=== PATIENT | female | born 1995 | race Caucasian/White ===

== ENCOUNTER 2020-07-02 06:30 | Outpatient (REF) | payer OTHER, SELFPAY ==
[2020-07-02 07:10] LABS: COVID-19 Test Negative (Negative); IDNOW Serial# 9DD0AD1C
== END 2020-07-02 06:31 | disposition home or self-care (01) ==
LOC: HO.LAB 06:30
PROVIDERS: Visit Provider Internal Medicine
DX: Z20.828 Contact with and (suspected) exposure to other viral communicable diseases (principal)
CPT/HCPCS: 87635

== ENCOUNTER 2020-10-09 17:10 | Emergency (ER) | payer OTHER, SELFPAY ==
--- NOTE | ~2020-10-09 | XR_ITS ---
EXAMINATION: XR KNEE, RIGHT CLINICAL INFORMATION: Pain after injury COMPARISON: None TECHNIQUE: Four views of the right knee. FINDINGS: Normal alignment with no fracture. There is a moderate joint effusion. No joint space narrowing. XR/XR knee RT 4V IMPRESSION: Moderate joint effusion. No fracture.
[2020-10-09 17:47] VITALS: BP 136/68; PULSE 86; RESP 16; TEMP 36.8; O2SAT 98; BMI 48.0
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
== END 2020-10-09 19:02 | disposition home or self-care (01) ==
PROVIDERS: Emergency Provider Internal Medicine; PCP Internal Medicine
DX: M25.461 Effusion, right knee (principal); M25.561 Pain in right knee
CPT/HCPCS: 73564; 99283; 99284

== ENCOUNTER 2022-01-24 04:42 | Outpatient (REF) | payer OTHER, SELFPAY ==
[2022-01-24 05:04] LABS: COVID-19 Test Positive (Negative)
== END 2022-01-24 04:43 | disposition home or self-care (01) ==
LOC: HO.LAB 04:42
PROVIDERS: Visit Provider Internal Medicine
DX: Z20.822 Contact with and (suspected) exposure to COVID-19 (principal)
CPT/HCPCS: 87635

== ENCOUNTER 2022-10-02 08:40 | Outpatient (REF) | payer OTHER, SELFPAY ==
[2022-10-02 10:50] LABS: MANUAL DIFF FLAG NO
[2022-10-02 10:58] LABS: Appearance Urine Turbid; Color Urine Yellow; Glucose Urine UA Negative (Negative); Leukocyte Esterase Urine Negative (Negative); Nitrite Urine Negative (Negative); Specific Gravity - Urine >= 1.030 (1.005-1.025); UMIC TRIGGER UA YES; Urine Blood Moderate (2+) (Negative); Urine Ketones Negative (Negative); Urine Protein Negative (Neg-Trace)
[2022-10-02 10:58] LABS: Basophils Percent Auto 0.2 % (0-2); Eosinophils Absolute Auto 0.1 X10*3/uL (0.0-0.4); Eosinophils Percent Auto 2.2 % (0-4); Hematocrit 37.8 % (37.0-47.0); Hemoglobin 12.1 g/dl (12.0-16.0); Imm Gran Abs Auto 0.01 X10*3/uL (0.00-0.03); Imm Gran Pct Auto 0.2 % (0.0-0.4); Lymphocytes Absolute Auto 0.9 X10*3/uL (1.2-4.9); Lymphocytes Percent Auto 20.9 % (20-40); Mean Corpuscular Hemoglobin 27.3 pg (27.0-33.0); Mean Corpuscular Volume 85.3 fL (80.0-98.0); Mean Platelet Volume 8.8 fL (9.4-12.3); Monocytes Absolute Auto 0.4 X10*3/uL (0.1-1.2); Monocytes Percent Auto 10.6 % (2-11); Neutrophils Absolute Auto 2.8 x10*3/uL (2.0-8.3); Neutrophils Percent Auto 65.9 % (45-73); Platelet Count 313 X10*3/uL (160-400); Red Blood Count 4.43 X10*6/uL (4.20-5.50); Red Cell Distribution Width 13.1 % (11.0-16.0); White Blood Count 4.2 X10*3/uL (4.8-10.8)
[2022-10-02 11:06] LABS: Bacteria Urine 3+ (None Seen); Hyaline Casts Urine 0-2 /LPF (0-2); RBC Urine 0-2 /HPF (0-2); Squamous Epithelial Cell Urine >20 /HPF (0-2); WBC Urine 0-5 /HPF (0-5)
[2022-10-02 11:15] LABS: Alanine Aminotransferase 14 U/L (0-31); Alkaline Phosphatase 47 U/L (39-117); Anion Gap 10 (12-20); Aspartate Amino Transferase 16 U/L (5-31); Bilirubin Total 0.7 mg/dL (0.0-1.0); Blood Urea Nitrogen 16 mg/dL (9-16); Calcium 8.2 mg/dL (8.4-10.2); Carbon Dioxide 25 mmol/L (22-29); Chloride 110 mmol/L (96-108); Cholesterol 146 mg/dL; Estimated Glomerular Filt Rate > 60; Glucose Fasting 90 mg/dL (60-99); HDL Cholesterol 35 mg/dL; LDL Cholesterol Calculated 93 mg/dl; Potassium 4.1 mmol/L (3.3-5.1); Sodium 141 mmol/L (135-145); Total Protein 6.2 g/dL (6.5-8.0); Triglycerides 90 mg/dL
[2022-10-02 11:30] LABS: TSH reflex Free T4 0.78 uIU/mL (0.32-4.0)
[2022-10-02 11:42] LABS: Microalbum/Creatinine Ratio Ur 5.5 ug/mg cr
[2022-10-03 04:48] LABS: Syphilis Screen Nonreactive (Nonreactive)
[2022-10-03 05:53] LABS: HBS Num1 108.64 mIU/mL (0-7.99); HBc Num1 0.37 S/CO (0.00-0.79); HBsAGNum1 0.28 S/CO (0.00-0.99); HIV AB/AG Nonreactive (Nonreactive); HIV Num 1 0.07 S/CO (0.00-0.99); Hepatitis B Core Antibody Nonreactive (Nonreactive); Hepatitis B Surface Antigen Negative (Negative); ~HepC Num1 0.18 S/CO (0.00-0.79); ~Hepatitis B Surface Antibody REACTIVE (Nonreactive); ~Hepatitis C Antibody Nonreactive (Nonreactive)
== END 2022-10-02 08:41 | disposition home or self-care (01) ==
LOC: HO.10HDL 08:40
PROVIDERS: Visit Provider Family Medicine
DX: Z00.00 Encounter for general adult medical examination without abnormal findings (principal); Z11.3 Encounter for screening for infections with a predominantly sexual mode of transmission; Z11.4 Encounter for screening for human immunodeficiency virus [HIV]; I10 Essential (primary) hypertension; M77.02 Medial epicondylitis, left elbow; G56.02 Carpal tunnel syndrome, left upper limb
CPT/HCPCS: 80053; 80061; 81001; 81003; 82043; 84443; 85025; 86704; 86706; 86780; 86803; 87340; 87389; 99202

== ENCOUNTER 2022-10-10 09:08 | Outpatient (REF) | payer OTHER, SELFPAY ==
--- NOTE | 2022-10-10 09:13 | EMG_ITS ---
Please see scanned EMG / Nerve Conduction Report. MTDD
== END 2022-10-10 09:09 | disposition home or self-care (01) ==
LOC: HO.NEURO 09:08
PROVIDERS: Visit Provider Physician Assistant
DX: R20.2 Paresthesia of skin (principal); R20.0 Anesthesia of skin
CPT/HCPCS: 95885; 95910

== ENCOUNTER 2022-10-25 15:30 | Outpatient (RCR) | payer OTHER, SELFPAY ==
--- NOTE | 2022-10-10 13:34 | MHC.OT.EP ---
[address] [phone] Occupational Therapy Plan of Care Patient Name: Georgina Peterson Date of Evaluation: 10/10/22 Diagnosis: Medial epicondylitis left elbow Carpal tunnel syndrome. left Pain Location: 4 Right elbow and wrist. Ache Pain Score: 4 Pain Scale Used: Numeric (0 - 10) Aggravating Factors: Use of hands. 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 She is a working parent of 2 young children and enjoys crocheting daily. 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 Thank you once again for your referral.
--- NOTE | 2022-10-25 16:21 | MHC.OT.DC ---
[address] [phone] F: [phone] Occupational Therapy Discharge Note Patient Name: Georgina Peterson Provider: Rachid Ibarra Diagnosis: Medial epicondylitis left elbow Carpal tunnel syndrome. left Date of Surgery: Date of Evaluation: 10/10/22 Date of Discharge: 10/25/22 Treatments to Date: 4 Cancellations to Date: 0 No Shows to Date: 0 Discharge Status: Achieved Goals Improved Function Independent with HEP Discharge Summary: Left elbow pain and left CTS sx resolved. Pt reports making some changes with her work space following ergonomic work space recommendations. She has been crocheting without difficulty and she has expressed interest in starting a fitness program. Goals met Electronically Signed By: Blanquita Israel OT CHT CLT Reviewed/agree with student documentation: Therapist: Please Sign and return to therapist, thank you for your referral.
== END 2022-10-25 16:21 | disposition home or self-care (01) ==
LOC: HO.OT 15:30
PROVIDERS: PCP Family Medicine; Visit Provider Physician Assistant
DX: M77.02 Medial epicondylitis, left elbow (principal); G56.02 Carpal tunnel syndrome, left upper limb
CPT/HCPCS: 97110; 97140; 97166

== ENCOUNTER → 2022-12-05 09:22 | Outpatient (BNVA) | payer OTHER, SELFPAY | PROVIDERS: PCP Family Medicine; Visit Provider Physician Assistant | DX: S80.02XA Contusion of left knee, initial encounter (principal) | CPT/HCPCS: 99212 ==

== ENCOUNTER 2023-02-13 07:58 | Outpatient (AMB) | payer OTHER, SELFPAY ==
--- NOTE | 2023-02-13 08:04 | MHC.OFFVIS ---
Intake Vital Signs 02/13/23 08:07 Height 4 ft 10 in Weight 240 lb BMI 50.2 BP 99/56 L Blood Pressure Location Lt brachial Position Sitting Pulse 88 Intake Visit Reasons: GERD, Chronic diarrhea Intake Note: Patient new consult for GERD Patient cc: GERD, nauseas, abdominal bloating, and daily diarrhea. 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 nausea- no vomiting No respiratory cardiac issues No hematemesis, hematochezia fever chills PFSH Medical History Cancer delivery delivered Heart murmur Mitral valve prolapse Surgical History History of appendectomy History of biopsy Social History (Updated 02/13/23 @ 08:34 by Sandi Forbes PA-C) Household Members Other:: single 2 kids Alcohol intake: never Patient Tobacco Use Status: Never used Tobacco e-Cigarette/Vaping Use: Never Used Second Hand Smoke Exposure: No service: No 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al status: employed 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: [employer]- [place] Cognitive needs: No Hearing needs: No Vision needs: No Review of Systems Const All systems reviewed & are unremarkable except as noted in HPI and below Card Denies chest pain and Denies dyspnea Resp Denies dyspnea GI Reports GI cramping, Reports heartburn, Reports diarrhea and Reports nausea Physical Exam Vital Signs: Last Vital Signs Pulse 88 02/13/23 08:07 BP 99/56 L 02/13/23 08:07 BMI result Body Mass Index 50.2 Const General: cooperative, healthy appearing and comfortable Orientation/consciousness: patient oriented x3 Limitations: no limitations Eyes Sclerae: sclerae normal Resp Effort & Inspection: normal respiratory effort and able to speak in complete sentences Auscultation: clear to auscultation bilaterally Cardio Rate: regular rate Rhythm: regular rhythm GI Palpation (GI): Soft to palpation and nontender Auscultation: normal bowel sounds Skin General skin exam: no rashes or lesions noted Neuro General: patient oriented x3 Extrem General: Yes full ROM Psych Appearance: grossly normal and well kempt Mental Status: mental status grossly normal Speech and movement: Normal speech and movement present and Clear speech present Thought process: Normal thought process present Thought content: Normal thought content present Insight: Good insight present (Psych) Judgement: Good judgement present (Psych) Assessment & Plan Assessment & Plan (1) Chronic diarrhea: Comment: 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, 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 If negative consider EGD colon Code(s): K52.9 - Noninfective gastroenteritis and colitis, unspecified Plan: Await stool studies (2) GERD (gastroesophageal reflux disease): Comment: Omeprazole after H pylori test Code(s): K21.9 - Gastro-esophageal reflux disease without esophagitis Plan: H pylori if positive will treat (3) History of lymphoma: Code(s): Z85.72 - Personal history of non-Hodgkin lymphomas Plan Stool studies Baseline labs H pylori if positive will treat Meanwhile begin omeprazole 20 mg daily Follow-up for results progress Orders: Orders Fecal Fat Qualitative Today K52.9 - Noninfective gastroenteritis and colitis, unspecified, Z85.72 - Personal history of non-Hodgkin lymphomas C Reactive Protein Today K52.9 - Noninfective gastroenteritis and colitis, unspecified Complete Blood Count Auto Diff Today K52.9 - Noninfective gastroenteritis and colitis, unspecified Erythrocyte Sedimentation Rate Today R19.7 - Diarrhea, unspecified Endomysial IgA rflx Titer Today K52.9 - Noninfective gastroenteritis and colitis, unspecified Transglutaminase IgA Today R19.7 - Diarrhea, unspecified CDiff Gene PCR Today K52.9 - Noninfective gastroenteritis and colitis, unspecified GI Panel Today K52.9 - Noninfective gastroenteritis and colitis, unspecified, Z85.72 - Personal history of non-Hodgkin lymphomas H pylori Ag Stool Today A04.8 - Other specified bacterial intestinal infections Patient Instructions: Stool studies Baseline labs H pylori if positive will treat Meanwhile begin omeprazole 20 mg daily Follow-up for results progress Coding Level of Care Code New Pt Level 4 (24362) Diagnoses Chronic diarrhea K52.9 GERD (gastroesophageal reflux disease) K21.9 History of lymphoma Z85.72 Time Spent (min) 30
[2023-02-13 08:07] VITALS: BP 99/56; PULSE 88; BMI 50.2
== END 2023-02-13 08:49 | disposition home or self-care (01) ==
PROVIDERS: PCP Family Medicine; Visit Provider Physician Assistant
DX: K52.9 Noninfective gastroenteritis and colitis, unspecified (principal); K21.9 Gastro-esophageal reflux disease without esophagitis; Z85.72 Personal history of non-Hodgkin lymphomas
CPT/HCPCS: 99204

== ENCOUNTER → 2023-02-13 07:58 | Outpatient (BNVA) | payer OTHER, SELFPAY | PROVIDERS: PCP Family Medicine; Visit Provider Physician Assistant | DX: K52.9 Noninfective gastroenteritis and colitis, unspecified (principal); K21.9 Gastro-esophageal reflux disease without esophagitis; Z85.72 Personal history of non-Hodgkin lymphomas | CPT/HCPCS: 99202 ==

== ENCOUNTER 2023-03-01 14:00 | Outpatient (RCR) | payer OTHER, SELFPAY ==
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
--- NOTE | 2023-03-12 12:04 | MHC.PT.DC ---
[facility] [place] Office [place] Office [place] Office [address] Connie Espinosa 140 [facility] [phone] F: [phone] F: [phone] F: [phone] F: [phone] Physical Therapy Discharge Report Diagnosis: CONTUSION L KNEE Date of Surgery: November 2022 Date of Evaluation: 02/01/23 Date of Discharge: 03/12/23 Treatments to Date: 7 Cancellations to Date: No Shows to Date: Discharge Status: Achieved Goals Improved Function Independent with HEP Discharge Summary: HAS MET PT GOALS, I HEP, SELF KT Electronically signed by: HUNG HINES PT Please sign and return to therapist. Thank you for your referral.
== END 2023-03-12 12:05 | disposition home or self-care (01) ==
LOC: HO.PT 14:00
PROVIDERS: PCP Family Medicine; Visit Provider Physician Assistant
DX: S80.02XA Contusion of left knee, initial encounter (principal)
CPT/HCPCS: 97110; 97161; 97530

== ENCOUNTER 2023-03-01 15:07 | Outpatient (REF) | payer OTHER, SELFPAY ==
[2023-03-01 15:20] LABS: MANUAL DIFF FLAG NO
[2023-03-01 16:21] LABS: Basophils Percent Auto 0.1 % (0-2); Eosinophils Absolute Auto 0.1 X10*3/uL (0.0-0.4); Eosinophils Percent Auto 1.5 % (0-4); Hematocrit 37.9 % (37.0-47.0); Hemoglobin 11.9 g/dl (12.0-16.0); Imm Gran Abs Auto 0.02 X10*3/uL (0.00-0.03); Imm Gran Pct Auto 0.3 % (0.0-0.4); Lymphocytes Absolute Auto 1.6 X10*3/uL (1.2-4.9); Lymphocytes Percent Auto 21.4 % (20-40); Mean Corpuscular HGB Conc 31.4 g/dl (31.0-35.0); Mean Corpuscular Volume 85.9 fL (80.0-98.0); Mean Platelet Volume 8.7 fL (9.4-12.3); Monocytes Absolute Auto 0.6 X10*3/uL (0.1-1.2); Neutrophils Absolute Auto 5.1 x10*3/uL (2.0-8.3); Neutrophils Percent Auto 68.7 % (45-73); Platelet Count 342 X10*3/uL (160-400); Red Blood Count 4.41 X10*6/uL (4.20-5.50); Red Cell Distribution Width 13.1 % (11.0-16.0); White Blood Count 7.4 X10*3/uL (4.8-10.8)
[2023-03-01 16:52] LABS: C Reactive Protein 0.37 mg/dL (< or = 0.50)
[2023-03-01 17:04] LABS: Erythrocyte Sedimentation Rate 8 MM/HR (0-20)
[2023-03-04 13:34] LABS: Transglutaminase IgA <1.0 U/mL
[2023-03-06 13:28] LABS: Endomysial IgA Antibody Negative (Negative)
== END 2023-03-01 15:08 | disposition home or self-care (01) ==
LOC: HO.LAB 15:07
PROVIDERS: PCP Family Medicine; Visit Provider Physician Assistant
DX: K52.9 Noninfective gastroenteritis and colitis, unspecified (principal)
CPT/HCPCS: 36415; 85025; 85652; 86140; 86231; 86364

== ENCOUNTER 2023-03-04 15:25 | Outpatient (AMB) | payer OTHER, SELFPAY ==
[2023-03-04 15:31] VITALS: BP 126/66; PULSE 72; O2SAT 100; BMI 50.7
--- NOTE | 2023-03-04 15:31 | MHC.PC.OV ---
Vital Signs 03/04/23 15:31 Height 4 ft 10 in Weight 242 lb 6 oz BMI 50.7 BP 126/66 Blood Pressure Location Lt brachial Position Sitting Pulse 72 Pulse Source Pulse Oximeter Pulse Oximetry (%) 100 Oxygen Delivery Method Room Air Intake Visit Reasons: weight management referral Intake Note: Patient is requesting weight management referral today. Allergies No Known Allergies [No Known Allergies*] Allergy (Verified 03/04/23 15:32) Tobacco use date assessed: 03/04/23 Dental Screening Dental Screen Date: 03/04/23 Did you have a dental visit in the last 12 months?: Yes Did you have a dental problem in the last 6 months where you did not have access to dental care?: No Was dental information given to patient?: No HPI weight management referral HPI Details 28 y/o female presents for a weight management referral. [facility] Medical History Cancer delivery delivered Heart murmur Mitral valve prolapse Surgical History History of appendectomy History of biopsy Social History Household Members Other:: single 2 kids Housing: Apartment Alcohol intake: never Patient Tobacco Use Status: Never used Tobacco e-Cigarette/Vaping Use: Never Used Second Hand Smoke Exposure: No service: No 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al status: employed 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: [employer]- OA Cognitive needs: No Hearing needs: No Vision needs: No Questionnaire Thrive Questionnaire Date Thrive assessed: 10/01/22 ANGEL-7 AMB Questionnaire ANGEL-7 Date ANGEL - 7 assessed: 10/01/22 Source: Developed by Drs. Aston Carlos, Danica Carreno, Remigio Edwards and colleagues, with an educational neli from [employer]. Review of Systems Const Denies chills, Denies fatigue, Denies fever(s), Denies headache(s) and Denies weakness ENT Denies dizziness and Denies headache(s) Card Denies chest pain, Denies lightheadedness, Denies dyspnea and Denies other (Palpitations) Resp Denies cough, Denies dyspnea, Denies wheezing and Denies other ( shortness of breath) Musc Denies numbness and Denies tingling Neuro Denies dizziness, Denies headache(s), Denies numbness, Denies tingling, Denies paresthesias and Denies weakness Psych Denies anxiety and Denies depression Endo Denies fatigue Aller/Immun Denies wheezing Physical exam (Primary Care) Vital Signs: Last Vital Signs Pulse 72 03/04/23 15:31 BP 126/66 03/04/23 15:31 Pulse Ox 100 03/04/23 15:31 Oxygen Delivery Method Room Air 03/04/23 15:31 BMI result Body Mass Index 50.7 Tobacco/Smoking Status: Tobacco use Status Tobacco use date assessed 03/04/23 03/04/23 15:37 Patient Tobacco Use Status Never used Tobacco 03/04/23 15:37 e-Cigarette/Vaping Use Never Used 03/04/23 15:37 Thrive Assessment: Date of Thrive Assessment Date Thrive assessed 10/01/22 03/04/23 15:37 Const General: no acute distress and well developed Nutritional Appearance: well nourished Orientation/consciousness: patient oriented x3 HENMT Head: Yes normocephalic and Yes atraumatic Eyes General: appearance normal, both eyes and all related structures Pupils: Equal, round and reactive pupils present EOM: EOMs intact bilaterally Resp Effort & Inspection: normal respiratory effort Auscultation: clear to auscultation bilaterally Cardio Rate: regular rate Rhythm: regular rhythm Heart sounds: S1 normal heart sound present, S2 normal heart sound present, no gallops, no murmurs and no rubs Neuro General: patient oriented x3 and gait normal Cranial nerves: Yes Equal, round and reactive pupils present Psych Affect: normal affect Assessment and Plan Assessment & Plan (1) Morbid obesity with BMI of 50.0-59.9, adult: Code(s): E66.01 - Morbid (severe) obesity due to excess calories; Z68.43 - Body mass index [BMI] 50.0-59.9, adult Plan: BMI greater than 50 Patient is interested in weight management program. I have referred her to [facility] weight management program. Orders: Referrals Medical Weight Management Referral E66.01 - Morbid (severe) obesity due to excess calories, Z68.43 - Body mass index [BMI] 50.0-59.9, adult Coding Level of Care Code Est Pt Level 3 (30057) Diagnoses Morbid obesity with BMI of 50.0-59.9, adult E66.01; Z68.43
== END 2023-03-04 16:09 | disposition home or self-care (01) ==
PROVIDERS: PCP Family Medicine; Visit Provider Family Medicine
DX: E66.01 Morbid (severe) obesity due to excess calories (principal); Z68.43 Body mass index [BMI] 50.0-59.9, adult
CPT/HCPCS: 99213

== ENCOUNTER 2023-03-07 19:57 | Outpatient (REF) | payer OTHER, SELFPAY ==
[2023-03-07 21:35] LABS: CDiff Gene PCR NEGATIVE (Negative)
[2023-03-08 09:31] LABS: Adenovirus F 40/41 Not Detected (Not Detect.); Astrovirus Not Detected (Not Detect.); Campylobacter Not Detected (Not Detect.); Cryptosporidium Not Detected (Not Detect.); Cyclospora cayetanensis Not Detected (Not Detect.); E. coli EAEC Not Detected (Not Detect.); E. coli EPEC Detected (Not Detect.); E. coli ETEC Not Detected (Not Detect.); E. coli STEC Not Detected (Not Detect.); Entamoeba histolytica Not Detected (Not Detect.); Giardia lamblia Not Detected (Not Detect.); Norovirus GI/GII Not Detected (Not Detect.); Plesiomonas shigelloides Not Detected (Not Detect.); Rotavirus A Not Detected (Not Detect.); Salmonella Not Detected (Not Detect.); Sapovirus Not Detected (Not Detect.); Shigella sp./EIEC Not Detected (Not Detect.); Vibrio Not Detected (Not Detect.); Vibrio Cholerae Not Detected (Not Detect.); Yersinia enterocolitica Not Detected (Not Detect.)
[2023-03-14 08:48] LABS: Fecal Fat Qualitative Normal (Normal)
== END 2023-03-07 19:58 | disposition home or self-care (01) ==
LOC: HO.LNP 19:57
PROVIDERS: Visit Provider Physician Assistant
DX: K52.9 Noninfective gastroenteritis and colitis, unspecified (principal); A04.8 Other specified bacterial intestinal infections; Z85.72 Personal history of non-Hodgkin lymphomas
CPT/HCPCS: 82705; 87338; 87493; 87507

== ENCOUNTER → 2023-03-15 10:16 | Outpatient (BNVA) | payer OTHER, SELFPAY | PROVIDERS: PCP Family Medicine; Visit Provider Physician Assistant Surgical ==

== ENCOUNTER 2023-03-21 10:04 | Outpatient (REF) | payer OTHER, SELFPAY ==
--- NOTE | ~2023-03-21 | XR_ITS ---
EXAMINATION: XR LUMBOSACRAL SPINE CLINICAL INFORMATION: Lumbar degenerative disease. COMPARISON: None available. TECHNIQUE: AP and lateral views of the lumbar spine and lateral view of the lumbosacral junction. FINDINGS: The vertebral bodies and posterior elements are normal. The disc spaces are preserved, and the vertebral alignment is normal. There is multi-level very mild thoracolumbar spondylosis. The paraspinal soft tissues are normal. XR/XR lumbar spine 2-3V IMPRESSION: 1. No acute fracture or spondylolisthesis is seen. 2. The lumbar disc spaces are well-maintained. 3. There is multi-level very mild thoracolumbar spondylosis.
== END 2023-03-21 10:05 | disposition home or self-care (01) ==
LOC: HO.HOSX 10:04
PROVIDERS: PCP Family Medicine; Visit Provider Physical Medicine & Rehabilitation
DX: M51.26 Other intervertebral disc displacement, lumbar region (principal); Z85.72 Personal history of non-Hodgkin lymphomas; Z79.899 Other long term (current) drug therapy
CPT/HCPCS: 72100; 99202

== ENCOUNTER 2023-03-21 10:04 | Outpatient (AMB) | payer OTHER, SELFPAY ==
[2023-03-21 10:42] VITALS: BMI 50.4
--- NOTE | 2023-03-21 10:42 | A.OFFVIS_ITS ---
Intake Vital Signs 03/21/23 10:42 Height 4 ft 9.5 in Weight 237 lb BMI 50.4 Intake Visit Reasons: New prob- Low back pain Intake Note: Georgina 28 yr old female presents today for her lower back pain. States pain started in 2016. No injury she can recall. Hx of back injection due to chemo therapy. States pain started shorty after her injection. States she has sharp shooting pain radiating to her bilateral hips. States right side is worse then her left. Patient has tried lidocaine patches with temporary relief. Takes tylenol PRN. Denies P.T and no longer has radiating pain ti her legs. Allergies No Known Allergies [No Known Allergies*] Allergy (Verified 03/21/23 10:43) Medication List - Last Reconciled 03/21/23 by Renetta Hernandez MD omeprazole 20 mg PO DAILY 30 days HPI HPI Comments History of Present Illness Details History of NHL 2016. On remission, now past 5 years. Was following with [facility] oncology. Had MTX injection spinal injection, 4 times, 2015-. Chemotherapy 2015-. No radiation. Non metastatic or no organ spread. Back pain started after first one. Currently mid lower back pain, goes to both hips. Used to go to legs, but not anymore. No shooting pain to feet. Had some feet numbness before but none now. Knees buckle but always thought due to weight. History of knee DJD. Back pain is constant but gets worse at least once a week, worst at 5/10. Treatment done so far: tylenol, ibuprofen, lidoderm patches, heat pad therapy - none Tries to exercise at home. No spine imaging in the past. Easily short of breath with walking. Denies chest heaviness or chest pain. Occasional night sweats. Good appetite [facility] Medical History (Updated 03/21/23 @ 11:05 by Renetta Hernandez MD) Cancer delivery delivered Heart murmur Mitral valve prolapse Surgical History History of appendectomy History of biopsy Social History (Updated 03/21/23 @ 10:43 by Vanessa Yun [facility]) Household Members Other:: single 2 kids Housing: Apartment Alcohol intake: never Patient Tobacco Use Status: Never used Tobacco e-Cigarette/Vaping Use: Never Used Second Hand Smoke Exposure: No service: No 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al status: employed 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: [employer]- OA/ rt hand Cognitive needs: No Hearing needs: No Vision needs: No Review of Systems Const All systems reviewed & are unremarkable except as noted in HPI and below Physical Exam Vital Signs: BMI result Body Mass Index 50.4 Constitutional: Patient appears to be in no acute distress, well nourished and well developed. Patient was appropriately conversant and oriented. Good historian. MSK: No specific abnormalities found on inspection of the spine and all extremities. No pain with palpation over the lumbar area. No tenderness to palpation over a ny spinous processes, facets, paraspinals, SI joint. Mild tenderness over right GT but that was not her usual source of pain. Lumbar ROM was full. Bilateral hip, knee and ankle ROM WNL. No ligamentous laxity or crepitance. No increased effusion. Straight-leg raising test negative. FABERE test positive low back pain bilateral. Gillet test is negative. Piriformis test is negative. Strength is 5/5 in all muscle groups tested. No increased tone noted. Neurological: Neurologic examination of the upper and lower extremities was nonfocal with intact sensation, muscle stretch reflexes and without focal motor deficits . Burt?s negative bilaterally. Babinski was down going bilaterally. Clonus was negative. Gait is non-antalgic without loss of balance. Patient was able to perform heel walk and toe walk. Results Reviewed Results Reviewed: NCS/EMG Dr. [place] 10/10/22 left upper extremity was normal. Previously seen by Orthopedics for both left knee and left elbow. Reviewed notes from PCP. Assessment & Plan Assessment & Plan (1) History of lymphoma: Code(s): Z85.72 - Personal history of non-Hodgkin lymphomas (2) Lumbar discogenic pain syndrome: Code(s): M51.26 - Other intervertebral disc displacement, lumbar region Plan Suspect low back pain is from discogenic pain. No definite signs of radiculopathy. No neurologic deficits on exam today. She does have history of non-Hodgkin's lymphoma. Will start with getting lumbar x-rays today. Most likely will need lumbar MRI to evaluate for disc herniation. At this time will refer to physical therapy. Instructions: Work on lumbar motion, she is also deconditioned, easily short of breath. Work to improve functional capacity. May continue Tylenol as needed. Assessment and plan discussed with patent, and patient was agreeable. All questions were answered thoroughly. Evaluate in 4 weeks if further imaging needed. Orders: Orders XR lumbar spine 2-3V Today M51.26 - Other intervertebral disc displacement, lumbar region, Z85.72 - Personal history of non-Hodgkin lymphomas PT Evaluation and Treatment Today M51.26 - Other intervertebral disc displacement, lumbar region, Z85.72 - Personal history of non-Hodgkin lymphomas Coding Level of Care Code New Pt Level 4 (90235) Diagnoses History of lymphoma Z85.72 Lumbar discogenic pain syndrome M51.26
== END 2023-03-21 11:09 | disposition home or self-care (01) ==
PROVIDERS: PCP Family Medicine; Visit Provider Physical Medicine & Rehabilitation
DX: M51.26 Other intervertebral disc displacement, lumbar region (principal); Z85.72 Personal history of non-Hodgkin lymphomas
CPT/HCPCS: 99204

== ENCOUNTER 2023-03-25 10:31 | Outpatient (AMB) | payer OTHER, SELFPAY ==
[2023-03-25 10:36] VITALS: BP 126/76; PULSE 78; BMI 52.1
--- NOTE | 2023-03-25 10:36 | MHC.OFFVIS ---
Intake Vital Signs 03/25/23 10:36 Height 4 ft 9 in Weight 241 lb BMI 52.1 BP 126/76 Blood Pressure Location Lt brachial Position Sitting Pulse 78 Intake Visit Reasons: 3 week follow up Intake Note: Patient follow up for chronic diarrhea and lab/stool results. Patient cc: nauseas on nad off, occasional GERD, and chronic diarrhea daily. 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 Heartburn has improved with PPI She continues to have approximately 3 loose stools a day. She did submit stool studies that show E coli otherwise negative as well as review blood work. She has no other GI complaints. ? 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: [employer]- OA/ rt hand Cognitive needs: No Hearing needs: No Vision needs: No Review of Systems Const All systems reviewed & are unremarkable except as noted in HPI and below GI Reports diarrhea Physical Exam Vital Signs: Last Vital Signs Pulse 78 03/25/23 10:36 BP 126/76 03/25/23 10:36 BMI result Body Mass Index 52.1 Const General: cooperative, healthy appearing, comfortable and well groomed Orientation/consciousness: patient oriented x3 Limitations: no limitations Resp Effort & Inspection: normal respiratory effort and able to speak in complete sentences Neuro General: patient oriented x3 Extrem General: Yes full ROM Psych Appearance: grossly normal and well kempt Mental Status: mental status grossly normal Speech and movement: Normal speech and movement present and Clear speech present Affect: normal affect Attitude: cooperative Thought process: Normal thought process present Thought content: Normal thought content present Insight: Good insight present (Psych) Judgement: Good judgement present (Psych) Assessment & Plan Assessment & Plan (1) Chronic diarrhea: Comment: stool studies reviewed, Will get C diff, if negative to week trial of rifaximin she will call with progress If continues to be symptomatic will get EGD colonoscopy EGD colon Code(s): K52.9 - Noninfective gastroenteritis and colitis, unspecified Plan: C diff if negative Rifaximin x2 weeks If continues with diarrhea EGD colonoscopy (2) GERD (gastroesophageal reflux disease): Comment: Negative H pylori test Continue omeprazole 20 mg daily Code(s): K21.9 - Gastro-esophageal reflux disease without esophagitis (3) E coli infection: Comment: Unlikely cause of diarrhea for greater than a year- However may have post infection- Code(s): A49.8 - Other bacterial infections of unspecified site Plan: Rifaximin x2 weeks if C diff is negative Plan If continues to be symptomatic after 2 wk course of rifaximin EGD colonoscopy Orders: Orders CDiff Gene PCR Today K52.9 - Noninfective gastroenteritis and colitis, unspecified Medications: New rifaximin 550 mg PO TID 42 tabs 0RF 14 days Patient Instructions: A very pleasant 28-year-old female status post non-Hodgkin's lymphoma 2016 treated-in remission- with chronic diarrhea Will submit stool for C diff if negative will treat with rifaximin 550 tid for 2 weeks. She will call with progress report if symptoms resolve nothing more to do, however continues with diarrhea EGD colonoscopy. Will schedule her without her having to come into the office. Coding Level of Care Code Est Pt Level 3 (30217) Diagnoses Chronic diarrhea K52.9 GERD (gastroesophageal reflux disease) K21.9 E coli infection A49.8 Time Spent (min) 20
== END 2023-03-25 12:53 | disposition home or self-care (01) ==
PROVIDERS: PCP Family Medicine; Visit Provider Physician Assistant
DX: K52.9 Noninfective gastroenteritis and colitis, unspecified (principal); K21.9 Gastro-esophageal reflux disease without esophagitis; A49.8 Other bacterial infections of unspecified site
CPT/HCPCS: 99213

== ENCOUNTER → 2023-03-25 10:31 | Outpatient (BNVA) | payer OTHER, SELFPAY | PROVIDERS: PCP Family Medicine; Visit Provider Physician Assistant | DX: K52.9 Noninfective gastroenteritis and colitis, unspecified (principal); A49.8 Other bacterial infections of unspecified site; K21.9 Gastro-esophageal reflux disease without esophagitis; Z79.899 Other long term (current) drug therapy | CPT/HCPCS: 99212 ==

== ENCOUNTER 2023-03-26 11:51 | Outpatient (REF) | payer OTHER, SELFPAY ==
[2023-03-27 12:57] LABS: CDiff Gene PCR NEGATIVE (Negative)
== END 2023-03-26 11:52 | disposition home or self-care (01) ==
LOC: HO.LNP 11:51
PROVIDERS: Physician Assistant; Visit Provider Family Medicine
DX: R61 Generalized hyperhidrosis (principal)
CPT/HCPCS: 87493

== ENCOUNTER 2023-03-26 15:24 | Outpatient (AMB) | payer OTHER, SELFPAY ==
--- NOTE | 2023-03-26 15:31 | A.OFFPC_ITS ---
Vital Signs 03/26/23 15:32 Height 5 ft 0.5 in Weight 242 lb BMI 46.5 BP 108/62 Blood Pressure Location Lt brachial Position Sitting Pulse 74 Temp 98.3 F Temp Source Oral Pulse Oximetry (%) 100 Oxygen Delivery Method Room Air Intake Visit Reasons: SOB, night sweats Intake Note: Patient is here with shortness of breath and heart palpitations for a month or two, with night sweats. Allergies No Known Allergies [No Known Allergies*] Allergy (Verified 03/26/23 15:36) Tobacco use date assessed: 03/26/23 HPI SOB, night sweats HPI Details 28 y/o female presents with complaints of shortness of breath/night sweats. Pt does have a hx of lymphoma. Pt notes similar symptoms when she first found out she had lymphoma and states she is concerned about this. She reports shortness of breath that wakes her up. She states she sometimes wakes up gasping for air. She reports someone has told her she snores a lot. She denies any excessive daytime sleepiness. She denies any fevers during the day. 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 Aston Carlos, Danica Carreno, Remigio Edwards and colleagues, with an educational neli from [employer]. Review of Systems Const Denies chills, Denies fatigue, Denies fever(s), Denies headache(s) and Denies weakness ENT Denies dizziness and Denies headache(s) Card Reports dyspnea Resp Reports dyspnea and Denies wheezing Musc Denies numbness and Denies tingling Neuro Denies dizziness, Denies headache(s), Denies numbness, Denies tingling, Denies paresthesias and Denies weakness Psych Denies anxiety and Denies depression Endo Denies fatigue Aller/Immun Denies wheezing Physical exam (Primary Care) Vital Signs: Last Vital Signs Temp 98.3 F 03/26/23 15:32 Pulse 74 03/26/23 15:32 BP 108/62 03/26/23 15:32 Pulse Ox 100 03/26/23 15:32 Oxygen Delivery Method Room Air 03/26/23 15:32 BMI result Body Mass Index 46.5 Tobacco/Smoking Status: Tobacco use Status Tobacco use date assessed 03/26/23 03/26/23 15:37 Patient Tobacco Use Status Never used Tobacco 03/26/23 15:37 e-Cigarette/Vaping Use Never Used 03/26/23 15:37 Thrive Assessment: Date of Thrive Assessment Date Thrive assessed 10/01/22 03/26/23 15:37 Const General: no acute distress and well developed Nutritional Appearance: obese morbidly obese Orientation/consciousness: patient oriented x3 HENMT Head: Yes normocephalic and Yes atraumatic Eyes General: appearance normal, both eyes and all related structures Pupils: Equal, round and reactive pupils present EOM: EOMs intact bilaterally Resp Effort & Inspection: normal respiratory effort Auscultation: clear to auscultation bilaterally Cardio Rate: regular rate Rhythm: regular rhythm Heart sounds: S1 normal heart sound present, S2 normal heart sound present, no gallops, no murmurs and no rubs Neuro General: patient oriented x3 and gait normal Cranial nerves: Yes Equal, round and reactive pupils present Psych Affect: normal affect Assessment and Plan Assessment & Plan (1) Shortness of breath: Code(s): R06.02 - Shortness of breath Plan: 28-year-old female with history of lymphoma presents with night sweats and shortness of breath. Will check labs including CBC and refer her back to her hematology oncologist to rule out recurrence of lymphoma. DiffDx includes: Viral illnesses and I am checking COVID/flu/are is the as well as EBV&CMV. TB - checking T spot She notes that she snores and boyfriend notes that she gasps and holds her breath at night - probable sleep apnea which may be incidental or related to the above symptoms. I have referred her to Sleep Medicine (2) Night sweats: Code(s): R61 - Generalized hyperhidrosis Plan: As above (3) History of lymphoma: Code(s): Z85.72 - Personal history of non-Hodgkin lymphomas Plan: As above (4) Sleep apnea: Code(s): G47.30 - Sleep apnea, unspecified Plan: As above Also advised she sleep on her side and not her back Orders: Orders Comprehensive Dolph. Panel Fast Today Z00.00 - Encounter for general adult medical examination without abnormal findings, Z85.72 - Personal history of non- Hodgkin lymphomas Complete Blood Count Auto Diff Today Z00.00 - Encounter for general adult medical examination without abnormal findings, Z85.72 - Personal history of non- Hodgkin lymphomas CMV DNA PCR Qn Today R61 - Generalized hyperhidrosis EBV DNA QL PCR Today R61 - Generalized hyperhidrosis SARS-CoV2/FLU/RSV Today R61 - Generalized hyperhidrosis, Z20.822 - Contact with and (suspected) exposure to COVID-19 T Spot TB Today R06.02 - Shortness of breath, R61 - Generalized hyperhidrosis Referrals Hematology & Oncology Referral R61 - Generalized hyperhidrosis, Z85.72 - Personal history of non-Hodgkin lymphomas Sleep Medicine Referral G47.30 - Sleep apnea, unspecified Coding Level of Care Code Est Pt Level 4 (02246) Diagnoses Shortness of breath R06.02 Night sweats R61 History of lymphoma Z85.72 Sleep apnea G47.30
[2023-03-26 15:32] VITALS: BP 108/62; PULSE 74; TEMP 36.8; O2SAT 100; BMI 46.5
== END 2023-03-26 16:31 | disposition home or self-care (01) ==
PROVIDERS: PCP Family Medicine; Visit Provider Family Medicine
DX: R06.02 Shortness of breath (principal); R61 Generalized hyperhidrosis; Z85.72 Personal history of non-Hodgkin lymphomas; G47.30 Sleep apnea, unspecified
CPT/HCPCS: 99214

== ENCOUNTER 2023-03-27 11:50 | Outpatient (REF) | payer OTHER, SELFPAY ==
[2023-03-27 13:45] LABS: Influenza A PCR NEGATIVE (Negative); Influenza B PCR NEGATIVE (Negative); Resp Syncy Virus RNA Qual PCR NEGATIVE (Negative); SARS COV2 PCR INHOUSE NEGATIVE (Negative)
== END 2023-03-27 11:51 | disposition home or self-care (01) ==
LOC: HO.LNP 11:50
PROVIDERS: Visit Provider Family Medicine
DX: Z20.822 Contact with and (suspected) exposure to COVID-19 (principal); R61 Generalized hyperhidrosis
CPT/HCPCS: 0241U

== ENCOUNTER 2023-04-12 11:01 | Outpatient (AMB) | payer OTHER, SELFPAY ==
--- NOTE | 2023-04-12 11:11 | MHC.OFFVISWM ---
Intake VS Expanded 04/12/23 11:31 Height 4 ft 9.5 in Weight 237 lb 12.8 oz BMI 50.6 BP 122/66 Blood Pressure Location Rt brachial Blood Pressure Position Sitting Pulse 78 Pulse Source Pulse Oximeter Temp 97.1 F Temperature Source Tympanic Pulse Oximetry 96 Oxygen Delivery Method Room Air Body Fat 118.4 Body Fat Percentage 49.8 Free Fat Mass 119.2 Muscle Mass 113.4 Visceral Mass 16.0 Water Mass 85.8 BMR 1,748 Intake Visit Reasons: (OV) [employer] SWL BMI 50.4 Allergies No Known Allergies [No Known Allergies*] Allergy (Verified 04/12/23 11:12) HPI HPI Comments History of Present Illness Details This is a 28 year old woman who is here to start SWL program with SWL classes. Her goal is to be healthier for her children. She reports first being concerned about her weight 2020. DONTRELL =9, no therpairst presently. She has tried multiple methods of weight loss including gym without permanent results. She lives with boyfriend, sister and 2 children. 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 She wakes at: 7am, bed at 10- 11 pm Breakfast: 8:30 - 2 cups coffee with cream and sugar. Lindsay or bagel with butter or creaam cheese, may have eggs. Lunch: 11:30 am - cafeteria meal with sides. water Dinner: 7 pm - chicken, rice/beans - vegetables of corn or broccoli daily. water After dinner: ice cream in summer - may have salted nuts Other snacks: has salted nuts during the day - once Liquids: Stopped soda, no fruit juices, ocassional sweet drinks Alcohol intake: once a month - 3-4 drinks of mixed drinks, tobacco: none, marijuana: none Exercise:PT routine for back and knee pain exercise. Last mammogram: too young Last pap smear: up to date control method: none know - will make gym appt DONTRELL: 9 ESS: 4 GERD: 16 QOL: 98 PFSH Medical History (Updated 04/12/23 @ 12:08 by Mily Mcfarland PA-C) delivery delivered Mitral valve prolapse Heart murmur Cancer Surgical History (Updated 04/12/23 @ 11:31 by Leigh Guevara CMA) Hx of section History of appendectomy History of biopsy Social History Household Members Other:: single 2 kids Housing: Apartment Alcohol intake: never Patient Tobacco Use Status: Never used Tobacco e-Cigarette/Vaping Use: Never Used Second Hand Smoke Exposure: No service: No 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al status: employed 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: [employer]- OA/ rt 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 Cognitive needs: No Hearing needs: No Vision needs: No Physical Exam Const General: cooperative, no acute distress and well developed Nutritional Appearance: obese Orientation/consciousness: patient oriented x3 HEENT Head: Yes normal to inspection Neck Neck: Yes normal visual inspection Thyroid: Thyroid normal Resp Effort & Inspection: normal respiratory effort Auscultation: clear to auscultation bilaterally Cardio Rate: regular rate Rhythm: regular rhythm Heart sounds: S1 normal heart sound present, S2 normal heart sound present and no murmurs GI Inspection: No distended and Yes obesity Palpation (GI): Soft to palpation, nontender and no guarding Skin General skin exam: no rashes or lesions noted and other (warm and dry) Wounds: no wounds Hair: normal Neuro General: patient oriented x3 Extrem General: Yes no pedal edema and Yes no calf tenderness Psych Attitude: cooperative Thought process: Normal thought process present Thought content: Normal thought content present Insight: Good insight present (Psych) Judgement: Good judgement present (Psych) Assessment & Plan Assessment & Plan (1) Morbid obesity: Code(s): E66.01 - Morbid (severe) obesity due to excess calories Plan: This is a 28 yo woman with morbid obesity who will start SWL program to prepare for bariatric surgery. Blood work, h pylori , CXR, ECG, Abd ULS and UGI have been ordered. She is being scheduled for RD and BH initial consultations. She will start SWL classes and watch at 3 classes before her next appt with Radha. 1. Adequate sleep of 7-8 hours per night discussed 2. Healthy meal plan - stop all sweetened drinks All meals/MR's need to take 20 minutes to complete 8:30 coffee - with 1% milk only, stevia OK 8am - 30 gram shake 11:30 am - yogurt with 1/4 c berries or 2 hb eggs or bar 3:30 pm- shake 7 pm- dinner of 4 oz lean protein, 6 oz vegetable, 1 serving fruit - total per day 9pm- if needs half bar in 6 pieces Exercise - Cardio 4 d week LS 2 mile videos to start The importance of avoiding and breast feeding for at least 18 months after bariatric surgery was discussed in the information session and was reinforced today. Will make gym appt for contraception Pt will purchase body composition analyzer (recommended list given to patient) and weight herself weekly. Next appt with me in 3 weeks. Text me with any questions and weekly weights. Patient is morbidly obese and is not considered stable at this time.?I spent a total of 60 minutes reviewing/updating records, examining the patient and counseling the patient on weight management as detailed above. (2) GERD (gastroesophageal reflux disease): Comment: Negative H pylori test Continue omeprazole 20 mg daily Code(s): K21.9 - Gastro-esophageal reflux disease without esophagitis Orders: Orders Insulin Today E66.01 - Morbid (severe) obesity due to excess calories, K21.9 - Gastro-esophageal reflux disease without esophagitis, Z01.818 - Encounter for other preprocedural examination Complete Blood Count Auto Diff Today E66.01 - Morbid (severe) obesity due to excess calories, K21.9 - Gastro-esophageal reflux disease without esophagitis, Z01.818 - Encounter for other preprocedural examination Zinc Today E66.01 - Morbid (severe) obesity due to excess calories, K21.9 - Gastro-esophageal reflux disease without esophagitis, Z01.818 - Encounter for other preprocedural examination Vitamin B1 Today E66.01 - Morbid (severe) obesity due to excess calories, K21.9 - Gastro-esophageal reflux disease without esophagitis, Z01.818 - Encounter for other preprocedural examination TSH reflex Free T4 Today E66.01 - Morbid (severe) obesity due to excess calories, K21.9 - Gastro-esophageal reflux disease without esophagitis, Z01.818 - Encounter for other preprocedural examination XR chest 2V Today E66.01 - Morbid (severe) obesity due to excess calories, K21.9 - Gastro-esophageal reflux disease without esophagitis, Z01.818 - Encounter for other preprocedural examination FL upper GI w air Today E66.01 - Morbid (severe) obesity due to excess calories, K21.9 - Gastro-esophageal reflux disease without esophagitis, Z01.818 - Encounter for other preprocedural examination Lipid Panel Today E66.01 - Morbid (severe) obesity due to excess calories, K21.9 - Gastro-esophageal reflux disease without esophagitis, Z01.818 - Encounter for other preprocedural examination IRON PROFILE Today E66.01 - Morbid (severe) obesity due to excess calories, K21.9 - Gastro-esophageal reflux disease without esophagitis, Z01.818 - Encounter for other preprocedural examination Vitamin B12 and Folate Today E66.01 - Morbid (severe) obesity due to excess calories, K21.9 - Gastro-esophageal reflux disease without esophagitis, Z01.818 - Encounter for other preprocedural examination Comprehensive Met. Panel Today E66.01 - Morbid (severe) obesity due to excess calories, K21.9 - Gastro-esophageal reflux disease without esophagitis, Z01.818 - Encounter for other preprocedural examination Vitamin A Today E66.01 - Morbid (severe) obesity due to excess calories, K21.9 - Gastro-esophageal reflux disease without esophagitis, Z01.818 - Encounter for other preprocedural examination C Reactive Protein Today E66.01 - Morbid (severe) obesity due to excess calories, K21.9 - Gastro-esophageal reflux disease without esophagitis, Z01.818 - Encounter for other preprocedural examination Ferritin Today E66.01 - Morbid (severe) obesity due to excess calories, K21.9 - Gastro-esophageal reflux disease without esophagitis, Z01.818 - Encounter for other preprocedural examination PTHI Today E66.01 - Morbid (severe) obesity due to excess calories, K21.9 - Gastro-esophageal reflux disease without esophagitis, Z01.818 - Encounter for other preprocedural examination H Pylori Breath Test Today E66.01 - Morbid (severe) obesity due to excess calories, K21.9 - Gastro-esophageal reflux disease without esophagitis, Z01.818 - Encounter for other preprocedural examination Vitamin D 25-OH Total Today E66.01 - Morbid (severe) obesity due to excess calories, K21.9 - Gastro-esophageal reflux disease without esophagitis, Z01.818 - Encounter for other preprocedural examination Hemoglobin A1c Today E66.01 - Morbid (severe) obesity due to excess calories, K21.9 - Gastro-esophageal reflux disease without esophagitis, Z01.818 - Encounter for other preprocedural examination US abdomen comp w elastography Today E66.01 - Morbid (severe) obesity due to excess calories, K21.9 - Gastro-esophageal reflux disease without esophagitis, Z01.818 - Encounter for other preprocedural examination ECG 12 lead EKG Today E66.01 - Morbid (severe) obesity due to excess calories, K21.9 - Gastro-esophageal reflux disease without esophagitis, Z01.818 - Encounter for other preprocedural examination Referrals Behavioral Health Referral E66.01 - Morbid (severe) obesity due to excess calories, K21.9 - Gastro-esophageal reflux disease without esophagitis, Z01.818 - Encounter for other preprocedural examination Nutrition/Dietitian Referral E66.01 - Morbid (severe) obesity due to excess calories, K21.9 - Gastro-esophageal reflux disease without esophagitis, Z01.818 - Encounter for other preprocedural examination Coding Level of Care Code New Pt Level 5 (43677) Diagnoses Morbid obesity E66.01 GERD (gastroesophageal reflux disease) K21.9
[2023-04-12 11:31] VITALS: BP 122/66; PULSE 78; TEMP 36.2; O2SAT 96; BMI 50.6
[2023-04-14 10:31] LABS: H Pylori Breath Test Negative (Negative)
== END 2023-04-12 12:11 | disposition home or self-care (01) ==
PROVIDERS: PCP Family Medicine; Visit Provider Physician Assistant
DX: E66.01 Morbid (severe) obesity due to excess calories (principal); Z68.43 Body mass index [BMI] 50.0-59.9, adult; K21.9 Gastro-esophageal reflux disease without esophagitis
CPT/HCPCS: 99205

== ENCOUNTER → 2023-04-12 11:01 | Outpatient (BNVA) | payer OTHER, SELFPAY | PROVIDERS: PCP Family Medicine; Visit Provider Physician Assistant | DX: Z11.0 Encounter for screening for intestinal infectious diseases (principal); E66.01 Morbid (severe) obesity due to excess calories; K21.9 Gastro-esophageal reflux disease without esophagitis; Z68.43 Body mass index [BMI] 50.0-59.9, adult | CPT/HCPCS: 83013; 99211 ==

== ENCOUNTER 2023-04-16 11:47 | Outpatient (REF) | payer OTHER, SELFPAY ==
--- NOTE | ~2023-04-16 | XR_ITS ---
EXAMINATION: XR CHEST CLINICAL INFORMATION: Morbid obesity due to excess calories COMPARISON: 10/29/2019, 10/11/2017 TECHNIQUE: 2 views of the chest were obtained. FINDINGS: There is no gross pneumothorax. No pleural effusion. No focal consolidation to suggest pneumonia. Heart size is normal. XR/XR chest 2V IMPRESSION: No evidence of pneumonia.
== END 2023-04-16 11:48 | disposition home or self-care (01) ==
LOC: HO.XRAY 11:47
PROVIDERS: Visit Provider Physician Assistant
DX: Z01.818 Encounter for other preprocedural examination (principal); E66.01 Morbid (severe) obesity due to excess calories; K21.9 Gastro-esophageal reflux disease without esophagitis
CPT/HCPCS: 71046

== ENCOUNTER 2023-04-17 11:00 | Outpatient (RCR) | payer OTHER, SELFPAY | END 2023-05-20 14:55 | disposition home or self-care (01) | LOC: HO.PT 11:00 | PROVIDERS: PCP Family Medicine; Visit Provider Physical Medicine & Rehabilitation | DX: M51.26 Other intervertebral disc displacement, lumbar region (principal); Z85.72 Personal history of non-Hodgkin lymphomas | CPT/HCPCS: 97110; 97140; 97161; 97530 ==

== ENCOUNTER → 2023-04-26 11:50 | Outpatient (REF) | payer OTHER, SELFPAY ==
--- NOTE | 2023-04-26 11:58 | ECG_ITS ---
Test Reason : obesity Blood Pressure : / mmHG Vent. Rate : 063 BPM Atrial Rate : 063 BPM P-R Int : 162 ms QRS Dur : 080 ms QT Int : 398 ms P-R-T Axes : 027 070 017 degrees QTc Int : 407 ms Normal sinus rhythm Nonspecific T wave abnormality Abnormal ECG When compared with ECG of 26-MAY-2016 12:19, No significant change was found Referred By: Mily Mcfarland Electronically Signed By:CHILO HERNANDEZ
== END ==
LOC: HO.CARD 11:50
PROVIDERS: PCP Family Medicine; Visit Provider Physician Assistant
DX: Z01.818 Encounter for other preprocedural examination (principal); K21.9 Gastro-esophageal reflux disease without esophagitis; E66.01 Morbid (severe) obesity due to excess calories
CPT/HCPCS: 93005

== ENCOUNTER 2023-04-27 10:47 | Outpatient (REF) | payer OTHER, SELFPAY ==
[2023-04-27 11:01] LABS: MANUAL DIFF FLAG NO
[2023-04-27 11:10] LABS: Basophils Percent Auto 0.3 % (0-2); Eosinophils Absolute Auto 0.1 X10*3/uL (0.0-0.4); Eosinophils Percent Auto 1.3 % (0-4); Hematocrit 39.8 % (37.0-47.0); Hemoglobin 12.5 g/dl (12.0-16.0); Imm Gran Abs Auto 0.02 X10*3/uL (0.00-0.03); Imm Gran Pct Auto 0.3 % (0.0-0.4); Lymphocytes Absolute Auto 1.6 X10*3/uL (1.2-4.9); Lymphocytes Percent Auto 25.4 % (20-40); Mean Corpuscular HGB Conc 31.4 g/dl (31.0-35.0); Mean Corpuscular Hemoglobin 26.8 pg (27.0-33.0); Mean Corpuscular Volume 85.4 fL (80.0-98.0); Mean Platelet Volume 8.7 fL (9.4-12.3); Monocytes Absolute Auto 0.4 X10*3/uL (0.1-1.2); Monocytes Percent Auto 6.7 % (2-11); Platelet Count 364 X10*3/uL (160-400); Red Blood Count 4.66 X10*6/uL (4.20-5.50); Red Cell Distribution Width 13.8 % (11.0-16.0); White Blood Count 6.1 X10*3/uL (4.8-10.8)
[2023-04-27 11:26] LABS: Estimated Average Glucose 100 mg/dL; Hemoglobin A1c % 5.1 % (<6.0)
[2023-04-27 11:58] LABS: C Reactive Protein 0.18 mg/dL (< or = 0.50); Iron 44 mcg/dL (30-160); Percent Iron Saturation 22 % (15-50); Total Iron Binding Capacity 200 mcg/dL (228-428); Unsaturated Iron Binding 156 ug/dL
[2023-04-27 12:13] LABS: Ferritin 48 ng/mL (10-122); Vitamin D 25-OH Total 32.6 ng/mL (>30)
[2023-04-27 12:27] LABS: Folate 9.7 ng/mL (> or = 4.0); Vitamin B12 616 pg/mL (200-900)
[2023-04-30 14:43] LABS: Calcium (PTHI) 8.8 mg/dL (8.6-10.2); PTHI 41 pg/mL (16-77)
[2023-04-30 17:53] LABS: Zinc 82 mcg/dL (60-130)
[2023-05-02 11:00] LABS: Vitamin A 55 mcg/dL (38-98)
[2023-05-04 06:59] LABS: Vitamin B1 13 nmol/L (8-30)
== END 2023-04-27 10:48 | disposition home or self-care (01) ==
LOC: HO.LAB 10:47
PROVIDERS: PCP Family Medicine; Referring Provider Family Medicine; Visit Provider Physician Assistant
DX: Z01.818 Encounter for other preprocedural examination (principal); E66.01 Morbid (severe) obesity due to excess calories; K21.9 Gastro-esophageal reflux disease without esophagitis
CPT/HCPCS: 36415; 82306; 82607; 82728; 82746; 83036; 83540; 83970; 84425; 84590; 84630; 85025; 86140

== ENCOUNTER → 2023-04-30 11:18 | Outpatient (BNVA) | payer OTHER, SELFPAY | PROVIDERS: PCP Family Medicine; Visit Provider Dietitian, Registered | DX: E66.9 Obesity, unspecified (principal); Z71.3 Dietary counseling and surveillance | CPT/HCPCS: 97802 ==

== ENCOUNTER 2023-04-30 16:17 | Outpatient (AMB) | payer OTHER, SELFPAY ==
[2023-04-30 16:19] VITALS: BP 94/52; PULSE 81; O2SAT 98; BMI 50.4
--- NOTE | 2023-04-30 16:19 | A.OFFPC_ITS ---
Vital Signs 04/30/23 16:19 Height 4 ft 9.5 in Weight 237 lb BMI 50.4 BP 94/52 L Blood Pressure Location Lt brachial Position Sitting Pulse 81 Pulse Source Pulse Oximeter Pulse Oximetry (%) 98 Oxygen Delivery Method Room Air Intake Visit Reasons: f/u shortness of breath Intake Note: Patient is here to follow up on shortness of breath today. Allergies No Known Allergies [No Known Allergies*] Allergy (Verified 04/30/23 16:23) Tobacco use date assessed: 04/30/23 HPI f/u shortness of breath HPI Details 28 y/o female presents to f/u shortness of breath. Pt had been having complaints of night sweats Hx of lymphoma. She reports she has an appt. with Heme Onc at the end of April. Pt reports her breathing is okay today. HPI Comments History of Present Illness Details Documentation assistance for Jose Fox MD, was provided by Esdras Nicholson,?Reimbursement Specialist on 04/30/2023 4:53 PM EST. I, Dr. Fox, have read, observed, and verified documentation.? [facility] Medical History delivery delivered Mitral valve prolapse Heart murmur Cancer Surgical History Hx of section History of appendectomy History of biopsy Social History Household Members Other:: single 2 kids Housing: Apartment Alcohol intake: never Patient Tobacco Use Status: Never used Tobacco e-Cigarette/Vaping Use: Never Used Second Hand Smoke Exposure: No service: No 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al status: employed 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: [employer]- OA/ rt hand Cognitive needs: No Hearing needs: No Vision needs: No Questionnaire Thrive Questionnaire Date Thrive assessed: 10/01/22 ANGEL-7 AMB Questionnaire ANGEL-7 Date ANGEL - 7 assessed: 10/01/22 Source: Developed by Drs. Aston Carlos, Danica Carreno, Remigio Edwards and colleagues, with an educational neli from [employer]. ACT Questionnaire In the past 4 weeks, how much of the time did your asthma keep you from getting as much done at work, school or at home?: None of the time During the past 4 weeks, how often have you had shortness of breath?: 1-2 times a week (twice in the past 4 weeks) During the past 4 weeks, how often did your asthma symptoms wake you up at night or earlier than usual in the morning?: Not at all During the past 4 weeks, how often have you had to use your rescue inhaler or nebulizer medication?: Not at all How would you rate your asthma control during the past 4 weeks?: Completely controlled Score: 24 Physical exam (Primary Care) Vital Signs: Last Vital Signs Pulse 81 04/30/23 16:19 BP 94/52 L 04/30/23 16:19 Pulse Ox 98 04/30/23 16:19 Oxygen Delivery Method Room Air 04/30/23 16:19 BMI result Body Mass Index 50.4 Tobacco/Smoking Status: Tobacco use Status Tobacco use date assessed 04/30/23 04/30/23 16:31 Patient Tobacco Use Status Never used Tobacco 04/30/23 16:31 e-Cigarette/Vaping Use Never Used 04/30/23 16:31 Thrive Assessment: Date of Thrive Assessment Date Thrive assessed 10/01/22 04/30/23 16:31 Const Nutritional Appearance: obese morbidly obese Assessment and Plan Assessment & Plan (1) Shortness of breath: Code(s): R06.02 - Shortness of breath Plan: This?has?improved. Chest?x-ray?which?was?ordered?by?weight?management?is?clear. History?of?childhood?asthma.??Currently?no?wheezing?and?lung?auscultation?is?nor mal She?will?let?me?know?if?she?is?having?any?more?difficulties. (2) Morbid obesity: Code(s): E66.01 - Morbid (severe) obesity due to excess calories Plan: Has?lost?about?5?lb?since?the?end?of?February Continue?to?work?at?weight?loss?and?follow-up?with?weight?management (3) Night sweats: Code(s): R61 - Generalized hyperhidrosis Plan: Unclear?cause.??Labs?are?ordered. She?does?have?a?history?of?lymphoma.??She?is?already?referred?to?Hematology- Oncology?as?she?requested?a?specialist. She?can?follow-up?with?me?regarding?her?labs?in?3-4?weeks Coding Level of Care Code Est Pt Level 4 (74179) Diagnoses Shortness of breath R06.02 Morbid obesity E66.01 Night sweats R61
== END 2023-04-30 17:00 | disposition home or self-care (01) ==
PROVIDERS: PCP Family Medicine; Visit Provider Family Medicine
DX: R06.02 Shortness of breath (principal); E66.01 Morbid (severe) obesity due to excess calories; R61 Generalized hyperhidrosis; Z68.43 Body mass index [BMI] 50.0-59.9, adult
CPT/HCPCS: 99214

== ENCOUNTER 2023-05-01 09:19 | Outpatient (AMB) | payer OTHER, SELFPAY ==
[2023-05-01 09:55] VITALS: BMI 50.4
--- NOTE | 2023-05-01 09:55 | MHC.OFFVIS ---
Intake Vital Signs 05/01/23 09:55 Height 4 ft 9.5 in Weight 237 lb BMI 50.4 Intake Visit Reasons: OV- Low back pain Intake Note: Georgina 28 yr old female presents today for her follow up visit Lumbar discogenic pain syndrome s/p therapy. States she has noticed improvement in her back pain. States therapy has relief some of her pain and discomfort. Allergies No Known Allergies [No Known Allergies*] Allergy (Verified 05/01/23 10:00) Medication List - Last Reconciled 05/01/23 by Renetta Hernandez MD metronidazole 500 mg PO Q8H 14 days omeprazole 20 mg PO DAILY 30 days HPI HPI Comments History of Present Illness Details History of NHL 2016. On remission, now past 5 years. Was following with [facility] oncology. Had MTX injection spinal injection, 4 times, 2015-. Chemotherapy 2015-. No radiation. Non metastatic or no organ spread. Back pain started after first one. Currently mid lower back pain, goes to both hips. Used to go to legs, but not anymore. No shooting pain to feet. Had some feet numbness before but none now. Knees buckle but always thought due to weight. History of knee DJD. Back pain is constant but gets worse at least once a week, worst at 5/10. Easily short of breath with walking. Denies chest heaviness or chest pain. Occasional night sweats. Good appetite Treatment done so far: tylenol, ibuprofen, lidoderm patches, heat pad Tries to exercise at home. we referred her to therapy - finished last week, 12 sessions Lumbar xray good disc spaces. Now, still a bit of back pain, not as bad. in lower back. Non radicular. No numbness on legs. No bladder/bowel changes. Oncology follow up in April. No new issues from PCP. [facility] Medical History delivery delivered Mitral valve prolapse Heart murmur Cancer Surgical History Hx of section History of appendectomy History of biopsy Social History Household Members Other:: single 2 kids Housing: Apartment Alcohol intake: never Patient Tobacco Use Status: Never used Tobacco e-Cigarette/Vaping Use: Never Used Second Hand Smoke Exposure: No service: No 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al status: employed 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: [employer]- OA/ rt hand Cognitive needs: No Hearing needs: No Vision needs: No Review of Systems Const All systems reviewed & are unremarkable except as noted in HPI and below Physical Exam Vital Signs: BMI result Body Mass Index 50.4 Constitutional: Patient appears to be in no acute distress, well nourished and well developed. Patient was appropriately conversant and oriented. Good historian. MSK: No specific abnormalities found on inspection of the spine and all extremities. No pain with palpation over the lumbar area. No tenderness to palpation over any spinous processes, facets, paraspinals. Right SI joint is tender today. Lumbar ROM was full. Bilateral hip, knee and ankle ROM WNL. No ligamentous laxity or crepitance. No increased effusion. Straight-leg raising test negative. FABERE test positive low back pain bilateral. Gillet test is negative. Piriformis test is negative. Strength is 5/5 in all muscle groups tested. No increased tone noted. Neurological: Neurologic examination of the upper and lower extremities was nonfocal with intact sensation, muscle stretch reflexes and without focal motor deficits . Burt?s negative bilaterally. Clonus was negative. Gait is non-antalgic without loss of balance. Results Reviewed Results Reviewed: I independently reviewed the results of the following: Lumbar x-rays done last visit showed intact disc spaces. IMPRESSION: 1. No acute fracture or spondylolisthesis is seen. 2. The lumbar disc spaces are well-maintained. 3. There is multi-level very mild thoracolumbar spondylosis. I reviewed records from the following: PCP Assessment & Plan Assessment & Plan (1) History of lymphoma: Code(s): Z85.72 - Personal history of non-Hodgkin lymphomas (2) Discogenic low back pain: Code(s): M51.36 - Other intervertebral disc degeneration, lumbar region (3) Sacroiliac joint dysfunction of right side: Code(s): M53.3 - Sacrococcygeal disorders, not elsewhere classified Plan Exam shows tenderness on right SI joint. Her on and off pain could be from SI joint dysfunction. Continue exercises learned from PT. Although low suspicion, still prudent to get lumbar MRI with and without contrast given her history of lymphoma. Patient agrees. Assessment and plan discussed with patient, and patient was agreeable. All questions were answered thoroughly. Follow-up after MRI. Renetta Hernandez MD, [facility]ES[facility] Board Certified, [place] Board of [employer] Medicine and Rehabilitation (ABPMR) Board Certified, [place] Board of Electrodiagnostic Medicine (ABEM) Orders: Orders MR lumbar spine wo/w con Today M51.36 - Other intervertebral disc degeneration, lumbar region, M53.3 - Sacrococcygeal disorders, not elsewhere classified, Z85.72 - Personal history of non-Hodgkin lymphomas Coding Level of Care Code Est Pt Level 4 (52265) Diagnoses History of lymphoma Z85.72 Discogenic low back pain M51.36 Sacroiliac joint dysfunction of right side M53.3
== END 2023-05-01 11:26 | disposition home or self-care (01) ==
PROVIDERS: PCP Family Medicine; Visit Provider Physical Medicine & Rehabilitation
DX: Z85.72 Personal history of non-Hodgkin lymphomas (principal); M51.36 Other intervertebral disc degeneration, lumbar region; M53.3 Sacrococcygeal disorders, not elsewhere classified
CPT/HCPCS: 99214

== ENCOUNTER → 2023-05-01 09:19 | Outpatient (BNVA) | payer OTHER, SELFPAY | PROVIDERS: PCP Family Medicine; Visit Provider Physical Medicine & Rehabilitation | DX: M51.36 Other intervertebral disc degeneration, lumbar region (principal); M53.3 Sacrococcygeal disorders, not elsewhere classified; Z85.72 Personal history of non-Hodgkin lymphomas; Z92.3 Personal history of irradiation | CPT/HCPCS: 99212 ==

== ENCOUNTER 2023-05-14 08:27 | Outpatient (REF) | payer OTHER, SELFPAY ==
--- NOTE | ~2023-05-14 | US_ITS ---
EXAMINATION: US COMPLETE ABDOMEN WITH LIVER ELASTOGRAPHY CLINICAL INFORMATION: Obesity. COMPARISON: None available. TECHNIQUE: Real-time imaging of the abdominal viscera. Noninvasive ultrasound liver fibrosis assessment is performed using Celina ElastPQ point quantification shear wave elastography (2D-SWE) with a C5-2 MHz transducer. Multiple elastography samples are obtained. FINDINGS: PANCREAS: Normal. The visualized pancreatic head and body are normal in appearance. The remainder of the pancreas is obscured from visualization by the overlying bowel gas. ABDOMINAL AORTA: The proximal, middle, and distal aortic segments are normal in caliber. INFERIOR VENA CAVA: Visualized portions are normal. LIVER: The liver demonstrates borderline increased size and normal contour and echogenicity. No focal lesion or intrahepatic biliary duct dilatation. The right lobe measures 17.0 cm in length. The left lobe measures 8.4 cm in length. Portal flow is towards the liver (hepatopetal). Shear wave liver elastography median stiffness is 1.91 m/s (reference: normal median stiffness is 1.3 m/s or less). IQR/median stiffness to assess sampling precision is 0.14 (reference: good quality data set is IQR/median stiffness of 0.15 or less). GALLBLADDER: Normal. The gallbladder is physiologically distended without evidence of stones, sludge, polyps, wall thickening or pericholecystic fluid. COMMON BILE DUCT: Normal in caliber measuring 0.3 cm in diameter. RIGHT KIDNEY: Normal. No hydronephrosis. No renal calculi or focal parenchymal lesions. The kidney measures 10.7 cm in maximum dimension. LEFT KIDNEY: Normal. No hydronephrosis. No renal calculi or focal parenchymal lesions. The kidney measures 9.9 cm in maximum dimension. SPLEEN: Normal. The spleen measures 10.0 cm in maximum dimension. FREE FLUID: None. US/US abdomen comp w elastography IMPRESSION: 1. There is borderline hepatomegaly 2. Liver elastography: Measurements are suggestive of compensated advanced chronic liver disease but need further test for confirmation. REFERENCE: Society of Radiologists in Ultrasound Liver Stiffness Thresholds (2020): LIVER STIFFNESS THRESHOLDS: *Liver Stiffness equal or less than 1.3 m/s: High probability of being normal. *Liver Stiffness less than 1.7 m/s: In the absence of other known clinical signs, rules out compensated advanced chronic liver disease. *Liver Stiffness 1.7-2.1 m/s: Suggestive of compensated advanced chronic liver disease but need further test for confirmation. *Liver Stiffness over 2.1 m/s: Rules in compensated advanced chronic liver disease. *Liver Stiffness over 2.4 m/s: Suggestive of clinically significant portal hypertension. QUALITY OF DATA SET: *IQR/Median value equal or less than 0.15 implies a quality data set. *IQR/Median value over 0.15 implies a poor quality data set. SIGNIFICANT CHANGE FROM PRIOR EXAM: Significant change if liver stiffness measurement is 10% or greater from prior exam. OTHER CONSIDERATIONS: The stage of liver fibrosis may be overestimated in the setting of acute hepatitis, liver inflammation, elevated liver function tests, hepatic vascular congestion, obstructive cholestasis, non-fasting state, and infiltrative diseases such as amyloidosis and lymphoma. In some patients with NAFLD, the liver stiffness thresholds for compensated advanced chronic liver disease may be lower. In causes other than viral hepatitis and NAFLD, liver stiffness thresholds are not well established.
[2023-05-14 09:21] LABS: MANUAL DIFF FLAG NO
[2023-05-14 09:57] LABS: Basophils Percent Auto 0.4 % (0-2); Eosinophils Absolute Auto 0.1 X10*3/uL (0.0-0.4); Eosinophils Percent Auto 1.1 % (0-4); Hematocrit 41.2 % (37.0-47.0); Hemoglobin 12.9 g/dl (12.0-16.0); Imm Gran Abs Auto 0.01 X10*3/uL (0.00-0.03); Imm Gran Pct Auto 0.2 % (0.0-0.4); Lymphocytes Absolute Auto 1.3 X10*3/uL (1.2-4.9); Mean Corpuscular HGB Conc 31.3 g/dl (31.0-35.0); Mean Corpuscular Hemoglobin 26.9 pg (27.0-33.0); Mean Corpuscular Volume 85.8 fL (80.0-98.0); Mean Platelet Volume 8.7 fL (9.4-12.3); Monocytes Absolute Auto 0.4 X10*3/uL (0.1-1.2); Monocytes Percent Auto 7.8 % (2-11); Neutrophils Absolute Auto 3.8 x10*3/uL (2.0-8.3); Neutrophils Percent Auto 67.5 % (45-73); Platelet Count 361 X10*3/uL (160-400); Red Cell Distribution Width 13.5 % (11.0-16.0); White Blood Count 5.6 X10*3/uL (4.8-10.8)
[2023-05-14 10:45] LABS: Alanine Aminotransferase 27 U/L (0-31); Albumin Level 4.4 g/dL (3.5-5.0); Alkaline Phosphatase 39 U/L (39-117); Anion Gap 13 (12-20); Aspartate Amino Transferase 19 U/L (5-31); Bilirubin Total 0.4 mg/dL (0.0-1.0); Blood Urea Nitrogen 18 mg/dL (9-16); Calcium 9.6 mg/dL (8.4-10.2); Carbon Dioxide 23 mmol/L (22-29); Chloride 108 mmol/L (96-108); Cholesterol 178 mg/dL (<200); Estimated Glomerular Filt Rate > 60; Glucose Fasting 84 mg/dL (60-99); HDL Cholesterol 48 mg/dL (>40); LDL Cholesterol Calculated 113 mg/dL (<100); Potassium 4.2 mmol/L (3.3-5.1); Sodium 140 mmol/L (135-145); Total Protein 7.3 g/dL (6.5-8.0); Triglycerides 89 mg/dL (<150)
[2023-05-14 11:02] LABS: TSH reflex Free T4 0.92 uIU/mL (0.32-4.0)
[2023-05-14 11:11] LABS: Appearance Urine Clear; Color Urine Yellow; Glucose Urine UA Negative (Negative); Leukocyte Esterase Urine Negative (Negative); Nitrite Urine Negative (Negative); PH 5.5 (5.0-9.0); Specific Gravity - Urine >= 1.030 (1.005-1.025); Urine Blood Negative (Negative); Urine Ketones Negative (Negative); Urine Protein Negative (Neg-Trace)
[2023-05-16 16:09] LABS: EBV DNA PCR Not Detected (Not Detected); EBV Source Whole Blood
[2023-05-16 17:13] LABS: TS Negative Control Passed; TS Panel A 0; TS Panel B 0; TS Positive Control Passed; TSpotTB Negative (Negative)
[2023-05-17 16:33] LABS: CMV DNA PCR Qn Source BLOOD; CMV DNA Qn PCR NOT DETECTED Log IU/mL (NOT DETECTED); CMV DNA Qn Real Time PCR NOT DETECTED (NOT DETECTED)
== END 2023-05-14 08:28 | disposition home or self-care (01) ==
LOC: HO.US 08:27
PROVIDERS: Absent Provider Family Medicine; PCP Family Medicine; Visit Provider Physician Assistant
DX: Z01.818 Encounter for other preprocedural examination (principal); Z11.1 Encounter for screening for respiratory tuberculosis; E66.01 Morbid (severe) obesity due to excess calories; K21.9 Gastro-esophageal reflux disease without esophagitis; R06.02 Shortness of breath; R61 Generalized hyperhidrosis; Z85.72 Personal history of non-Hodgkin lymphomas
CPT/HCPCS: 36415; 76705; 76981; 80053; 80061; 81003; 84443; 85025; 86481; 87497; 87798

== ENCOUNTER 2023-05-14 11:55 | Outpatient (AMB) | payer OTHER, SELFPAY ==
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
== END 2023-05-14 12:04 | disposition home or self-care (01) ==
LOC: HO.HBST 11:55
PROVIDERS: PCP Family Medicine; Visit Provider Counselor Mental Health
DX: F41.8 Other specified anxiety disorders (principal); E66.01 Morbid (severe) obesity due to excess calories
CPT/HCPCS: 90791

== ENCOUNTER 2023-05-20 11:03 | Outpatient (AMB) | payer OTHER, SELFPAY ==
--- NOTE | 2023-05-20 11:05 | MHC.OFFVISWM ---
Intake VS Expanded 05/20/23 11:14 BP 153/73 H Blood Pressure Location Rt brachial Blood Pressure Position Sitting Pulse 79 Pulse Source Pulse Oximeter Temp 96.9 F Temperature Source Tympanic Pulse Oximetry 100 Oxygen Delivery Method Room Air Height 4 ft 9.5 in Weight 228 lb 9.6 oz BMI 48.6 Body Fat % 49.8 Body Fat Mass 113.8 Fat Free Mass 114.6 Visceral Fat Rating 15.0 Body Water % 36.1 Body Water Mass 82.4 Muscle Mass/Score 109.0 Basal Metabolic Rate/Score 1,683 Intake Visit Reasons: (OV) F/U SWL Allergies No Known Allergies [No Known Allergies*] Allergy (Verified 05/01/23 10:00) HPI HPI Comments History of Present Illness Details This is the patients second appt for SWL. Starting weight was 237.8 lbs on 04/12/23. TBWL is 9.2 lbs or 3.9 % TBWL. Meal plan: 8am - shake with coffee, Premier (will now use powder) 10:30 am - bar with yogurt and fruit 3:30 - shake 7pm - protein 4 oz, 6 oz vegetables 9pm- has whole or part bar as needed. Exercise plan:LS 2 mile did once. Walks with her kids 1.5 miles in 45 minutes - Pre op work up completed as follows: SWL classes - 01/03 appts -May 29 appts - follow up on 06/03 H pylori - negative Labs - still missing hgb A1C and vitamin labs CXR - negative ECG -Normal sinus rhythm Nonspecific T wave abnormality Abnormal ECG When compared with ECG of 26-MAY-2016 12:19, No significant change was found Stress test 06/17 CHO 06/06 ad SS ordered by PCP on 06/06 ULS - borderline hepatomegaly - 17 cms and 8.4 cms UGI - 07/03 Contraception- not sexually active, but has appt in June [facility] Medical History (Updated 05/03/23 @ 13:37 by PHILIP MaxC) delivery delivered Mitral valve prolapse Heart murmur Cancer Surgical History Hx of section History of appendectomy History of biopsy Social History Household Members Other:: single 2 kids Housing: Apartment Alcohol intake: never Patient Tobacco Use Status: Never used Tobacco e-Cigarette/Vaping Use: Never Used Second Hand Smoke Exposure: No service: No 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al status: employed 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: [employer]- OA/ rt hand Cognitive needs: No Hearing needs: No Vision needs: No Assessment & Plan Assessment & Plan (1) Morbid obesity: Code(s): E66.01 - Morbid (severe) obesity due to excess calories Plan: Good start with 3.9 % TBWL. Has an adequate meal plan - have changed the hours to be 3-4 hours apart. One MR at atime and fruti with dinner - dinner in forkfuls 8 and 12 per meal. Change to Premeir powder for shakes. Exercise - LS 2-3 miles 4d/ week a=- will text me calories burned tomorrow. Continue walks with children. All upcoming appts discussed, next apt wtih me in in 3 weeks. Patient is morbidly obese and is not considered stable at this time. I spent 30 minutes in total with patient reviewing/updating records, examining the patient and counseling the patient on weight management as detailed above. (2) Abnormal ECG: Code(s): R94.31 - Abnormal electrocardiogram [ECG] [EKG] (3) Heart murmur: Code(s): R01.1 - Cardiac murmur, unspecified (4) Mitral valve prolapse: Code(s): I34.1 - Nonrheumatic mitral (valve) prolapse Orders: Orders C Reactive Protein Today E66.01 - Morbid (severe) obesity due to excess calories, Z01.818 - Encounter for other preprocedural examination Vitamin A Today E66.01 - Morbid (severe) obesity due to excess calories, Z01.818 - Encounter for other preprocedural examination PTHI Today E66.01 - Morbid (severe) obesity due to excess calories, Z01.818 - Encounter for other preprocedural examination Vitamin D 25-OH Total Today E66.01 - Morbid (severe) obesity due to excess calories, Z01.818 - Encounter for other preprocedural examination Hemoglobin A1c Today E66.01 - Morbid (severe) obesity due to excess calories, Z01.818 - Encounter for other preprocedural examination Vitamin B12 and Folate Today E66.01 - Morbid (severe) obesity due to excess calories, Z01.818 - Encounter for other preprocedural examination Vitamin B1 Today E66.01 - Morbid (severe) obesity due to excess calories, Z01.818 - Encounter for other preprocedural examination Zinc Today E66.01 - Morbid (severe) obesity due to excess calories, Z01.818 - Encounter for other preprocedural examination Coding Level of Care Code Est Pt Level 4 (07087) Diagnoses Morbid obesity E66.01 Abnormal ECG R94.31 Heart murmur R01.1 Mitral valve prolapse I34.1
[2023-05-20 11:14] VITALS: BP 153/73; PULSE 79; TEMP 36.1; O2SAT 100; BMI 48.6
== END 2023-05-20 11:39 | disposition home or self-care (01) ==
PROVIDERS: PCP Family Medicine; Visit Provider Physician Assistant
DX: E66.01 Morbid (severe) obesity due to excess calories (principal); Z68.42 Body mass index [BMI] 45.0-49.9, adult; R01.1 Cardiac murmur, unspecified; I34.1 Nonrheumatic mitral (valve) prolapse
CPT/HCPCS: 99214

== ENCOUNTER → 2023-05-20 11:03 | Outpatient (BNVA) | payer OTHER, SELFPAY | PROVIDERS: PCP Family Medicine; Visit Provider Physician Assistant | DX: E66.01 Morbid (severe) obesity due to excess calories (principal); R94.31 Abnormal electrocardiogram [ECG] [EKG]; R01.1 Cardiac murmur, unspecified; I34.1 Nonrheumatic mitral (valve) prolapse; Z68.42 Body mass index [BMI] 45.0-49.9, adult | CPT/HCPCS: 99212 ==

== ENCOUNTER 2023-05-29 10:32 | Outpatient (AMB) | payer OTHER, SELFPAY ==
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
== END 2023-05-29 11:18 | disposition home or self-care (01) ==
PROVIDERS: PCP Family Medicine; Visit Provider Counselor Mental Health
DX: F41.8 Other specified anxiety disorders (principal); E66.01 Morbid (severe) obesity due to excess calories
CPT/HCPCS: 90834

== ENCOUNTER → 2023-05-29 10:32 | Outpatient (BNVA) | payer OTHER, SELFPAY | PROVIDERS: PCP Family Medicine; Visit Provider Counselor Mental Health ==

== ENCOUNTER → 2023-06-03 10:32 | Outpatient (BNVA) | payer OTHER, SELFPAY | PROVIDERS: PCP Family Medicine; Visit Provider Dietitian, Registered ==

== ENCOUNTER 2023-06-05 15:57 | Outpatient (REF) | payer OTHER, SELFPAY ==
--- NOTE | ~2023-06-05 | MR_ITS ---
EXAMINATION: MR LUMBAR SPINE WITHOUT AND WITH CONTRAST CLINICAL INFORMATION: Evaluate for metastatic disease, history of lymphoma COMPARISON: Lumbar radiographs 03/21/2023 TECHNIQUE: MRI of the lumbar spine was obtained using routine sequences before and after intravenous administration of 10 mL Gadavist. FINDINGS: Minimal lower lumbar levocurvature. Preserved lumbar lordosis. Trace retrolisthesis at L4-L5 and L5-S1.. Vertebral body heights are maintained. There is no suspicious enhancing osseous lesion. Disc desiccation at L4-L5 and L5-S1 with preserved disc height. No disc bulges or herniations at any level. The facet joints are normal. No spinal canal or neural foraminal stenosis. The conus medullaris terminates at the level of L1-L2. The distal spinal cord and cauda equina nerve roots appear normal. No abnormal intramedullary or leptomeningeal enhancement.. Engorgement of the epidural venous plexus within the ventral spinal canal at L5-S1. Enhancing annular fissure in the right central zone at L4-L5 with linear extension of enhancement ventrally across the nucleus pulposis. No significant abnormalities of the paraspinal musculature. Limited evaluation of the intra-abdominal structures without significant abnormalities. The abdominal aorta is of normal contour and caliber. MR/MR lumbar spine wo/w con IMPRESSION: 1. No evidence of osseous metastatic or epidural disease. 2. No spinal canal or neural foraminal stenosis at any level. 3. Enhancing annular fissure in the right central zone at L4-L5 with linear extension of enhancement ventrally across the nucleus pulposis.
[2023-06-05] MEDS: gadobutroL 10 ML VIAL IVPUSH (16:54)
== END 2023-06-05 15:58 | disposition home or self-care (01) ==
LOC: HO.MRI 15:57
PROVIDERS: PCP Family Medicine; Visit Provider Physical Medicine & Rehabilitation
DX: M51.36 Other intervertebral disc degeneration, lumbar region (principal); M53.3 Sacrococcygeal disorders, not elsewhere classified; Z85.72 Personal history of non-Hodgkin lymphomas
CPT/HCPCS: 72158; A9585

== ENCOUNTER 2023-06-06 08:04 | Outpatient (AMB) | payer OTHER, SELFPAY ==
--- NOTE | 2023-06-06 08:06 | A.OFFVIS_ITS ---
Intake Vital Signs 06/06/23 08:11 Height 4 ft 9 in Weight 228 lb BMI 49.3 BP 100/70 Blood Pressure Location Rt brachial Position Sitting Intake Visit Reasons: I-VEHICLE UPHOLSTERER: Sleep Apnea/Confirmed Intake Note: Patient presents for sleep apnea. patient states I havent been diagnosed with sleep apnea this is a consult for that. Allergies No Known Allergies [No Known Allergies*] Allergy (Verified 06/06/23 08:10) HPI HPI Comments History of Present Illness Details 28 y/o female patient presents for new i n-person visit for sleep consultation. Pt reports loud snoring, it has been progressed over the last couple of years. Pt having frequent arousals, and non refreshing sleep with daytime tiredness. She wakes up 2-3 time at night. She also reports REM behavior, talking loud, and legs and arm movement, it wakes up her sometimes. Sleep questionnaire: Have you ever been diagnosed with a sleep disorder? No. Have you ever had a sleep study in the past? No. Have you ever been treated for a sleep disorder? No. Do you take medications for a sleep disorder? No. Do you snore? Yes. Do you wake up gasping at night? No. Do you have episodes of apneas? No. If yes, are they witnessed? No. Do you have episodes of nocturnal chest pain or dyspnea? No. Do you have difficulty initiating sleep? No. Do you have difficulty maintaining sleep? Yes. Do you wake up tired? Yes. Do you have headaches upon awakening? Yes. Do you wake up with dry mouth or throat? Yes. Do you have GERD? Yes. Do you have nocturia? Yes, sometimes. Do you have nocturnal leg cramps? Yes, used to, but not lately. Do you have symptoms of restless legs? No. Do you act out your dreams? Yes, kicking, and talking loudly. Sleep hygiene questionnaire: What is your usual sleep routine? Usual bedtime is at 10 pm; Usual wake up time is at 7 pm. Do you take naps? No. Is your sleep environment cool, dark, and quiet? Yes. Do you exercise? Yes, couple of times a week. Do you take caffeine or other stimulants? Coffee in the morning. Do you use electronics in bed? Yes. What is your work schedule? 8:30 am to 5 pm. Hypersomnolence questionnaire: Do you have daytime tiredness or fatigue? Yes. Do you easily fall asleep when inactive? No. Have you ever had episodes of sudden weakness? No. Have you ever had episodes of sudden weakness associated with strong emotions? No. [facility] Medical History (Updated 06/06/23 @ 08:42 by Yves Junior CNP) delivery delivered Mitral valve prolapse Heart murmur Cancer Surgical History Hx of section History of appendectomy History of biopsy Family History (Updated 06/06/23 @ 08:11 by KAYDEN Marroquin) Maternal Grandfather Diabetes Maternal Grandmother Diabetes Social History Household Members Other:: single 2 kids Housing: Apartment Alcohol intake: never Patient Tobacco Use Status: Never used Tobacco e-Cigarette/Vaping Use: Never Used Second Hand Smoke Exposure: No service: No 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al status: employed 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: [employer]- OA/ rt hand Cognitive needs: No Hearing needs: No Vision needs: No Review of Systems ENT Reports Normal hearing present Neuro Reports Normal hearing present Physical Exam Vital Signs: Last Vital Signs BP 100/70 06/06/23 08:11 BMI result Body Mass Index 49.3 Const General: cooperative Nutritional Appearance: obese Orientation/consciousness: patient oriented x3 HEENT Throat: Yes other (mallampati grade 4) Neck Neck: Yes normal visual inspection and Yes full ROM Resp Effort & Inspection: normal respiratory effort and able to speak in complete sentences Neuro General: patient oriented x3, gait normal and moves all extremities Cranial nerves: Yes Bilaterally intact EOM present, Yes Normal facial strength present, Yes Midline tongue present, Yes Symmetric palate elevation present, Yes Normal hearing present, Yes Ability to bilaterally rotate head present and Yes Ability to bilaterally elevate shoulders present Cognition (Neuro): normal cognition Gait exam (Neuro): Normal gait present Motor exam (neuro): 5/5 motor strength present throughout, Pronator motor function not present and no tremor noted Psych Appearance: grossly normal Mental Status: mental status grossly normal Speech and movement: Normal speech and movement present Affect: normal affect Attitude: cooperative Assessment & Plan Assessment & Plan (1) REM behavioral disorder: Code(s): G47.52 - REM sleep behavior disorder (2) Daytime sleepiness: Code(s): R40.0 - Somnolence (3) Morbid obesity: Code(s): E66.01 - Morbid (severe) obesity due to excess calories (4) Sleep apnea: Code(s): G47.30 - Sleep apnea, unspecified Plan Pt is advised to undergo in lab sleep study to assess for sleep apnea and REM behavior disorder. Will f/u with pt after study to discuss results and appropriate treatment options. Pt may try melatonin 3 mg qHS to manage REM behavior. Pt to call with any worsening concerns or questions. Orders: Orders RT PSG in-lab sleep study Today E66.01 - Morbid (severe) obesity due to excess calories, G47.30 - Sleep apnea, unspecified, G47.52 - REM sleep behavior d isorder, I34.1 - Nonrheumatic mitral (valve) prolapse, R01.1 - Cardiac murmur, unspecified, R40.0 - Somnolence, R94.31 - Abnormal electrocardiogram [ECG] [EKG] Coding Level of Care Code New Pt Level 3 (99473) Diagnoses REM behavioral disorder G47.52 Daytime sleepiness R40.0 Morbid obesity E66.01 Sleep apnea G47.30
[2023-06-06 08:11] VITALS: BP 100/70; BMI 49.3
== END 2023-06-06 08:46 | disposition home or self-care (01) ==
PROVIDERS: PCP Family Medicine; Visit Provider Nurse Practitioner Family
DX: G47.52 REM sleep behavior disorder (principal); R40.0 Somnolence; E66.01 Morbid (severe) obesity due to excess calories; G47.30 Sleep apnea, unspecified
CPT/HCPCS: 99203

== ENCOUNTER → 2023-06-06 09:53 | Outpatient (REF) | payer OTHER, SELFPAY ==
--- NOTE | 2023-06-06 09:55 | CA_ITS ---
Transthoracic Echocardiogram Patient (Last, First, Middle): Georgina Peterson, Gender: Female Date of : 1995 Age: 28 Procedure Date: 06/06/2023 Procedure Type: Transthoracic Echocardiogram Location: OP Height: 147.32 cm Weight: 104.33 kg BSA: 1.93 m2 Heart Rate: bpm BP: 100 / 70 mmHg Audiology Technician: ALFONZO Referring MD: Mily Mcfarland PA-C Ship'S Surveyor: Santos Lopez MD Symptoms: R94.31 - Abnormal electrocardiogram [ECG] [EKG] Study Quality: Technically Difficult ECG Rhythm: Sinus Conclusions: - Technically limited study but overall appears to be within normal limits Findings Procedure Information Contrast agent, definity, is being given per protocol without apparent complications. Left Ventricle Normal left ventricular size, thickness, and systolic function. The visually estimated ejection fraction is between 55-60%. Spectral Doppler is indicative of a normal filling pattern. Right Ventricle Normal right ventricular cavity size. Atria The left atrium is normal in size. Interatrial shunt cannot be excluded. The right atrium was not well visualized. Aortic Valve The aortic valve was not well visualized. There is no aortic valve stenosis. There is no aortic valve regurgitation. Mitral Valve Likely normal mitral valve structure and function. There is no mitral valve regurgitation. There is no mitral valve stenosis. Pulmonic Valve The pulmonic valve was not well visualized. Tricuspid Valve The tricuspid valve was not well visualized. Tricuspid regurgitation envelope is inadequate for calculation of right ventricular systolic pressure. Normal right atrial pressure. Great Vessels All visible segments of the aorta are normal in size. The pulmonary artery was not well visualized. Venous The inferior vena cava is normal in size and collapses greater than 50% with inspiration. Pericardium/Pleural There is no evidence of pericardial effusion. Measurements 2D Linear Measurements IVSd: 0.86 0.6-0.9/0.6-1.0 cm LVIDd: 4.43 3.9-5.3/4.2-5.9 cm LVIDd Index: 2.30 2.4-3.2/2.2-3.1 cm/m2 LVIDs: 3.12 2.0-3.6 cm LVPWd: 0.86 0.7-1.1 cm LA Diam: 3.60 2.7-3.8/3.0-4.0 cm LAIDs Index: 1.87 1.5-2.3 cm/m2 LV Mass: 150.55 67-162/88-224 g LV Mass Index: 78.01 43-95/49-115 g/m2 LVOT Diam: 1.80 3.0+(-)1.3 cm 2D Systolic Function EF 4C: 57.80 >55% EF 2C: 55.20 >55% EF BiP: 55.10 >55% Mitral Valve MV Pk E: 1.11 MV PK A: 0.54 MV Decel Time: 238.00 E/A: 2.00 E'Lateral: 12.70 E'Medial: 10.60 E/E' Med: 10.50 E/E' Lat: 8.70 PHT: 70.00 MVA PHT: 3.14 Decel [place]: 4.67 Aortic Valve AoV Pk Scotty: 1.36 AoV Mn Scotty: 0.93 AoV VTI: 0.30 AoV Pk Grad: 7.00 Aov Mn Grad: 4.00 JAYDEN Cont.VTI: 1.97 LVOT LVOT Pk Scotty: 1.03 LVOT Mn Scotty: 0.66 LVOT VTI: 0.24 LVOT Pk Grad: 4.00 LVOT Mn Grad: 2.00 LVOT Diam: 1.80 LVOT Area: 2.54 Diastolic Function MV Pk E: 1.11 MV Pk A: 0.54 E/A: 2.00 E'Medial: 10.60 E/E' Med: 10.50 E' Laterial: 12.70 E/E' Lat: 8.70 Right Ventricle TAPSE (mm): 22.60 TVS' Scotty: 11.40 Tricuspid Valve RA Press: 3.00 Great Vessels Aorta Sinus of Valsalva: 2.61 2.0-3.5 cm Ao Asc: 2.20 2.1-3.4 cm Updated in Other Vendor System with Status of Final Santos Lopez MD electronically signed on 06/07/2023 4:32:34 PM with status of Final
== END ==
LOC: HO.CARD 09:53
PROVIDERS: PCP Family Medicine; Referring Provider Internal Medicine Hematology; Visit Provider Surgery
DX: R94.31 Abnormal electrocardiogram [ECG] [EKG] (principal); R01.1 Cardiac murmur, unspecified; I34.1 Nonrheumatic mitral (valve) prolapse; G47.30 Sleep apnea, unspecified
CPT/HCPCS: 93306; 99202; Q9957

== ENCOUNTER → 2023-06-06 09:55 | Outpatient (BNV) | payer OTHER, SELFPAY | PROVIDERS: PCP Family Medicine; Referring Provider Internal Medicine Hematology; Visit Provider Internal Medicine Cardiovascular Disease | DX: R94.31 Abnormal electrocardiogram [ECG] [EKG] (principal) | CPT/HCPCS: 93306 ==

== ENCOUNTER 2023-06-10 15:51 | Outpatient (AMB) | payer OTHER, SELFPAY ==
--- NOTE | 2023-06-10 15:02 | MHC.OFFVISWM ---
Intake VS Expanded 06/10/23 15:58 BP 177/70 H Blood Pressure Location Rt brachial Blood Pressure Position Sitting Pulse 81 Pulse Source Pulse Oximeter Temp 97.6 F Temperature Source Tympanic Pulse Oximetry 100 Oxygen Delivery Method Room Air Height 4 ft 9.5 in Weight 228 lb 3.2 oz BMI 48.5 Body Fat % 49.3 Body Fat Mass 112.4 Fat Free Mass 115.8 Visceral Fat Rating 15.0 Body Water % 36.5 Body Water Mass 83.4 Muscle Mass/Score 109.8 Basal Metabolic Rate/Score 1,694 Intake Visit Reasons: (OV) F/U SWL Allergies No Known Allergies [No Known Allergies*] Allergy (Verified 06/10/23 16:01) HPI HPI Comments History of Present Illness Details SWL follow up, [employer] weight of 237.8 lbs, TBWL is 9.6 lbs or 4%, no weight loss over last 3 weeks. Patient states that she has forgets to eat, along with forgetting many other things. Has not sent me weekly weights either. She states her plan is: 8:30 am - whey protein powder with UAM - doesn't forget this one 11:30 - lunch protein bar or 2 hb eggs or 4oz plain citizen of [place] yogurt 3:30 - second shake 7 pm - dinner of 4 oz protien (chicken, ground beef mostly), 6 oz vegetables - trying to use forkfuls Exercise - none for 3 weeks. Likes the LS 2-3 miles 4d/ week Pre op work up completed as follows: [facility] classes - 01/03 appts -May 29, follow up 06/12 RD appts - follow up on 06/03 - did not have appt needs to be rescheduled H pylori - negative Labs - still missing hgb A1C and vitamin labs - will get her blood drawn CXR - negative ECG -Normal sinus rhythm Nonspecific T wave abnormality Abnormal ECG When compared with ECG of 26-MAY-2016 12:19, No significant change was found ECHO on 06/06 - no abnormalities Stress test on 06/17 Sleep medicine appt ordered by PCP, seen on 06/06 - will have in lab sleep study, waiting for appt date ULS - borderline hepatomegaly - 17 cms and 8.4 cms UGI - 07/03 Contraception- not sexually active, but has appt in June [facility] Medical History (Updated 06/06/23 @ 08:42 by Yves Junior CNP) delivery delivered Mitral valve prolapse Heart murmur Cancer Surgical History Hx of section History of appendectomy History of biopsy Family History Maternal Grandfather Diabetes Maternal Grandmother Diabetes Social History Household Members Other:: single 2 kids Housing: Apartment Alcohol intake: never Patient Tobacco Use Status: Never used Tobacco e-Cigarette/Vaping Use: Never Used Second Hand Smoke Exposure: No service: No 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al status: employed 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: [employer]- OA/ rt hand Cognitive needs: No Hearing needs: No Vision needs: No Assessment & Plan Assessment & Plan (1) Morbid obesity: Code(s): E66.01 - Morbid (severe) obesity due to excess calories Plan: No recent weight loss due to forgetting to eat regularly and not exercising. We discussed some ways to help her organize ehr time and she will follow up with Daxa and her partner. 1. Set alarms on phone for meals 2. Make weekly calendar for events and put up in a visible place in her home 3. Organize the week with her partner lashaun of time 4. keep lunch at work simple - bars already in her desk drawers. Exercise - Sa, Guidry, T, TH - as above. REstart LS videos Will get her labs drawn this week all upcomiing appts discussed with her- will reschedule with Radha. Next appt with me in 3 weeks. Patient is morbidly obese and is not considered stable at this time. I spent 26 minutes in total with patient reviewing/updating records, examining the patient and counseling the patient on weight management as detailed above. (2) Sleep apnea: Code(s): G47.30 - Sleep apnea, unspecified (3) Abnormal ECG: Code(s): R94.31 - Abnormal electrocardiogram [ECG] [EKG] Coding Level of Care Code Est Pt Level 4 (96934) Diagnoses Morbid obesity E66.01 Sleep apnea G47.30 Abnormal ECG R94.31
[2023-06-10 15:58] VITALS: BP 177/70; PULSE 81; TEMP 36.4; O2SAT 100; BMI 48.5
== END 2023-06-10 16:24 | disposition home or self-care (01) ==
PROVIDERS: PCP Family Medicine; Visit Provider Physician Assistant
DX: E66.01 Morbid (severe) obesity due to excess calories (principal); Z68.42 Body mass index [BMI] 45.0-49.9, adult; G47.30 Sleep apnea, unspecified; R94.31 Abnormal electrocardiogram [ECG] [EKG]
CPT/HCPCS: 99213

== ENCOUNTER → 2023-06-10 15:51 | Outpatient (BNVA) | payer OTHER, SELFPAY | PROVIDERS: PCP Family Medicine; Visit Provider Physician Assistant | DX: E66.01 Morbid (severe) obesity due to excess calories (principal); G47.30 Sleep apnea, unspecified; R94.31 Abnormal electrocardiogram [ECG] [EKG]; Z68.42 Body mass index [BMI] 45.0-49.9, adult | CPT/HCPCS: 99212 ==

== ENCOUNTER 2023-06-12 13:03 | Outpatient (AMB) | payer OTHER, SELFPAY ==
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
== END 2023-07-17 15:35 | disposition home or self-care (01) ==
PROVIDERS: PCP Family Medicine; Visit Provider Counselor Mental Health
DX: F41.8 Other specified anxiety disorders (principal); E66.01 Morbid (severe) obesity due to excess calories
CPT/HCPCS: 90832

== ENCOUNTER → 2023-06-12 13:03 | Outpatient (BNVA) | payer OTHER, SELFPAY | PROVIDERS: PCP Family Medicine; Visit Provider Counselor Mental Health ==

== ENCOUNTER 2023-07-03 08:23 | Outpatient (REF) | payer OTHER, SELFPAY | END 2023-07-03 08:24 | disposition home or self-care (01) | LOC: HO.SH 08:23 | PROVIDERS: Visit Provider Physician Assistant Medical | DX: Z01.118 Encounter for examination of ears and hearing with other abnormal findings (principal); H93.293 Other abnormal auditory perceptions, bilateral | CPT/HCPCS: 92557; 92567; 92588; 92700 ==

== ENCOUNTER → 2023-10-17 20:30 | Outpatient (REF) | payer OTHER, SELFPAY | LOC: HO.SL 20:30 | PROVIDERS: Visit Provider Nurse Practitioner Family | DX: G47.33 Obstructive sleep apnea (adult) (pediatric) (principal); G47.52 REM sleep behavior disorder; R40.0 Somnolence; E66.01 Morbid (severe) obesity due to excess calories | CPT/HCPCS: 95810 ==

== ENCOUNTER → 2023-10-17 22:38 | Outpatient (BNV) | payer OTHER, SELFPAY | PROVIDERS: Visit Provider Psychiatry & Neurology Neurology | DX: G47.33 Obstructive sleep apnea (adult) (pediatric) (principal) | CPT/HCPCS: 95810 ==

== ENCOUNTER 2024-03-12 12:57 | Outpatient (AMB) | payer OTHER, SELFPAY ==
--- NOTE | 2024-03-12 13:09 | MHC.PC.OV ---
Vital Signs 03/12/24 13:17 Height 4 ft 9 in Weight 221 lb 8 oz BMI 47.9 BP 100/60 Blood Pressure Location Lt brachial Position Sitting Respiration 16 Pulse 77 Pulse Source Pulse Oximeter Temp 98 F Temp Source Tympanic Pulse Oximetry (%) 98 Oxygen Delivery Method Room Air Intake Visit Reasons: Extended exam with f/u labs and health maint. Intake Note: CPE Allergies No Known Allergies [No Known Allergies*] Allergy (Verified 03/12/24 13:11) Tobacco use date assessed: 03/12/24 Dental Screening Dental Screen Date: 03/12/24 Did you have a dental visit in the last 12 months?: Yes Did you have a dental problem in the last 6 months where you did not have access to dental care?: No Was dental information given to patient?: Patient has dentist HPI Extended exam with f/u labs and health maint. HPI Details 29 y/o female presents for an extended exam with f/u labs and health maintenance. No recent labs to review. Still followed by [facility] for hx of lymphoma. Had not been able to get PET scan as she had found out she ws . She notes she had done a MRI and CT and states work up was fine. HPI Comments History of Present Illness Details Documentation assistance for Jose Fox MD, was provided by Esdras Nicholson, Industrial Technology Teacher on 03/12/2024 at 1:30 PM EST. I, Dr. Fox, have read, observed, and verified documentation. [facility] Medical History (Updated 06/06/23 @ 08:42 by Yves Junior CNP) delivery delivered Mitral valve prolapse Heart murmur Cancer Surgical History Hx of section History of appendectomy History of biopsy Family History Maternal Grandfather Diabetes Maternal Grandmother Diabetes Social History Household Members Other:: single 2 kids Housing: Apartment Alcohol intake: never Patient Tobacco Use Status: Never used Tobacco e-Cigarette/Vaping Use: Never Used Second Hand Smoke Exposure: No service: No 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al status: employed 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: [employer]- OA/ rt hand Cognitive needs: No Hearing needs: No Vision needs: No Questionnaire PHQ-9 Over the last 2 weeks, how often have you been bothered by any of the following problems? 1. Little interest or pleasure in doing things: not at all 2. Feeling down, depressed, or hopeless: not at all 3. Trouble falling or staying asleep, or sleeping too much: not at all 4. Feeling tired or having little energy: not at all 5. Poor appetite or overeating: not at all 6. Feeling bad about yourself - or that you are a failure or have let yourself or your family down: not at all 7. Trouble concentrating on things, such as reading the newspaper or watching television: not at all 8. Moving or speaking so slowly that other people could have noticed. Or the opposite - being so fidgety or restless that you have been moving around a lot more than usual: not at all 9. Thoughts that you would be better off or of hurting yourself in some way: not at all Total score: 0 Depression Screening Interpretation: Negative Depression Screening Done: Yes 75395 - PHQ-9 Billing: Yes Source: Developed by Drs. Aston Carlos, Danica Carreno, Remigio Edwards and colleagues, with an educational neli from [employer]. Thrive Questionnaire Date Thrive assessed: 03/12/24 I am a: Patient What is your living situation today?: I have a steady place to live Within the past 12 months, did the food you bought not last and you didn't have the money to get more?: Never true Within the past 12 months, did you worry whether your food would run out before you got money to buy more?: Never true Do you have trouble paying for medicines?: No Do you have trouble getting transportation to medical appointments?: No Do you have trouble paying your heating and electricity bill?: No Do you have trouble taking care of your child, family member or friend?: No Do you have trouble with day-to-day activities such as bathing, preparing meals, shopping, managing finances, etc.?: No Are you currently unemployed and looking for a job?: No Are you interested in more education?: No Please select the resources that you would like help with: None Currently or been in a relationship where the following occur: No concerns reported THRIVE Score: 0 AUDIT C Alcohol Use Questionnaire (AUDIT-C) 1. How often do you have a drink containing alcohol?: Never 3. How often do you have six or more drinks on one occasion?: Never Total Score: 0 Score Reviewed/Action Taken: Yes ANGEL-7 AMB Questionnaire ANGEL-7 Date ANGEL - 7 assessed: 03/12/24 Feeling nervous, anxious, or on edge: 0 = Not at all Not being able to stop or control worryin = Not at all Worrying too much about different things: 1 = Several days Trouble relaxin = Not at all Being so restless that it is hard to sit still: 0 = Not at all Becoming easily annoyed or irritable: 0 = Not at all Feeling afraid as if something awful might happen: 1 = Several days Total ANGEL-7 score (0-4 normal; 5-9 mild; 10-14 moderate; 15-21 severe): 2 Source: Developed by Drs. Aston Carlos, Danica Carreno, Remigio Edwards and colleagues, with an educational neli from [employer]. ANGEL-7 Assessment Billing ANGEL-7 Assessment Tool: ANGEL-7 Assessment 18617 Review of Systems Const Denies chills, Denies fatigue, Denies fever(s), Denies headache(s) and Denies weakness Eyes Denies change in vision ENT Denies dizziness, Denies headache(s), Denies hearing loss, Denies nasal congestion, Denies sinus pain, Denies sinus pressure and Denies sore throat Card Denies chest pain, Denies lightheadedness, Denies dyspnea and Denies other (palpitations) Resp Denies cough, Denies dyspnea and Denies wheezing GI Denies abdominal pain, Denies melena, Denies hematochezia, Denies change in bowel habits, Denies dyspepsia and Denies nausea Denies hematuria and Denies dysuria Musc Denies abnormal gait, Denies myalgias, Denies arthralgias, Denies numbness and Denies tingling Skin/Breast Denies rash, Denies unusual bruising and Denies wounds Neuro Denies abnormal gait, Denies dizziness, Denies headache(s), Denies memory loss, Denies numbness, Denies Sensory deficit (Neuro), Denies tingling and Denies weakness Psych Denies anxiety, Denies depression and Denies memory loss Endo Denies cold intolerance, Denies fatigue, Denies heat intolerance, Denies polydipsia and Denies polyuria Jean-Paul/Lymph Denies easy bleeding and Denies easy bruising Aller/Immun Denies wheezing Physical exam (Primary Care) Vital Signs: Last Vital Signs Temp 98 F 03/12/24 13:17 Pulse 77 03/12/24 13:17 Resp 16 03/12/24 13:17 BP 100/60 03/12/24 13:17 Pulse Ox 98 03/12/24 13:17 Oxygen Delivery Method Room Air 03/12/24 13:17 BMI result Body Mass Index 47.9 Tobacco/Smoking Status: Tobacco use Status Tobacco use date assessed 03/12/24 03/12/24 13:20 Patient Tobacco Use Status Never used Tobacco 03/12/24 13:20 e-Cigarette/Vaping Use Never Used 03/12/24 13:20 PHQ-9: PHQ-9 Score PHQ-9: Total score 0 03/12/24 13:20 Depression Screening Interpretation: Negative Thrive Assessment: Date of Thrive Assessment Date Thrive assessed 03/12/24 03/12/24 13:20 Currently or been in a relationship where the following occur: No concerns reported Const General: no acute distress, well developed, alert and awake Nutritional Appearance: obese morbidly obese Orientation/consciousness: patient oriented x3 HENMT Head: Yes normocephalic and Yes atraumatic Ears: hearing grossly normal bilaterally and TM's normal bilaterally General nose exam: Normal external nose present and Normal nares present Mouth: Normal oral and palatal mucosa present and moist mucous membranes Teeth and gingiva: dentition normal Throat: Yes posterior oropharynx normal Eyes General: appearance normal, both eyes and all related structures Pupils: Equal, round and reactive pupils present and Pupil accommodation reflex normal EOM: EOMs intact bilaterally Neck Neck: Yes normal visual inspection, Yes no lymphadenopathy and Yes trachea midline Thyroid: Thyroid normal Carotids: no bruits Lymphatic: no lymphadenopathy noted Chest Chest palpation & inspection: normal inspection of the chest Resp Effort & Inspection: normal respiratory effort Auscultation: clear to auscultation bilaterally Cardio Rate: regular rate Rhythm: regular rhythm Heart sounds: S1 normal heart sound present, S2 normal heart sound present, no gallops, no murmurs and no rubs Bruits: no abdominal aortic bruits and no carotid bruits GI Palpation (GI): No Abdominal aortic bruit present, Soft to palpation, nontender, No hepatosplenomegaly present and No Rebound tenderness present Auscultation: normal bowel sounds General: Yes no CVA tenderness Back/Spine/Pelvis Back: no CVA tenderness Cervical Spine: cervical ROM normal and No Cervical spine tenderness Thoracic/Lumbar Spine: thoraco-lumbar ROM normal, No pain with thoraco-lumbar ROM, No thoracic spinal tenderness and No lumbar spinal tenderness Skin Lesions: no lesions Rashes: no rashes Trauma: no lacerations or abrasions Wounds: no wounds Nails: normal Neuro General: patient oriented x3 Cranial nerves: Yes Equal, round and reactive pupils present Cognition (Neuro): normal cognition Gait exam (Neuro): Normal gait present Motor exam (neuro): 5/5 motor strength present throughout Sensory Exam: No Sensory deficit (Neuro) Deep tendon reflexes (DTR's): Right patellar reflex intensity grade: 2+ and Left patellar reflex intensity grade: 2+ Extrem General: Yes normal to inspection and No edema Psych Appearance: grossly normal Affect: normal affect Attitude: cooperative Thought process: Normal thought process present Assessment and Plan Assessment & Plan (1) History of lymphoma: Code(s): Z85.72 - Personal history of non-Hodgkin lymphomas Plan: Followed?by?Hematology-Oncology?at [facility] Stable Low?index?of?suspicion?for?recurrence Follow-up?with?Hematology-Oncology?as?recommended (2) Screening for cervical cancer: Code(s): Z12.4 - Encounter for screening for malignant neoplasm of cervix Plan: Last?Pap?smear?less?than?3?years?ago?and?was?negative. Managed?by?[facility]?fence machine operator Follow-up?as?recommended (3) Adult general medical exam: Code(s): Z00.00 - Encounter for general adult medical examination without abnormal findings Plan: 29-year-old?female?presents?for?an?extended?exam Encouraged?healthy?diet?and?active?lifestyle?with?increased?exercise Coding Level of Care Code Est Pt Level 4 (74651) Diagnoses History of lymphoma Z85.72 Screening for cervical cancer Z12.4 Adult general medical exam Z00.00 Additional Codes ANGEL-7 Assessment Billing - ANGEL-7 Assessment Tool: ANGEL-7 Assessment [id number] ([id number])
[2024-03-12 13:17] VITALS: BP 100/60; PULSE 77; RESP 16; TEMP 36.6; O2SAT 98; BMI 47.9
== END 2024-03-12 13:40 | disposition home or self-care (01) ==
PROVIDERS: Visit Provider Family Medicine
DX: Z00.00 Encounter for general adult medical examination without abnormal findings (principal); Z85.72 Personal history of non-Hodgkin lymphomas
CPT/HCPCS: 99395

== ENCOUNTER 2024-03-17 09:30 | Outpatient (AMB) | payer OTHER, SELFPAY ==
--- NOTE | 2024-03-17 09:31 | MHC.OFFVIS ---
Vital Signs 03/17/24 09:34 Height 4 ft 9 in Weight 221 lb BMI 47.8 Intake Visit Reasons: Follow Up-CONF Intake Note: Patient presents for follow up. Allergies No Known Allergies [No Known Allergies*] Allergy (Verified 03/17/24 09:36) Medication List - Last Reconciled 03/17/24 by DOMINGO Franks medroxyprogesterone (Depo-Provera) 150 mg IM [id number] HPI Comments Details: 29-yr-old female presents for follow-up visit of sleep apnea. Pt is approx 7 wks - states uncomplicated d/t babby was breech. Since the last visit, pt underwent in-lab PSG (she was during the study), which showed very mild sleep apnea w/ periodic limb movements of sleep- AHI 5.1/hr w/ O2 yola 88%, PLMS 41.9/hr w/ PLMS Arousal Index of 6.4/hr. Overall she states she is sleeping better. Does still wake up frequently but is better able to fall back asleep. She is not using Melatonin. She does endorse restlessness- states it sooths her. Has always moved a lot at night. She does talk at night, states she has always talked in her sleep. She used to sleep walk as a child. Last Ferritin was in 40s. Has h/o anemia, lymphoma- in remission. She has started APAP, however it to0ok a while to get used to it and then really has not been using it as she is caring for her dtr. [facility] Medical History (Updated 03/17/24 @ 10:29 by DOMINGO Franks) Anemia delivery delivered Mitral valve prolapse Heart murmur Cancer Surgical History Hx of section History of appendectomy History of biopsy Family History Maternal Grandfather Diabetes Maternal Grandmother Diabetes Social History Household Members Other:: single 2 kids Housing: Apartment Alcohol intake: never Patient Tobacco Use Status: Never used Tobacco e-Cigarette/Vaping Use: Never Used Second Hand Smoke Exposure: No service: No 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al status: employed 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: [employer]- OA/ rt hand Cognitive needs: No Hearing needs: No Vision needs: No Review of Systems Const All systems reviewed & are unremarkable except as noted in HPI and below Physical Exam Vital Signs: BMI result Body Mass Index 47.8 Const General: no acute distress Orientation/consciousness: patient oriented x3 HEENT Other: Mallampati stage Resp Effort & Inspection: normal respiratory effort and able to speak in complete sentences Auscultation: clear to auscultation bilaterally Neuro General: patient oriented x3 Cognition (Neuro): normal cognition Motor exam (neuro): 5/5 motor strength present throughout Psych Appearance: grossly normal Mental Status: mental status grossly normal Speech and movement: Normal speech and movement present Affect: normal affect Attitude: cooperative Results Reviewed Results Reviewed: PAP compliance report- see HPI Assessment & Plan Assessment & Plan (1) Periodic limb movement sleep disorder: Code(s): G47.61 - Periodic limb movement disorder Category: Medical (2) Parasomnia: Code(s): G47.50 - Parasomnia, unspecified Category: Medical (3) Mild obstructive sleep apnea: Comment: 2023 In-lab PSH AHI 5.1/hr w/ O2 yola 88%- note pt was during sleep study Code(s): G47.33 - Obstructive sleep apnea (adult) (pediatric) Category: Medical Plan Reviewed in-lab PSG, labs- mild MELISSA, PLMS w/ frequent arousals, and ferritin < 50 (goal > 75 in RLS/PLMS dx). Pt may hold APAP, if this is not helping pt to sleep better. For PLMS- Start iron supplement w/ vit C. Monitor for constipation. Recheck ferritin, methylmalonic acid, homocysteine, as well as CBC, CMP, b12/folate as ordered by PCP. Orders: Orders Homocysteine Today D64.9 - Anemia, unspecified, G47.61 - Periodic limb movement disorder Methylmalonic Acid Today D64.9 - Anemia, unspecified, G47.61 - Periodic limb movement disorder Ferritin Today D64.9 - Anemia, unspecified, G47.61 - Periodic limb movement disorder IRON PROFILE Today D64.9 - Anemia, unspecified, G47.61 - Periodic limb movement disorder Medications: New ferrous gluconate 324 mg PO DAILY 30 days 30 tabs 4RF ascorbate calcium (vitamin C) take w/ ferrous gluconate 500 mg PO DAILY 30 days 30 tabs 4RF Coding Level of Care Code Est Pt Level 4 (31687) Diagnoses Periodic limb movement sleep disorder G47.61 Parasomnia G47.50 Mild obstructive sleep apnea G47.33
[2024-03-17 09:34] VITALS: BMI 47.8
== END 2024-03-17 10:21 | disposition home or self-care (01) ==
PROVIDERS: PCP Family Medicine; Visit Provider Nurse Practitioner Family
DX: G47.61 Periodic limb movement disorder (principal); G47.50 Parasomnia, unspecified; G47.33 Obstructive sleep apnea (adult) (pediatric)
CPT/HCPCS: 99214

== ENCOUNTER → 2024-03-17 09:30 | Outpatient (BNVA) | payer OTHER, SELFPAY | PROVIDERS: PCP Family Medicine; Visit Provider Nurse Practitioner Family | DX: G47.33 Obstructive sleep apnea (adult) (pediatric) (principal); G47.61 Periodic limb movement disorder; G47.50 Parasomnia, unspecified | CPT/HCPCS: 99212 ==

== ENCOUNTER 2024-04-08 12:34 | Outpatient (REF) | payer OTHER, SELFPAY ==
--- NOTE | ~2024-04-08 | XR_ITS ---
EXAMINATION: XR BILATERAL HIPS WITH AP PELVIS CLINICAL INFORMATION: Right hip pain. Left hip pain. COMPARISON: None available. TECHNIQUE: AP and frog-leg lateral views of each hip and an AP view of the pelvis. FINDINGS: No fracture. Hip joint spaces are well maintained. Alignment is anatomic. Sacroiliac joints and pubic symphysis are normal. No abnormal soft tissue calcifications. XR/XR hip RT min 2V IMPRESSION: Normal pelvis and hips. Electronically signed by: Samuel Whitehead MD 04/21/2024 11:47 PM EDT RP
--- NOTE | ~2024-04-08 | XR_ITS ---
EXAMINATION: XR BILATERAL HIPS WITH AP PELVIS CLINICAL INFORMATION: Right hip pain. Left hip pain. COMPARISON: None available. TECHNIQUE: AP and frog-leg lateral views of each hip and an AP view of the pelvis. FINDINGS: No fracture. Hip joint spaces are well maintained. Alignment is anatomic. Sacroiliac joints and pubic symphysis are normal. No abnormal soft tissue calcifications. XR/XR hip LT min 2V IMPRESSION: Normal pelvis and hips. Electronically signed by: Samuel Whitehead MD 04/21/2024 11:47 PM EDT RP
== END 2024-04-08 12:35 | disposition home or self-care (01) ==
LOC: HO.HOSX 12:34
PROVIDERS: Visit Provider Physician Assistant
DX: M25.552 Pain in left hip (principal); M25.551 Pain in right hip; M53.3 Sacrococcygeal disorders, not elsewhere classified; M76.892 Other specified enthesopathies of left lower limb, excluding foot
CPT/HCPCS: 73502; 99212

== ENCOUNTER 2024-04-08 13:42 | Outpatient (AMB) | payer OTHER, SELFPAY ==
--- NOTE | 2024-04-08 13:51 | MHC.OFFVIS ---
Vital Signs 04/08/24 13:58 Height 4 ft 9 in Weight 221 lb BMI 47.8 Intake Visit Reasons: New prob- B/L Hip Pain Intake Note: Georgina a 29 year old female who presents today for an evaluation of bilateral hip pain. Patient reports her pain has been present for about 4 months. Her left hip is the worse and her pain will fluctuate in intensity. States her pain is like a grinding sensation. She has numbness and tingling that radiates down her leg to her toes. No previous tx. Allergies No Known Allergies [No Known Allergies*] Allergy (Verified 04/08/24 13:54) Medication List - Last Reconciled 04/08/24 by Rachid Ibarra PA-C ascorbate calcium (vitamin C) 500 mg PO DAILY 30 days ferrous gluconate 324 mg PO DAILY 30 days medroxyprogesterone (Depo-Provera) 150 mg IM [id number] HPI HPI New prob- B/L Hip Pain: Details: 29-year-old female who presents to the office today for an evaluation of bilateral hip pain for about 4 months. She states she has pain in her bilateral hips that is worse on her left hip. She describes the pain as a ?grinding sensation? that fluctuates in intensity. Her pain is aggravated with ambulation and moving the wrong way. She also experiences numbness and tingling that radiates down to the toes and aggravates with sitting. She denies any groin pain or pain with going in and out of her car. She has not had any treatment in the past. [facility] Medical History (Updated 04/08/24 @ 14:12 by Rachid Ibarra PA-C) Anemia delivery delivered Mitral valve prolapse Heart murmur Cancer Surgical History Hx of section History of appendectomy History of biopsy Family History Maternal Grandfather Diabetes Maternal Grandmother Diabetes Social History Household Members Other:: single 2 kids Housing: Apartment Alcohol intake: never Patient Tobacco Use Status: Never used Tobacco e-Cigarette/Vaping Use: Never Used Second Hand Smoke Exposure: No service: No 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al status: employed 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: [employer]- OA/ rt hand Cognitive needs: No Hearing needs: No Vision needs: No Review of Systems Const All systems reviewed & are unremarkable except as noted in HPI and below Physical Exam Vital Signs: BMI result Body Mass Index 47.8 Extrem Other: Bilateral hip: Normal to inspection. No pain with ROM of the hip. Mild Pain along the greater trochanter. No pain with hip flexion or abduction. Mild tenderness along the SI joint, L>R, Negative SLR. NVI. Results Reviewed Results Reviewed: xrays of both hips obtained today show well preserved joint space Assessment & Plan Assessment & Plan (1) SI (sacroiliac) joint dysfunction: Code(s): M53.3 - Sacrococcygeal disorders, not elsewhere classified Category: Medical (2) Tendinitis of both hips: Code(s): M76.891 - Other specified enthesopathies of right lower limb, excluding foot; M76.892 - Other specified enthesopathies of left lower limb, excluding foot Category: Medical Plan We discussed options which include PT, NSAIDs and injections. The patient will defer on the injection today and proceed with PT and NSAIDs. If symptoms persist, she will contact me for an injection, otherwise, PRN. Orders: Orders XR hip RT min 2V Today M25.551 - Pain in right hip PT Evaluation and Treatment Today M53.3 - Sacrococcygeal disorders, not elsewhere classified, M76.891 - Other specified enthesopathies of right lower limb, excluding foot, M76.892 - Other specified enthesopathies of left lower limb, excluding foot XR hip LT min 2V Today M25.552 - Pain in left hip Patient Instructions: Scribed for Rachid Ibarra PA-C, by Beck Pleitez biomedical photographer, on 03/29/2024 at 1:45 PM EST.? I, Rachid Ibarra PA-C, have personally reviewed and agree with the information entered by the scribe. Coding Level of Care Code Est Pt Level 3 (19674) Complex EM visit Add On G2211 Diagnoses SI (sacroiliac) joint dysfunction M53.3 Tendinitis of both hips M76.891; M76.892
[2024-04-08 13:58] VITALS: BMI 47.8
== END 2024-04-08 14:48 | disposition home or self-care (01) ==
PROVIDERS: Visit Provider Physician Assistant
DX: M53.3 Sacrococcygeal disorders, not elsewhere classified (principal); M76.891 Other specified enthesopathies of right lower limb, excluding foot; M76.892 Other specified enthesopathies of left lower limb, excluding foot
CPT/HCPCS: 99213; G2211

== ENCOUNTER 2024-06-09 14:07 | Outpatient (RCR) | payer OTHER, SELFPAY | END 2025-05-19 12:39 | disposition home or self-care (01) | LOC: HO.PT 14:07 | PROVIDERS: PCP Family Medicine; Visit Provider Physician Assistant | DX: M53.3 Sacrococcygeal disorders, not elsewhere classified (principal); M76.891 Other specified enthesopathies of right lower limb, excluding foot; M76.892 Other specified enthesopathies of left lower limb, excluding foot | CPT/HCPCS: 97110; 97161; 97530 ==

== ENCOUNTER → 2024-06-29 15:48 | Outpatient (AMB) | payer OTHER, SELFPAY ==
--- NOTE | 2024-06-29 15:53 | MHC.OFFVIS ---
Vital Signs 06/29/24 15:54 Height 4 ft 9 in Weight 240 lb 4.862 oz BMI 52.0 BP 123/60 Blood Pressure Location Lt brachial Position Sitting Pulse 92 Intake Visit Reasons: Chronic Diahrrea Intake Note: Georgina presents in the office as a new patient for chronic diarrhea. CC: She has had diarrhea for 2.5 years. It went away after her last baby but now it has came back. Pains in the stomach but more so irritating. No blood that she has noticed. Bias Cutter Required: No Allergies No Known Allergies [No Known Allergies*] Allergy (Verified 06/29/24 15:55) HPI Comments Details: 29 y.o F with PMH who is here for chronic diarrhea. [place] [facility] Was earlier this year, now returning for follow up. Pt reports 2-3 soft to loose BMs per day assoc with LUQ pain without any N/V. No fevers, chills, appetite change. Pain gets better with defecation. Has sx every other day. No blood in stool. Has hx of GI illness 1.5y ago and reports sx started shortly after it. Prev w/up neg for celiac, hyperthyroidism, chronic infection. Rifaximin trialed 2022 and did report short term improvement. [facility] Medical History Anemia delivery delivered Mitral valve prolapse Heart murmur Cancer Surgical History Hx of section History of appendectomy History of biopsy Family History Maternal Grandfather Diabetes Maternal Grandmother Diabetes Social History Household Members Other:: single 2 kids Housing: Apartment Alcohol intake: never Patient Tobacco Use Status: Never used Tobacco e-Cigarette/Vaping Use: Never Used Second Hand Smoke Exposure: No service: No 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al status: employed 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: [employer]- OA/ rt hand Cognitive needs: No Hearing needs: No Vision needs: No Review of Systems Const All systems reviewed & are unremarkable except as noted in HPI and below Physical Exam Vital Signs: Last Vital Signs Pulse 92 06/29/24 15:54 BP 123/60 06/29/24 15:54 BMI result Body Mass Index 52.0 Assessment & Plan Assessment & Plan (1) Chronic diarrhea: Comment: Code(s): K52.9 - Noninfective gastroenteritis and colitis, unspecified Category: Medical (2) Abdominal pain: Code(s): R10.9 - Unspecified abdominal pain Category: Medical (3) Irritable bowel syndrome with diarrhea: Code(s): K58.0 - Irritable bowel syndrome with diarrhea Category: Medical Plan Overall clinical presentation consistent with IBS-D without any red flags to warrant urgent endoscopic evaluation at this time. Will complete eval by r/o celiac and IBD clarke given documentation of S.I tenderness - XRAYS neg. Plan: - Labs as below - Detailed discussion re natural course of IBS and management strategies - FODMAP handout given - Hyoscyamine Rxed for symtpomatic relief - Fiber intake Follow up 3 months - earlier if labs abnl. Orders: Orders C Reactive Protein Today K52.9 - Noninfective gastroenteritis and colitis, unspecified Calprotectin, Fecal Today K52.9 - Noninfective gastroenteritis and colitis, unspecified Immunoglobulin A Today K52.9 - Noninfective gastroenteritis and colitis, unspecified Transglutaminase IgA Today K52.9 - Noninfective gastroenteritis and colitis, unspecified Medications: New hyoscyamine sulfate 0.125 mg PO BID-QID PRN 90 tabs 1RF abd pain Coding Level of Care Code Est Pt Level 4 (60942) Diagnoses Chronic diarrhea K52.9 Abdominal pain R10.9 Irritable bowel syndrome with diarrhea K58.0
[2024-06-29 15:54] VITALS: BP 123/60; PULSE 92; BMI 52.0
== END ==
PROVIDERS: PCP Family Medicine; Visit Provider Internal Medicine
DX: K58.0 Irritable bowel syndrome with diarrhea (principal); R10.9 Unspecified abdominal pain
CPT/HCPCS: 99214

== ENCOUNTER → 2024-06-29 15:48 | Outpatient (BNVA) | payer OTHER, SELFPAY | PROVIDERS: PCP Family Medicine; Visit Provider Internal Medicine | DX: K52.9 Noninfective gastroenteritis and colitis, unspecified (principal); K58.0 Irritable bowel syndrome with diarrhea; R10.9 Unspecified abdominal pain | CPT/HCPCS: 99212 ==

== ENCOUNTER → 2024-09-23 08:12 | Outpatient (BNVA) | payer OTHER, SELFPAY | PROVIDERS: PCP Family Medicine; Visit Provider Physician Assistant Surgical ==

== ENCOUNTER 2024-10-15 14:00 | Outpatient (AMB) | payer OTHER, SELFPAY ==
--- NOTE | 2024-10-15 14:08 | MHC.PC.OV ---
Vital Signs 10/15/24 14:09 Height 4 ft 9.5 in Weight 243 lb BMI 51.7 BP 96/70 Blood Pressure Location Lt brachial Position Sitting Respiration 16 Pulse 67 Pulse Source Pulse Oximeter Temp 99.6 F Temp Source Oral Pulse Oximetry (%) 98 Oxygen Delivery Method Room Air Intake Visit Reasons: urgent care f/u swelling on the left side of face Intake Note: patient is scheduled to follow up for facial swelling Pile Header Required: No Allergies No Known Allergies [No Known Allergies*] Allergy (Verified 10/15/24 14:08) Medication List - Last Reconciled 10/15/24 by Jose Fox MD etonogestrel-ethinyl estradiol 0.12-0.015 mg/24 hr (NuvaRing) 1 vag ring vaginal Q4W Tobacco use date assessed: 03/12/24 Dental Screening Dental Screen Date: 03/12/24 HPI urgent care f/u swelling on the left side of face HPI Details 29 y/o female presents to f/u facial swelling. Had went to an urgent care clinic and she notes she had been given augmentin. She states swelling had been a lot worse and symptoms have been improving. She does note an ongoing ache. [facility] Medical History Anemia delivery delivered Mitral valve prolapse Heart murmur Cancer Surgical History Hx of section History of appendectomy History of biopsy Family History (Updated 10/14/24 @ 09:[address] [facility]) Maternal Grandfather Diabetes Maternal Grandmother Diabetes Mother No problems noted. Father No problems noted. Daughter No problems noted. Daughter No problems noted. Daughter Hip dysplasia Social History Household Members Other:: single 2 kids Housing: Apartment Alcohol intake: never Patient Tobacco Use Status: Never used Tobacco e-Cigarette/Vaping Use: Never Used Second Hand Smoke Exposure: No service: No 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al status: employed 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: [employer]- OA/ rt hand Cognitive needs: No Hearing needs: No Vision needs: No Questionnaire PHQ-9 Over the last 2 weeks, how often have you been bothered by any of the following problems? 1. Little interest or pleasure in doing things: several days 2. Feeling down, depressed, or hopeless: several days 3. Trouble falling or staying asleep, or sleeping too much: several days 4. Feeling tired or having little energy: several days 5. Poor appetite or overeating: not at all 6. Feeling bad about yourself - or that you are a failure or have let yourself or your family down: not at all 7. Trouble concentrating on things, such as reading the newspaper or watching television: several days 8. Moving or speaking so slowly that other people could have noticed. Or the opposite - being so fidgety or restless that you have been moving around a lot more than usual: not at all 9. Thoughts that you would be better off or of hurting yourself in some way: not at all Total score: 5 Source: Developed by Drs. Aston Carlos, Danica Carreno, Remigio Edwards and colleagues, with an educational neli from [employer]. Thrive Questionnaire Date Thrive assessed: 03/12/24 I am a: Patient What is your living situation today?: I have a steady place to live Within the past 12 months, did the food you bought not last and you didn't have the money to get more?: I choose not to answer this question Within the past 12 months, did you worry whether your food would run out before you got money to buy more?: I choose not to answer this question Do you have trouble paying for medicines?: No Do you have trouble getting transportation to medical appointments?: No Do you have trouble paying your heating and electricity bill?: Yes Do you have trouble taking care of your child, family member or friend?: No Do you have trouble with day-to-day activities such as bathing, preparing meals, shopping, managing finances, etc.?: No Are you currently unemployed and looking for a job?: No Are you interested in more education?: Yes Please select the resources that you would like help with: Housing/Chcf and Utilities Currently or been in a relationship where the following occur: No concerns reported THRIVE Score: 1 AUDIT C Alcohol Use Questionnaire (AUDIT-C) 1. How often do you have a drink containing alcohol?: Never Total Score: 0 ANGEL-7 AMB Questionnaire ANGEL-7 Date ANGEL - 7 assessed: 03/12/24 Feeling nervous, anxious, or on edge: 1 = Several days Not being able to stop or control worryin = Several days Worrying too much about different things: 1 = Several days Trouble relaxin = Several days Being so restless that it is hard to sit still: 1 = Several days Becoming easily annoyed or irritable: 1 = Several days Feeling afraid as if something awful might happen: 1 = Several days Total ANGEL-7 score (0-4 normal; 5-9 mild; 10-14 moderate; 15-21 severe): 7 Source: Developed by Drs. Aston Carlos, Danica Carreno, Remigio Edwards and colleagues, with an educational neli from [employer]. Review of Systems Const Denies chills, Denies fatigue, Denies fever(s), Denies headache(s) and Denies weakness ENT Denies dizziness and Denies headache(s) Card Denies dyspnea Resp Denies cough, Denies dyspnea, Denies wheezing and Denies other (shortness of breath) Musc Denies numbness and Denies tingling Neuro Denies dizziness, Denies headache(s), Denies numbness, Denies tingling and Denies weakness Psych Denies anxiety and Denies depression Endo Denies fatigue Aller/Immun Denies wheezing Physical exam (Primary Care) Vital Signs: Last Vital Signs Temp 99.6 F 10/15/24 14:09 Pulse 67 10/15/24 14:09 Resp 16 10/15/24 14:09 BP 96/70 10/15/24 14:09 Pulse Ox 98 10/15/24 14:09 Oxygen Delivery Method Room Air 10/15/24 14:09 BMI result Body Mass Index 51.7 Tobacco/Smoking Status: Tobacco use Status Tobacco use date assessed 03/12/24 10/15/24 14:13 Patient Tobacco Use Status Never used Tobacco 10/15/24 14:13 e-Cigarette/Vaping Use Never Used 10/15/24 14:13 PHQ-9: PHQ-9 Score PHQ-9: Total score 5 10/15/24 14:23 Thrive Assessment: Date of Thrive Assessment Date Thrive assessed 03/12/24 10/15/24 14:13 Currently or been in a relationship where the following occur: No concerns reported Const General: well developed; No acute distress Nutritional Appearance: obese morbidly obese Orientation/consciousness: patient oriented x3 HENMT Head: Yes normocephalic and Yes atraumatic Eyes General: appearance normal, both eyes and all related structures Pupils: Equal, round and reactive pupils present EOM: EOMs intact bilaterally Resp Effort & Inspection: normal respiratory effort Neuro General: patient oriented x3 and gait normal Cranial nerves: Yes Equal, round and reactive pupils present Psych Affect: normal affect Coding Level of Care Code Est Pt Level 3 (05983) Diagnoses Facial swelling R22.0 Assessment & Plan Assessment & Plan (1) Facial swelling: Code(s): R22.0 - Localized swelling, mass and lump, head Category: Medical Plan: Left?parotiditis?and?she?is?currently?in?a?course?of?Augmentin?given?to?her?by?urgent?care. Already?improving Advised?warm?compresses,?sour?candies?or?lemon?drops,?good?hydration Finish?Augmentin Call?or?return?to?office?if?worsening?or?not?resolving. Orders: Orders Lipid Panel Today Z00.00 - Encounter for general adult medical examination without abnormal findings Microalbumin, Random (w Creat) Today I10 - Essential (primary) hypertension TSH reflex Free T4 Today Z00.00 - Encounter for general adult medical examination without abnormal findings UA and rflx microscopic Today Z00.00 - Encounter for general adult medical examination without abnormal findings Comprehensive [place]. Panel Fast Today Z00.00 - Encounter for general adult medical examination without abnormal findings Complete Blood Count Auto Diff Today Z00.00 - Encounter for general adult medical examination without abnormal findings
[2024-10-15 14:09] VITALS: BP 96/70; PULSE 67; RESP 16; TEMP 37.6; O2SAT 98; BMI 51.7
== END 2024-10-15 14:32 | disposition home or self-care (01) ==
LOC: HO.HMCFM 14:01
PROVIDERS: PCP Family Medicine; Visit Provider Family Medicine
DX: R22.0 Localized swelling, mass and lump, head (principal)

== ENCOUNTER → 2024-10-15 14:00 | Outpatient (BNVA) | payer OTHER, SELFPAY | PROVIDERS: PCP Family Medicine; Visit Provider Family Medicine | DX: R22.0 Localized swelling, mass and lump, head (principal) | CPT/HCPCS: 99212 ==

== ENCOUNTER 2024-10-16 08:48 | Outpatient (REF) | payer OTHER, SELFPAY ==
[2024-10-16 10:16] LABS: MANUAL DIFF FLAG NO
[2024-10-16 10:21] LABS: Basophils Percent Auto 0.2 % (0-2); Eosinophils Absolute Auto 0.1 X10*3/uL (0.0-0.4); Hematocrit 37.1 % (37.0-47.0); Hemoglobin 11.9 g/dl (12.0-16.0); Imm Gran Abs Auto 0.01 X10*3/uL (0.00-0.03); Imm Gran Pct Auto 0.2 % (0.0-0.4); Lymphocytes Absolute Auto 1.1 X10*3/uL (1.2-4.9); Lymphocytes Percent Auto 21.2 % (20-40); Mean Corpuscular HGB Conc 32.1 g/dl (31.0-35.0); Mean Corpuscular Hemoglobin 26.8 pg (27.0-33.0); Mean Corpuscular Volume 83.6 fL (80.0-98.0); Mean Platelet Volume 8.5 fL (9.4-12.3); Monocytes Absolute Auto 0.3 X10*3/uL (0.1-1.2); Monocytes Percent Auto 6.3 % (2-11); Neutrophils Absolute Auto 3.6 x10*3/uL (2.0-8.3); Neutrophils Percent Auto 71.1 % (45-73); Platelet Count 331 X10*3/uL (160-400); Red Blood Count 4.44 X10*6/uL (4.20-5.50); Red Cell Distribution Width 13.5 % (11.0-16.0); White Blood Count 5.1 X10*3/uL (4.8-10.8)
[2024-10-16 10:37] LABS: Estimated Average Glucose 105 mg/dL; Hemoglobin A1c % 5.3 % (<6.0)
[2024-10-16 10:37] LABS: C Reactive Protein 0.65 mg/dL (< or = 0.50)
[2024-10-16 10:39] LABS: Iron 40 mcg/dL (30-160); Percent Iron Saturation 16 % (15-50); Total Iron Binding Capacity 248 mcg/dL (228-428); Unsaturated Iron Binding 208 ug/dL
[2024-10-16 10:53] LABS: Alanine Aminotransferase 38 U/L (0-31); Alkaline Phosphatase 61 U/L (39-117); Anion Gap 8 (12-20); Aspartate Amino Transferase 22 U/L (5-31); Bilirubin Total 0.4 mg/dL (0.0-1.0); Blood Urea Nitrogen 16 mg/dL (9-16); Calcium 8.6 mg/dL (8.4-10.2); Carbon Dioxide 23 mmol/L (22-29); Chloride 112 mmol/L (96-108); Cholesterol 156 mg/dL (<200); Estimated Glomerular Filt Rate > 60; Glucose Fasting 98 mg/dL (60-99); HDL Cholesterol 46 mg/dL (>40); LDL Cholesterol Calculated 94 mg/dL (<100); Potassium 3.9 mmol/L (3.3-5.1); Sodium 139 mmol/L (135-145); Total Protein 7.1 g/dL (6.5-8.0); Triglycerides 84 mg/dL (<150)
[2024-10-16 10:56] LABS: TSH reflex Free T4 0.79 uIU/mL (0.32-4.0); Vitamin D 25-OH Total 19.9 ng/mL (>30)
[2024-10-16 10:58] LABS: Ferritin 34 ng/mL (10-122)
[2024-10-16 11:02] LABS: Appearance Urine Turbid; Color Urine Yellow; Glucose Urine UA Negative (Negative); Leukocyte Esterase Urine Negative (Negative); Nitrite Urine Negative (Negative); PH 5.5 (5.0-9.0); Specific Gravity - Urine >= 1.030 (1.005-1.025); Urine Blood Negative (Negative); Urine Ketones Negative (Negative); Urine Protein Negative (Neg-Trace)
[2024-10-16 11:05] LABS: Folate 8.7 ng/mL (> or = 4.0); Vitamin B12 386 pg/mL (200-900)
[2024-10-16 11:17] LABS: Creatinine Urine 212.45 mg/dL; Microalbum/Creatinine Ratio Ur 2.8 ug/mg cr (<30)
[2024-10-19 08:58] LABS: Immunoglobulin A 127 mg/dL (47-310)
[2024-10-19 18:08] LABS: Transglutaminase IgA <1.0 U/mL
== END 2024-10-16 08:49 | disposition home or self-care (01) ==
LOC: HO.10HDL 08:48
PROVIDERS: Internal Medicine; Nurse Practitioner Family; Visit Provider Family Medicine
DX: Z00.00 Encounter for general adult medical examination without abnormal findings (principal); G47.61 Periodic limb movement disorder; I10 Essential (primary) hypertension; E53.8 Deficiency of other specified B group vitamins; R73.01 Impaired fasting glucose; E55.9 Vitamin D deficiency, unspecified; D64.9 Anemia, unspecified; K52.9 Noninfective gastroenteritis and colitis, unspecified
CPT/HCPCS: 36415; 80053; 80061; 81003; 82043; 82306; 82570; 82607; 82728; 82746; 82784; 83036; 83540; 84443; 85025; 86140; 86364

== ENCOUNTER 2024-10-20 08:00 | Outpatient (AMB) | payer OTHER, SELFPAY ==
--- NOTE | 2024-10-20 11:22 | MHC.OFFVISWM ---
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 BMI 50.9: Details: Start time: 11.07am, End time: 12.02pm ?I spent 50 minutes speaking with the patient on the phone plus an additional 5 minutes reviewing and updating records for a total of 55 minutes HPI Comments Details: [place] [facility] [place] Wakes up: 6.30am, Sleeps: 9.30pm Breakfast: 9am (scrambled eggs) Lunch: 11-12pm (meat with vegetables, or salad, or soup) Dinner: 7pm (steak, pork, chicken, shrimp, pasta, vegetables) Snacks: none Exercise: none Beverages: Coffee 1-2 cups/d (creamer and sugar), tea: iced occasionally, soda: regular Coke, juice: none, ETOH: 1-2/yr [facility] Medical History (Updated 10/20/24 @ 11:30 by Mark Olivo MD) GERD (gastroesophageal reflux disease) Anemia delivery delivered Mitral valve prolapse Heart murmur Cancer Surgical History Hx of section History of appendectomy History of biopsy Family History (Updated 10/14/24 @ 09:08 by Liz De La Vega CMA) Maternal Grandfather Diabetes Maternal Grandmother Diabetes Mother No problems noted. Father No problems noted. Daughter No problems noted. Daughter No problems noted. Daughter Hip dysplasia Social History Household Members Other:: single 2 kids Housing: Apartment Alcohol intake: never Patient Tobacco Use Status: Never used Tobacco e-Cigarette/Vaping Use: Never Used Second Hand Smoke Exposure: No service: No 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al status: employed 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: [employer]- OA/ rt hand Cognitive needs: No Hearing needs: No Vision needs: No Telehealth Telehealth Telehealth Platform: Telephone Location of provider rendering services: practice address Location of patient: address on file Patient Identification confirmed using: Name, : Yes Telehealth method: voice only Patient verbally consented to treatment: Yes Patient verbally consented to billing insurance company: Yes Patient informed of any privacy concerns related to visit: Yes Minutes spent on Phone/Video with Pt.: 55 Assessment & Plan Assessment & Plan (1) Morbid obesity with BMI of 50.0-59.9, adult: Code(s): E66.01 - Morbid (severe) obesity due to excess calories; Z68.43 - Body mass index [BMI] 50.0-59.9, adult Category: Medical Plan: 1.? Plan for lap sleeve gastrectomy. If diaphragmatic or ventral hernias are present at time of surgery, these will be repaired laparoscopically as well. I emphasized the importance of close follow-up, adherence to instructions and good communication. The surgery does not replace the need to change your lifestlyle which is the cause of the obesity problem. The surgery provides the motivation to try again to change your lifestyle, it reduces the appetite and make the transition to a better lifestyle easier and doubles the amount of weight you would lose compared to doing the lifestyle change without the surgery. You will need to be on a liquid diet with protein shakes for 2 weeks before surgery to maximize weight loss and boost your nutritional status to recover better from surgery and also for the first two weeks after surgery to let the stomach heal before we introduce other foods. After the first 2 weeks we will introduce protein bars and soft foods like scrambled eggs, cottage cheese and yogurt and after the 6th week will introduce meat, fish and cooked vegetables in small amounts. Over time you should be able to eat everything in small amounts. Side effects like nausea, vomiting, heartburn or abdominal pain are not common in the practice unless you are not following in the practice. This operation requires lifetime commitment to following in our practice and communication with me. You will much less weight and experience side effects if you don?t communicate or not following in the practice. Complications are rare and in our practice is about 1/10 of the national average. However, you can develop bleeding that may require transfusion (hasn?t happened for year in the practice), you may from complications (we did not have any deaths in the practice) and infections. Infections are usually a result of breakdown in communication or not understanding or following directions correctly. They are difficult to treat, they can happen during the first 6 weeks, they may require to be in the hospital for weeks or even months, not being able to eat by mouth and you may have drains and surgeries to try and correct the issue. Other risks and complications include possible conversion to an open procedure, leaks, small bowel obstruction, blood clots, cardiac, or pulmonary complications, as exterminator termite complications such as ulcers, insufficient weight loss and vitamin deficiencies. 2. You will receive a link of our software sheyla to generate an individualized nutritional and exercise plan specific for you. Please send me a screenshot of the plans you will generate Meal to include lean meat (beef, fish, pork, turkey, chicken), or sammarinese yogurt, or egg whites, or beans with a salad with olive oil and fruits (berries, pears, apples, kiwi). Avoid salt, breads, potatoes, rice, pasta, desserts. ?3. If you choose shakes, each shake would be drunk slowly, like coffee in a period of 2 hours. ?4. If you choose bars, cut each bar in 4 pieces and eat each piece in 30min ?to make each bar last 2 hours. ?5. I emphasized the importance of measuring accurately the food portion and measure it when serving the food in plate ?6. The meal portions include a specific number of forks of meat and salad. You always eat the meat portion but you can replace up to half of salad/vegetables portion with rice, potatoes or pasta, or a fruit ?if you like. The less you do it the better weight loss will be. ?7. One full-size fork is what it can be scooped on the fork without falling aside and not what can be bit with the fork. Use regular forks like those you find in a typical restaurant. ?8.? Please buy the body composition scale we discussed and send me weight measurements as soon as possible and then once a week. Always include your diet and exercise plan. 9. The best choice would be to purchase a stationary bike, elliptical or treadmill at home that can track calories. Let me know if you do so I can give you an exercise plan. ?10.?It is important of avoiding and for at least 18 months postoperatively and has been discussed at the infosession. ?11. Goal is to lose at least 1.5-2lbs per week ?12. Goal to lose 10% of your weight before surgery, which is about 24lbs. Ultimate weight goal: 212lbs before surgery 13. Please follow the diet plan exactly without any change. If you don't like something about the plan or you feel hungry you need to communicate with me so I can help you revise the plan. You should not change the plan yourself. 14. To be scheduled for EGD due to the history of sleeve gastrectomy and anemia. The possibility of biopsies was discussed. Patient needs to avoid use of NSAIDs and aspirin for 1 week prior to EGD. You must be on liquids only the day before your endoscopy. Risks of perforation and bleeding was discussed with the patient. This will be an outpatient procedure with IV sedation. Orders: Orders Insulin Today E66.01 - Morbid (severe) obesity due to excess calories, G47.33 - Obstructive sleep apnea (adult) (pediatric), K21.9 - Gastro-esophageal reflux disease without esophagitis, Z68.43 - Body mass index [BMI] 50.0-59.9, adult Lipid Panel Today E66.01 - Morbid (severe) obesity due to excess calories, G47.33 - Obstructive sleep apnea (adult) (pediatric), K21.9 - Gastro-esophageal reflux disease without esophagitis, Z68.43 - Body mass index [BMI] 50.0-59.9, adult IRON PROFILE Today E66.01 - Morbid (severe) obesity due to excess calories, G47.33 - Obstructive sleep apnea (adult) (pediatric), K21.9 - Gastro-esophageal reflux disease without esophagitis, Z68.43 - Body mass index [BMI] 50.0-59.9, adult Comprehensive Met. Panel Today E66.01 - Morbid (severe) obesity due to excess calories, G47.33 - Obstructive sleep apnea (adult) (pediatric), K21.9 - Gastro-esophageal reflux disease without esophagitis, Z68.43 - Body mass index [BMI] 50.0-59.9, adult Zinc Today E66.01 - Morbid (severe) obesity due to excess calories, G47.33 - Obstructive sleep apnea (adult) (pediatric), K21.9 - Gastro-esophageal reflux disease without esophagitis, Z68.43 - Body mass index [BMI] 50.0-59.9, adult C Reactive Protein Today E66.01 - Morbid (severe) obesity due to excess calories, G47.33 - Obstructive sleep apnea (adult) (pediatric), K21.9 - Gastro-esophageal reflux disease without esophagitis, Z68.43 - Body mass index [BMI] 50.0-59.9, adult Vitamin B1 Today E66.01 - Morbid (severe) obesity due to excess calories, G47.33 - Obstructive sleep apnea (adult) (pediatric), K21.9 - Gastro-esophageal reflux disease without esophagitis, Z68.43 - Body mass index [BMI] 50.0-59.9, adult TSH reflex Free T4 Today E66.01 - Morbid (severe) obesity due to excess calories, G47.33 - Obstructive sleep apnea (adult) (pediatric), K21.9 - Gastro-esophageal reflux disease without esophagitis, Z68.43 - Body mass index [BMI] 50.0-59.9, adult Vitamin D 25-OH Total Today E66.01 - Morbid (severe) obesity due to excess calories, G47.33 - Obstructive sleep apnea (adult) (pediatric), K21.9 - Gastro-esophageal reflux disease without esophagitis, Z68.43 - Body mass index [BMI] 50.0-59.9, adult US abdomen comp w elastography Today E66.01 - Morbid (severe) obesity due to excess calories, G47.33 - Obstructive sleep apnea (adult) (pediatric), K21.9 - Gastro-esophageal reflux disease without esophagitis, Z68.43 - Body mass index [BMI] 50.0-59.9, adult ECG 12 lead EKG Today E66.01 - Morbid (severe) obesity due to excess calories, G47.33 - Obstructive sleep apnea (adult) (pediatric), K21.9 - Gastro-esophageal reflux disease without esophagitis, Z68.43 - Body mass index [BMI] 50.0-59.9, adult Hemoglobin A1c Today E66.01 - Morbid (severe) obesity due to excess calories, G47.33 - Obstructive sleep apnea (adult) (pediatric), K21.9 - Gastro-esophageal reflux disease without esophagitis, Z68.43 - Body mass index [BMI] 50.0-59.9, adult H Pylori Breath Test Today E66.01 - Morbid (severe) obesity due to excess calories, G47.33 - Obstructive sleep apnea (adult) (pediatric), K21.9 - Gastro-esophageal reflux disease without esophagitis, Z68.43 - Body mass index [BMI] 50.0-59.9, adult Complete Blood Count Auto Diff Today E66.01 - Morbid (severe) obesity due to excess calories, G47.33 - Obstructive sleep apnea (adult) (pediatric), K21.9 - Gastro-esophageal reflux disease without esophagitis, Z68.43 - Body mass index [BMI] 50.0-59.9, adult Vitamin B12 and Folate Today E66.01 - Morbid (severe) obesity due to excess calories, G47.33 - Obstructive sleep apnea (adult) (pediatric), K21.9 - Gastro-esophageal reflux disease without esophagitis, Z68.43 - Body mass index [BMI] 50.0-59.9, adult Vitamin A Today E66.01 - Morbid (severe) obesity due to excess calories, G47.33 - Obstructive sleep apnea (adult) (pediatric), K21.9 - Gastro-esophageal reflux disease without esophagitis, Z68.43 - Body mass index [BMI] 50.0-59.9, adult Ferritin Today E66.01 - Morbid (severe) obesity due to excess calories, G47.33 - Obstructive sleep apnea (adult) (pediatric), K21.9 - Gastro-esophageal reflux disease without esophagitis, Z68.43 - Body mass index [BMI] 50.0-59.9, adult XR chest 2V Today E66.01 - Morbid (severe) obesity due to excess calories, G47.33 - Obstructive sleep apnea (adult) (pediatric), K21.9 - Gastro-esophageal reflux disease without esophagitis, Z68.43 - Body mass index [BMI] 50.0-59.9, adult FL upper GI w air Today E66.01 - Morbid (severe) obesity due to excess calories, G47.33 - Obstructive sleep apnea (adult) (pediatric), K21.9 - Gastro-esophageal reflux disease without esophagitis, Z68.43 - Body mass index [BMI] 50.0-59.9, adult Referrals Behavioral Health Referral E66.01 - Morbid (severe) obesity due to excess calories, G47.33 - Obstructive sleep apnea (adult) (pediatric), K21.9 - Gastro-esophageal reflux disease without esophagitis, Z68.43 - Body mass index [BMI] 50.0-59.9, adult Nutrition/Dietitian Referral E66.01 - Morbid (severe) obesity due to excess calories, G47.33 - Obstructive sleep apnea (adult) (pediatric), K21.9 - Gastro-esophageal reflux disease without esophagitis, Z68.43 - Body mass index [BMI] 50.0-59.9, adult
[2024-10-20 11:36] VITALS: BMI 50.3
== END 2024-10-20 12:03 | disposition home or self-care (01) ==
LOC: HO.HBS 08:00
PROVIDERS: PCP Family Medicine; Visit Provider Surgery
DX: E66.813 Obesity, class 3 (principal); Z68.43 Body mass index [BMI] 50.0-59.9, adult
CPT/HCPCS: 99204

== ENCOUNTER 2024-10-27 08:58 | Outpatient (REF) | payer OTHER, SELFPAY ==
[2024-10-27 18:09] LABS: MANUAL DIFF FLAG NO
[2024-10-27 18:32] LABS: Estimated Average Glucose 108 mg/dL; Hemoglobin A1C 114.1614 umol/L; Hemoglobin A1c % 5.4 % (<6.0); Total Hemoglobin (HGBA1C) 3201.9695 umol/L
[2024-10-27 19:02] LABS: Basophils Percent Auto 0.2 % (0-2); Eosinophils Absolute Auto 0.1 X10*3/uL (0.0-0.4); Eosinophils Percent Auto 0.8 % (0-4); Hematocrit 37.9 % (37.0-47.0); Hemoglobin 11.9 g/dl (12.0-16.0); Imm Gran Abs Auto 0.02 X10*3/uL (0.00-0.03); Imm Gran Pct Auto 0.3 % (0.0-0.4); Lymphocytes Absolute Auto 1.1 X10*3/uL (1.2-4.9); Lymphocytes Percent Auto 16.6 % (20-40); Mean Corpuscular HGB Conc 31.4 g/dl (31.0-35.0); Mean Corpuscular Hemoglobin 26.4 pg (27.0-33.0); Mean Platelet Volume 8.9 fL (9.4-12.3); Monocytes Absolute Auto 0.3 X10*3/uL (0.1-1.2); Monocytes Percent Auto 4.9 % (2-11); Neutrophils Absolute Auto 4.9 x10*3/uL (2.0-8.3); Neutrophils Percent Auto 77.2 % (45-73); Platelet Count 343 X10*3/uL (160-400); Red Blood Count 4.51 X10*6/uL (4.20-5.50); Red Cell Distribution Width 13.3 % (11.0-16.0); White Blood Count 6.3 X10*3/uL (4.8-10.8)
[2024-10-27 19:32] LABS: Folate 9.2 ng/mL (> or = 4.0); Vitamin B12 335 pg/mL (200-900)
[2024-10-27 20:04] LABS: Alanine Aminotransferase 17 U/L (0-31); Alkaline Phosphatase 51 U/L (39-117); Anion Gap 12 (12-20); Aspartate Amino Transferase 23 U/L (5-31); Bilirubin Total 0.5 mg/dL (0.0-1.0); Blood Urea Nitrogen 15 mg/dL (9-16); Calcium 8.9 mg/dL (8.4-10.2); Carbon Dioxide 20 mmol/L (22-29); Chloride 112 mmol/L (96-108); Cholesterol 178 mg/dL (<200); Estimated Glomerular Filt Rate > 60; Ferritin 34 ng/mL (10-122); Glucose Random 82 mg/dL (60-115); HDL Cholesterol 45 mg/dL (>40); Iron 55 mcg/dL (30-160); LDL Cholesterol Calculated 112 mg/dL (<100); Percent Iron Saturation 21 % (15-50); Potassium 4.1 mmol/L (3.3-5.1); Sodium 140 mmol/L (135-145); TSH reflex Free T4 0.68 uIU/mL (0.32-4.0); Total Iron Binding Capacity 263 mcg/dL (228-428); Total Protein 6.7 g/dL (6.5-8.0); Triglycerides 108 mg/dL (<150); Unsaturated Iron Binding 208 ug/dL; Vitamin D 25-OH Total 23.8 ng/mL (>30)
[2024-10-27 20:38] LABS: Insulin 7 uU/mL (2-29)
[2024-10-30 21:49] LABS: Zinc 69 mcg/dL (60-130)
[2024-10-31 15:23] LABS: Vitamin A 68 mcg/dL (38-98)
[2024-11-04 15:47] LABS: Vitamin B1 9 nmol/L (8-30)
== END 2024-10-27 08:59 | disposition home or self-care (01) ==
LOC: HO.HKASLDS 08:58
PROVIDERS: Visit Provider Surgery
DX: E66.01 Morbid (severe) obesity due to excess calories (principal); Z68.43 Body mass index [BMI] 50.0-59.9, adult; K21.9 Gastro-esophageal reflux disease without esophagitis; G47.33 Obstructive sleep apnea (adult) (pediatric)
CPT/HCPCS: 36415; 80053; 80061; 82306; 82607; 82728; 82746; 83036; 83525; 83540; 84425; 84443; 84590; 84630; 85025; 86140

== ENCOUNTER 2024-10-30 09:35 | Outpatient (REF) | payer OTHER, SELFPAY ==
--- NOTE | ~2024-10-30 | XR_ITS ---
EXAMINATION: XR CHEST 2 VIEWS HISTORY: E66.01 - Morbid (severe) obesity due to excess calories COMPARISON: Comparison is made with the prior examination dated is 04/16/2023. FINDINGS: PA and lateral views of the chest are submitted. The lungs are expanded and clear. There is no pleural effusion, pneumothorax, or pulmonary vascular congestion. The heart is normal in size. The bones are intact. XR/XR chest 2V IMPRESSION: No acute cardiopulmonary abnormality. Electronically signed by: Aston Nicholas MD 11/02/2024 08:43 AM EDT
--- NOTE | 2024-10-30 09:38 | ECG_ITS ---
Test Reason : MOR OBS Blood Pressure : */* mmHG Vent. Rate : 84 BPM Atrial Rate : 84 BPM P-R Int : 172 ms QRS Dur : 82 ms QT Int : 378 ms P-R-T Axes : 64 70 13 degrees QTcB Int : 446 ms Normal sinus rhythm Normal ECG When compared with ECG of 26-Apr-2023 11:55, No significant change was found Referred By: Mark Olivo Electronically Signed By: FERNANDO SELLERS
== END 2024-10-30 09:36 | disposition home or self-care (01) ==
LOC: HO.XRAY 09:35
PROVIDERS: PCP Family Medicine; Visit Provider Surgery
DX: E66.01 Morbid (severe) obesity due to excess calories (principal); Z68.43 Body mass index [BMI] 50.0-59.9, adult; K21.9 Gastro-esophageal reflux disease without esophagitis; G47.33 Obstructive sleep apnea (adult) (pediatric)
CPT/HCPCS: 71046; 93005

== ENCOUNTER → 2024-10-30 09:38 | Outpatient (BNV) | payer OTHER, SELFPAY | PROVIDERS: PCP Family Medicine; Visit Provider Internal Medicine | DX: E66.01 Morbid (severe) obesity due to excess calories (principal) | CPT/HCPCS: 93010 ==

== ENCOUNTER → 2024-10-30 12:26 | Outpatient (BNV) | payer OTHER, SELFPAY | PROVIDERS: PCP Family Medicine; Visit Provider Radiology Diagnostic Radiology | DX: E66.01 Morbid (severe) obesity due to excess calories (principal) | CPT/HCPCS: 71046 ==

== ENCOUNTER → 2024-11-27 09:20 | Outpatient (BNVA) | payer OTHER, SELFPAY | PROVIDERS: PCP Family Medicine; Visit Provider Counselor Mental Health ==

== ENCOUNTER → 2024-11-27 09:20 | Outpatient (AMB) | payer OTHER, SELFPAY ==
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
--- OUTSIDE RECORDS SUMMARY | 2024-11-27 09:57 | XMS_ITS | Encounter Summary ---
Author Organization [facility] Address [address] [place] [address] Care Team Providers Care Computer Technology Teacher Name Role Phone Unavailable Primary Care Provider Unavailabl e Encounter Details Date Type Department Care Team (Late st Contact Info) Description 11/24/2024 Telephone [facility] [address] [place] [address] Anabela Arredondo Social History Tobacco Use Types Packs/Day Years Used Date Smoking Tobacco: Never Assessed Comments Unknown Sex and Gender Information Value Date Recorded Sex Assigned at Female 05/28/2022 10:25 AM EDT Legal Sex Female 10:25 AM EDT Gender Identity Female 05/28/2022 10:25 AM EDT Sexual Orientation Straight 05/28/2022 10 :25 AM EDT documented as of this encounter Miscellaneous Notes * Telephone Encounter - Anabela Arredondo - 11/24/2024 11:21 AM EDT Lvm to call and schedule an apt documented in this encounter Plan of Treatment Upcoming Encounters Date Type Department Care Team (Late st Contact Info) Description 12/03/2024 1:30 PM EDT Office Visit [facility] [address] [place], [place] [phone] Palak Martinez, EMILIANA [address] [place] [address] documented as of this encounter Visit Diagnoses Not on filedocumented in this encounter
--- OUTSIDE RECORDS SUMMARY | 2024-11-27 09:57 | XMS_ITS | Clinical Summary ---
Author Organization [facility] Address [address] [place] [address] [address] [place] [address] Care Team Providers Care It Network Engineer Name Role Phone Unavailable Primary Care Provider Unavailabl e Encounters Date Type Department Care Team Description 11/24/2024 Telephone [facility] [address] [place] [id number] Anabela Arredondo from Last 3 Months Social History Tobacco Use Types Packs/Day Years Used Date Smoking Tobacco: Never Assessed Comments Unknown Sex and Gender Information Value Date Recorded Sex Assigned at Female 05/28/2022 10:25 AM EDT Legal Sex Female 10:25 AM EDT Gender Identity Female 05/28/2022 10:25 AM EDT Sexual Orientation Straight 05/28/2022 10 :25 AM EDT Plan of Treatment Upcoming Encounters Date Type Department Care Team (Late st Contact Info) Description 12/03/2024 1:30 PM EDT Office Visit [facility] [address] [place] [id number] Palak Martinez, EMILIANA [address] [place] [address] Health Maintenance Due Date Last Done Comments Depression Screening 1995 HIV Screening 1995 SDOH Screening 1995 Alcohol/Substance Use Screening 2007 Tobacco Screening 2007 Family Planning (PISQ) 2010 Hepatitis C Screening 2013 Pap Smear 02/02/2016 COVID-19 Vaccine ( season) 2024 06/21/2021 Influenza Vaccine (#1) 2024 , 05/13/2019, 05/26/2016, Additional history exists DTaP/Tdap/Td Vaccines (7 - Td or Tdap) 08/06/2028 08/06/2018, 09/12/2007, 07/21/1996, Additional history exists Zoster Vaccines (1 of 2) 2045 RSV Patients and Patients Aged 60 years or older (1 - 1-dose 75+ series) 2070 Hepatitis B Vaccines Completed 1995, 1995, 1995 HIB Vaccines Completed 07/21/1996, 06/29, 1995, Additional history exists IPV Vaccines Completed 04/21/1998, 06/29, 1995, Additional history exists Meningococcal Vaccine Aged Out 09/13/2008 No deedee charles eligible based on patient's age to complete this topic HPV Vaccines Completed 09/19/2009, 04/28, 09/13/2008 Pneumococcal Vaccine: Pediatrics (0 to 5 Years) and At-Risk Patients (6 to 49) Years) Aged Out 05/26/2016, 05/26/2013 No longer eligibl e based on patient's age to complete this topic Hepatitis A Vaccines Aged Out No long er eligible based on patient's age to complete this topic RSV under 20 months Aged Out No longe r eligible based on patient's age to complete this topic Rotavirus Vaccines Aged Out No longer eligible based on patient's age to complete this topic
== END ==
PROVIDERS: PCP Family Medicine; Visit Provider Counselor Mental Health
DX: F53.0 Postpartum depression (principal); Z71.89 Other specified counseling
CPT/HCPCS: 90791

== ENCOUNTER 2024-12-08 11:10 | Outpatient (AMB) | payer OTHER, SELFPAY ==
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
--- OUTSIDE RECORDS SUMMARY | 2024-12-08 12:37 | XMS_ITS | Clinical Summary ---
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 Name Role Phone Unavailable Primary Care Provider Unavailabl e Allergies No known active allergies Medications No known medications Active Problems Problem Noted Date Diagnosed Date Known health problems: none Encounters Date Type Department Care Team Description 12/03/2024 1:30 PM EDT Office Visit [facility] [address] [place], [place] [id number] Palak Martinez DMD Known health problems: none (Primary Dx) 11/24/2024 Telephone [facility] [address] [place] [address] Anabela Arredondo from Last 3 Months Social History Tobacco Use Types Packs/Day Years Used Date Smoking Tobacco: Never Assessed Comments Unknown Sex and Gender Information Value Date Recorded Sex Assigned at Female 05/28/2022 10:25 AM EDT Legal Sex Female 10:25 AM EDT Gender Identity Female 05/28/2022 10:25 AM EDT Sexual Orientation Straight 05/28/2022 10 :25 AM EDT Plan of Treatment Health Maintenance Due Date Last Done Comments Dental Oral Exam 1995 Dental Prophylaxis 1995 Dental X-Ray: Bitewings 1995 Dental X-Ray: Full Mouth 1995 Depression Screening 1995 HIV Screening 1995 Lipid Panel 1995 SDOH Screening 1995 Alcohol/Substance Use Screening 2007 Tobacco Screening 2007 Family Planning (PISQ) 2010 Hepatitis C Screening 2013 Zoster Vaccines (1 of 2) 2014 Pneumococcal Vaccine: Pediatrics (0 to 5 Years) and At-Risk Patients (6 to 49) Years) (2 of 2 - PCV) 05/26/2014 05/26/2013 Pap Smear 02/02/2016 COVID-19 Vaccine (2 - Moderna risk series) 07/19/2021 06/21/2021 Influenza Vaccine (#1) 2024 , 08/26/2023, 05/11/2020, Additional history exists DTaP/Tdap/Td Vaccines (9 - Td or Tdap) 11/07/2033 11/08/2023, 12/23/2019, 08/06/2018, Additional history exists RSV Patients and Patients Aged 60 years or older (1 - 1-dose 75+ series) 2070 Hepatitis B Vaccines Completed 1995, 1995, 1995 HIB Vaccines Completed 07/21/1996, 11/1995, 1995, Additional history exists IPV Vaccines Completed 04/21/1998, 06/29, 1995, Additional history exists Meningococcal Vaccine Aged Out 09/13/2008 No deedee charles eligible based on patient's age to complete this topic HPV Vaccines Completed 09/19/2009, 04/28, 09/13/2008 Hepatitis A Vaccines Aged Out No long er eligible based on patient's age to complete this topic RSV under 20 months Aged Out No longe r eligible based on patient's age to complete this topic Rotavirus Vaccines Aged Out No longer eligible based on patient's age to complete this topic Procedures Procedure Name Priority Date/Time Associated Diagnosis Comments NO CHARGE, UNSPECIFIED ORTHODONTIC PROCEDURE, BY REPORT Routine 12/03/2024 1:30 PM EDT from Last 3 Months Insurance [facility] MEDICAID STAND ADULT # [address] [place] [address] # [address] [place] [address] # [address] [place] [address] # [address] [place] [address]
--- OUTSIDE RECORDS SUMMARY | 2024-12-08 12:37 | XMS_ITS | Encounter Summary ---
Author Organization [employer] [facility] Address [address] [facility] 7 [place] [address] Care Team Providers Care Customer Service Manager Name Role Phone Unavailable Primary Care Provider Unavailabl e Reason for Visit * Reason Comments Orthodontics Encounter Details Date Type Department Care Team ([facility] st Contact Info) Description 12/03/2024 1:30 PM EDT Office Visit [facility] [address] [place] [address] Palak Martinez DMD [address] [place], [place] [phone] Known health problems: none (Primary Dx) Social History Tobacco Use Types Packs/Day Years Used Date Smoking Tobacco: Never Assessed Comments Unknown Sex and Gender Information Value Date Recorded Sex Assigned at Female 05/28/2022 10:25 AM EDT Legal Sex Female 10:25 AM EDT Gender Identity Female 05/28/2022 10:25 AM EDT Sexual Orientation Straight 05/28/2022 10 :25 AM EDT documented as of this encounter Progress Notes * Palak Martinez DMD - 12/03/2024 1:30 PM EDT Time Out Name and verified with patient on Timeout Date: 12/03/24 (ortho), Timeout Time: 1335 by Palak Martinez DMD. Confirmed site with parent/guardian, provider and assistant federal public defender Anabela by highlighting chart, confirming in patient mouth and on the patients x-rays for the following procedure: ortho Georgina Peterson is a 29 y.o. female and presents with patient for impressions. Medical History Past Medical History: Diagnosis Date Acid reflux ADHD Anemia Cancer (CMS/HCC) Heart problem No current outpatient medications on file. Allergies as of 12/03/2024 (No Known Allergies) Dental procedures in this visit [id number] - NO CHARGE, UNSPECIFIED ORTHODONTIC PROCEDURE, BY REPORT (Completed) Service provider: Palak Martinez DMD Billing provider: Palak Martinez DMD Patient was debonded in 2019. Patient lost the retainers in 2019. Would like replacements. Informedpatient that new retainers are only going to space from opening, it will not reclose space. Patient goes to [facility] in [place], just went this morning for a cleaning. Upper and Lower Itero impression and photos taken for replacement retainers. [place]: deliver replacement retainers after PA approval. documented in this encounter Plan of Treatment Scheduled Orders Name Type Priority Associated Diagnoses Orde r Schedule REPL OF LOST/BROKEN RETAINER - MAX Dental Routine [address] arting 12/03/2024 REPL OF LOST/BROKEN RETAINER - SAPPHIRE Dental Routine [address] arting 12/03/2024 documented as of this encounter Procedures Procedure Name Priority Date/Time Associated Diagnosis Comments NO CHARGE, UNSPECIFIED ORTHODONTIC PROCEDURE, BY REPORT Routine 12/03/2024 1:30 PM EDT documented in this encounter Visit Diagnoses Diagnosis Known health problems: none- Primary documented in this encounter
== END 2024-12-08 12:15 | disposition home or self-care (01) ==
LOC: HO.HBST 11:10
PROVIDERS: PCP Family Medicine; Visit Provider Counselor Mental Health
DX: F53.0 Postpartum depression (principal); Z71.89 Other specified counseling; Z72.4 Inappropriate diet and eating habits
CPT/HCPCS: 90834

== ENCOUNTER → 2024-12-08 11:10 | Outpatient (BNVA) | payer OTHER, SELFPAY | PROVIDERS: PCP Family Medicine; Visit Provider Counselor Mental Health ==

== ENCOUNTER 2024-12-10 09:38 | Day surgery (SDC) | payer OTHER, SELFPAY ==
--- OUTSIDE RECORDS SUMMARY | 2024-11-03 17:25 | XMS_ITS | Encounter Summary ---
Author Organization [facility] Address [address] [place] [address] Care Team Providers Care Soda Clerk Name Role Phone Olena Price DO Primary Care Pro vider Unavailable Cristiane Jackson MD Primary Care Provider Unav ailable Olena Price DO Primary Care Pro vider Unavailable Mani Rose MD Primary Care Provider + Mani Rose MD Primary Care Provider + Encounter Details Date Type Department Care Team Description 10/19/2016 Hospital Medical Records [address] [place] [id number] Aaron Juarez Social History Tobacco Use Types Packs/Day Years Used Date Smoking Tobacco: Never Cigarettes Qu it: 08/12/2007 Smokeless Tobacco: Never Comments:mom quit smoking Alcohol Use Standard Drinks/Week Comments No 0 (1 standard drink = 0.6 oz pur e alcohol) occ, none recently Alcohol Habits Answer Date Recorded How often do you have a drink containing alcohol ? Never 09/07/2019 How many drinks containing a lcohol do you have on a typical day when you are drinking? Not asked How often do you have six or more drinks on one occasion? Not asked Sex Assigned at Date Recorded Not on file documented as of this encounter Plan of Treatment Not on file documented as of this encounter Visit Diagnoses Not on filedocumented in this encounter Care Teams Soda Clerk Relationship Specialty Start Date End Date Olena Price DO PCP - General Internal Medicine 09/15/13 10/29/17 Cristiane Jackson MD PCP - General Pediatrics 10/30/17 12/04/17 Olena Price DO PCP - General Internal Medicine 12/05/17 01/23/22 Mani Rose MD [address] [place] [phone] PCP - General Internal Medicine 02/12/22 Mani Rose MD [address] [place] [phone] PCP - General Internal Medicine 01/24/22 02/11/22 documented as of this encounter
--- OUTSIDE RECORDS SUMMARY | 2024-11-03 17:25 | XMS_ITS | Encounter Summary ---
Author Organization [facility] Address [address] [place] [address] Care Team Providers Care Liner Worker Name Role Phone Olena Price DO Primary Care Pro vider Unavailable Mani Rose MD Primary Care Provider + Mani Rose MD Primary Care Provider + Encounter Details Date Type Department Care Team Description 12/01/2019 [facility] Trimmer Report Medical Records [address] [place] [id number] [address] Forbes Np Social History Tobacco Use Types Packs/Day Years [...] on filedocumented in this encounter Care Teams Liner Worker Relationship Specialty Start Date End Date Olena Price DO PCP - General Internal Medicine 12/05/17 01/23/22 Mani Rose MD [address] [place] [address] PCP - General Internal Medicine 02/12/22 Mani Rose MD [address] [place] [id number] PCP - General Internal Medicine 01/24/22 02/11/22 documented as of this encounter
--- OUTSIDE RECORDS SUMMARY | 2024-11-03 17:25 | XMS_ITS | Encounter Summary ---
Author Organization [facility] Address [address] [place] [address] Care Team Providers Care Medical Leader Name Role Phone Olena Price DO Primary Care Pro vider Unavailable Cristiane Jackson MD Primary Care Provider Unav ailable Olena Price DO Primary Care Pro vider Unavailable Mani Rose MD Primary Care Provider + Mani Rose MD Primary Care Provider + Encounter Details Date Type Department Care Team Description 08/09/2016 Hospital Medical Records [address] [place] [address] Alexis Reyes MD Social History Tobacco Use Types Packs/Day Years [...] on filedocumented in this encounter Care Teams Medical Leader Relationship Specialty Start Date End Date Olena Price DO PCP - General Internal Medicine 09/15/13 10/29/17 Cristiane Jackson MD PCP - General Pediatrics 10/30/17 12/04/17 Olena Price DO PCP - General Internal Medicine 12/05/17 01/23/22 Mani Rose MD [address] [place] [address] PCP - General Internal Medicine 02/12/22 Mani Rose MD [address] [place] [phone] PCP - General Internal Medicine 01/24/22 02/11/22 documented as of this encounter
--- OUTSIDE RECORDS SUMMARY | 2024-11-03 17:25 | XMS_ITS | Encounter Summary ---
Author Organization [facility] Address [address] [place] [address] Care Team Providers Care Hybrid Derivatives Trader Name Role Phone Olena Price DO Primary Care Pro vider Unavailable Cristiane Jackson MD Primary Care Provider Unav ailable Olena Price DO Primary Care Pro vider Unavailable Mani Rose MD Primary Care Provider + Mani Rose MD Primary Care Provider + Encounter Details Date Type Department Care Team Description 07/09/2016 Hospital Medical Records [address] [place] [address] Social History Tobacco Use Types Packs/Day Years [...] on filedocumented in this encounter Care Teams Hybrid Derivatives Trader Relationship Specialty Start Date End Date Olena Price DO PCP - General Internal Medicine 09/15/13 10/29/17 Cristiane Jackson MD PCP - General Pediatrics 10/30/17 12/04/17 Olena Price, DO PCP - General Internal Medicine 12/05/17 01/23/22 Mani Rose MD [address] [place] [address] [id number] PCP - General Internal Medicine 02/12/22 Mani Rose MD [address] [place] [address] PCP - General Internal Medicine 01/24/22 02/11/22 documented as of this encounter
--- OUTSIDE RECORDS SUMMARY | 2024-11-03 17:25 | XMS_ITS | Encounter Summary ---
Author Organization [facility] Address [address] [place] [address] Care Team Providers Care Slots Manager Name Role Phone Olena Price DO Primary Care Pro vider Unavailable Cristiane Jackson MD Primary Care Provider Unav ailable Olena Price DO Primary Care Pro vider Unavailable Main Rose MD Primary Care Provider + Mani Rose MD Primary Care Provider + Encounter Details Date Type Department Care Team Description 08/06/2016 Hospital Medical Records [address] [place] [address] Social History Tobacco Use Types Packs/Day Years [...] on filedocumented in this encounter Care Teams Slots Manager Relationship Specialty Start Date End Date Olena Price DO PCP - General Internal Medicine 09/15/13 10/29/17 Cristiane Jackson MD PCP - General Pediatrics 10/30/17 12/04/17 Olena Price, DO PCP - General Internal Medicine 12/05/17 01/23/22 Mani Rose MD [address] [place] [address] [id number] PCP - General Internal Medicine 02/12/22 Mani Rose MD [address] [place] [phone] PCP - General Internal Medicine 01/24/22 02/11/22 documented as of this encounter
--- OUTSIDE RECORDS SUMMARY | 2024-11-03 17:25 | XMS_ITS | Encounter Summary ---
Author Organization [facility] Address [address] [place] [address] Care Team Providers Care Processing Inspector Name Role Phone Olena Price DO Primary Care Pro vider Unavailable Cristiane Jackson MD Primary Care Provider Unav ailable Olena Price DO Primary Care Pro vider Unavailable Mani Rose MD Primary Care Provider + Mani Rose MD Primary Care Provider + Encounter Details Date Type Department Care Team Description 06/26/2016 Hospital Medical Records [address] [place] [address] Social History Tobacco Use Types Packs/Day Years [...] on filedocumented in this encounter Care Teams Processing Inspector Relationship Specialty Start Date End Date Olena Price DO PCP - General Internal Medicine 09/15/13 10/29/17 Cristiane Jackson MD PCP - General Pediatrics 10/30/17 12/04/17 Olena Price, DO PCP - General Internal Medicine 12/05/17 01/23/22 Mani Rose MD [address] [place] [address] [id number] PCP - General Internal Medicine 02/12/22 Mani Rose MD [address] [place] [address] PCP - General Internal Medicine 01/24/22 02/11/22 documented as of this encounter
--- OUTSIDE RECORDS SUMMARY | 2024-11-03 17:25 | XMS_ITS | Encounter Summary ---
Author Organization [facility] Address [address] [place] [address] Care Team Providers Care Data Processing Consultant Name Role Phone Olena Price DO Primary Care Pro vider Unavailable Cristiane Jackson MD Primary Care Provider Unav ailable Olena Price DO Primary Care Pro vider Unavailable Mani Rose MD Primary Care Provider + Mani Rose MD Primary Care Provider + Encounter Details Date Type Department Care Team Description 07/09/2016 Hospital Medical Records [address] [place] [address] Guzman Cerna Social History Tobacco Use Types Packs/Day Years [...] on filedocumented in this encounter Care Teams Data Processing Consultant Relationship Specialty Start Date End Date Olena Price DO PCP - General Internal Medicine 09/15/13 10/29/17 Cristiane Jackson MD PCP - General Pediatrics 10/30/17 12/04/17 Olena Price DO PCP - General Internal Medicine 12/05/17 01/23/22 Mani Rose MD [address] [place] [phone] PCP - General Internal Medicine 02/12/22 Mani Rose MD [address] [place] [phone] PCP - General Internal Medicine 01/24/22 02/11/22 documented as of this encounter
--- OUTSIDE RECORDS SUMMARY | 2024-11-03 17:25 | XMS_ITS | Encounter Summary ---
Author Organization [facility] Address [address] [place] [address] Care Team Providers Care Rotary Adjuster Name Role Phone Eveline Parker MD Primary Care Provider Unavailab Medel, Pcp Primary Care Provider Eveline Klein MD Primary Care Provider Unavailab le Krystal Fraireo, Olena DO Primary Care Pro vider Unavailable Cristiane Jackson MD Primary Care Provider Unav ailable Krystal Hirsch, Olena DO Primary Care Pro vider Unavailable Mani Rose MD Primary Care Provider + Mani Rose MD Primary Care Provider + Encounter Details Date Type Department Care Team Description 05/09/2011 [facility] Proxy Form Medical Records [address] [place] [address] 68151 Abstract, Provider Social History Tobacco Use Types Packs/Day Years Used Date Smoking Tobacco: Never Cigarettes Qu it: 08/12/2007 Smokeless Tobacco: Never Comments:mom quit smoking Alcohol Use Standard Drinks/Week Comments Not Asked 0 (1 standard drink = 0.6 oz pur e alcohol) Alcohol Habits Answer Date Recorded How often [...] on filedocumented in this encounter Care Teams Rotary Adjuster Relationship Specialty Start Date End Date Eveline Parker MD PCP - General 06/11/07 04/06/13 [facility], Pcp PCP - General Internal Medicine 04/07/13 06/21/13 Eveline Parker MD PCP - General Pediatrics 06/22/13 09/14/13 Olena Price DO PCP - General Internal Medicine 09/15/13 10/29/17 Cristiane Jackson MD PCP - General Pediatrics 10/30/17 12/04/17 Olena Price DO PCP - General Internal Medicine 12/05/17 01/23/22 Mani Rose MD [address] [place] [address] [phone] PCP - General Internal Medicine 02/12/22 Mani Rose MD [address] [place] [address] [phone] PCP - General Internal Medicine 01/24/22 02/11/22 documented as of this encounter
--- OUTSIDE RECORDS SUMMARY | 2024-11-03 17:25 | XMS_ITS | Encounter Summary ---
Author Organization [facility] Address [address] [place] [address] Care Team Providers Care Operating Room Tech Name Role Phone Olena Price DO Primary Care Pro vider Unavailable Mani Rose MD Primary Care Provider + Mani Rose MD Primary Care Provider + Encounter Details Date Type Department Care Team Description 08/22/2018 Telephone OBGYN - [place] [address] [place] [id number] Christine Love MD Social History Tobacco Use Types Packs/Day Years Used Date Smoking Tobacco: Never Cigarettes Qu it: 08/12/2007 Smokeless Tobacco: Never Comments:mom quit smoking Alcohol Use Standard Drinks/Week Comments Yes 0 (1 standard drink = 0.6 oz [...] on file documented as of this encounter Miscellaneous Notes * Telephone Encounter - Xiomy Lackey M.A. - 08/22/2018 1:12 PM EST Spoke with adult medicine, her ekg is booked on Aug 29 9 am. Spoke with Yvonne at the lab, worksheet she has states it does need a prior auth. Patient will need to call insurance and find out. She will call her insurance and call us back to let us know. CMB * Telephone Encounter - THAO Boyd, RN - 08/22/2018 12:58 PM EST MD Devonte Mares Heel Attacher Wood Triage ? Please schedule for EKG in Adult Medicine. Also please schedule for NST 30 min before next visit 09/03/18. Also can you inquire with lab into the prior authorization needed before serum Fragile X DNA analysis can be completed. Thanks! documented in this encounter Plan of Treatment Not on file documented as of this encounter Visit Diagnoses Not on filedocumented in this encounter Care Teams Operating Room Tech Relationship Specialty Start Date End Date Olena Price DO PCP - General Internal Medicine 12/05/17 01/23/22 Mani Rose MD [address] [place] [address] 14596 PCP - General Internal Medicine 02/12/22 Mani Rose MD [address] [place] [address] [phone] PCP - General Internal Medicine 01/24/22 02/11/22 documented as of this encounter
--- OUTSIDE RECORDS SUMMARY | 2024-11-03 17:25 | XMS_ITS | Encounter Summary ---
Author Organization [facility] Address [address] [place] [address] Care Team Providers Care Archives Technician Name Role Phone Olena Price DO Primary Care Pro vider Unavailable Cristiane Jackson MD Primary Care Provider Unav ailable Olena Price DO Primary Care Pro vider Unavailable Mani Rose MD Primary Care Provider + Mani Rose MD Primary Care Provider + Encounter Details Date Type Department Care Team Description 05/26/2016 Hospital Medical Records [address] [place] [address] Olena Price DO Social History Tobacco Use Types Packs/Day Years [...] on filedocumented in this encounter Care Teams Archives Technician Relationship Specialty Start Date End Date Olena Price DO PCP - General Internal Medicine 09/15/13 10/29/17 Cristiane Jackson MD PCP - General Pediatrics 10/30/17 12/04/17 Olena Price DO PCP - General Internal Medicine 12/05/17 01/23/22 Mani Rose MD [address] [place] [address] [phone] PCP - General Internal Medicine 02/12/22 Mani Rose MD [address] [place] [address] 01020 PCP - General Internal Medicine 01/24/22 02/11/22 documented as of this encounter
--- OUTSIDE RECORDS SUMMARY | 2024-11-03 17:25 | XMS_ITS | Encounter Summary ---
Author Organization [facility] Address [address] [place] [address] Care Team Providers Care National Guard Member Name Role Phone Olena Price DO Primary Care Pro vider Unavailable Mani Rose MD Primary Care Provider + Mani Rose MD Primary Care Provider + Encounter Details Date Type Department Care Team Description 09/01/2018 Tableau Analyst Report Medical Records [address] [place] [address]344 Ramesh Aguillon Social History Tobacco Use Types Packs/Day Years [...] on filedocumented in this encounter Care Teams National [employer] Member Relationship Specialty Start Date End Date Olena Price DO PCP - General Internal Medicine 12/05/17 01/23/22 Mani Rose MD [address] [place] [address] 13748 PCP - General Internal Medicine 02/12/22 Mani Rose MD [address] [place] [address] [phone] PCP - General Internal Medicine 01/24/22 02/11/22 documented as of this encounter
--- OUTSIDE RECORDS SUMMARY | 2024-11-03 17:25 | XMS_ITS | Encounter Summary ---
Author Organization [facility] Address [address] [place] [address] Care Team Providers Care Horseback Riding Instructor Name Role Phone Olena Price DO Primary Care Pro vider Unavailable Cristiane Jackson MD Primary Care Provider Unav ailable Olena Price DO Primary Care Pro vider Unavailable Mani Rose MD Primary Care Provider + Mani Rose MD Primary Care Provider + Encounter Details Date Type Department Care Team Description 08/16/2016 Heeler Machine Report Medical Records [address] [place] [address] Ramesh Aguillon Social History Tobacco Use Types [...] on filedocumented in this encounter Care Teams Horseback Riding Instructor Relationship Specialty Start Date End Date Olena Price DO PCP - General Internal Medicine 09/15/13 10/29/17 Cristiane Jakcson MD PCP - General Pediatrics 10/30/17 12/04/17 KraOlena Yañez DO PCP - General Internal Medicine 12/05/17 01/23/22 Mani Rose MD [address] [place] [address] [phone] PCP - General Internal Medicine 02/12/22 Mani Rose MD [address] [place] [address] [phone] PCP - General Internal Medicine 01/24/22 02/11/22 documented as of this encounter
--- OUTSIDE RECORDS SUMMARY | 2024-11-03 17:25 | XMS_ITS | Encounter Summary ---
Author Organization [facility] Address [address] [place] [address] Care Team Providers Care Machine Quilt Stuffer Name Role Phone Olena Price DO Primary Care Pro vider Unavailable Mani Rose MD Primary Care Provider + Mani Rose MD Primary Care Provider + Encounter Details Date Type Department Care Team Description 08/04/2019 Release of Information Medical Records [address] [place] [address] 20002 Abstract, Provider Social History Tobacco Use Types [...] on file documented as of this encounter Nursing Notes * Mia Vaughn - 08/04/2019 10:22 AM EST AUTHORIZATION TO OBTAIN RECORDS MAILED TO [facility]. documented in this encounter Plan of Treatment Not on file documented as of this encounter Visit Diagnoses Not on filedocumented in this encounter Care Teams Machine Quilt Stuffer Relationship Specialty Start Date End Date [place] Colasacco, Olena, DO PCP - General Internal Medicine 12/05/17 01/23/22 Mani Rose MD [address] [place] [address] PCP - General Internal Medicine 02/12/22 Mani Rose MD [address] [place] [address] 47370 PCP - General Internal Medicine 01/24/22 02/11/22 documented as of this encounter
--- OUTSIDE RECORDS SUMMARY | 2024-11-03 17:25 | XMS_ITS | Encounter Summary ---
Author Organization [facility] Address [address] [place] [address] Care Team Providers Care Mat Man Name Role Phone Olena Price DO Primary Care Pro vider Unavailable Mani Rose MD Primary Care Provider + Mani Rose MD Primary Care Provider + Encounter Details Date Type Department Care Team Description 04/04/2018 Zika Virus Medical Records [address] [place] [address] 69998 Abstract, Provider Social History Tobacco Use Types [...] on filedocumented in this encounter Care Teams Mat Man Relationship Specialty Start Date End Date Olena Price DO PCP - General Internal Medicine 12/05/17 01/23/22 Mani Rose MD [address] [place] [address] [phone] PCP - General Internal Medicine 02/12/22 Mani Rose MD [address] [place] [address] [phone] PCP - General Internal Medicine 01/24/22 02/11/22 documented as of this encounter
--- OUTSIDE RECORDS SUMMARY | 2024-11-03 17:25 | XMS_ITS | Encounter Summary ---
Author Organization [facility] Address [address] [place] [address] Care Team Providers Care Engineering Technology Instructor Name Role Phone Olena Price DO Primary Care Pro vider Unavailable Cristiane Jackson MD Primary Care Provider Unav ailable Olena Price DO Primary Care Pro vider Unavailable Mani Rose MD Primary Care Provider + Mani Rose MD Primary Care Provider + Encounter Details Date Type Department Care Team Description 09/28/2016 Chicken Fancier Report Medical Records [address] [place] [address] 9[address] Ramesh Aguillon Social History Tobacco Use Types [...] on filedocumented in this encounter Care Teams Engineering Technology Instructor Relationship Specialty Start Date End Date Olena Price DO PCP - General Internal Medicine 09/15/13 10/29/17 Cristiane Jackson MD PCP - General Pediatrics 10/30/17 12/04/17 KraOlena Yañez DO PCP - General Internal Medicine 12/05/17 01/23/22 Mani Rose MD [address] [place] [address] [phone] PCP - General Internal Medicine 02/12/22 Mani Rose MD [address] [place] [address] [phone] PCP - General Internal Medicine 01/24/22 02/11/22 documented as of this encounter
--- OUTSIDE RECORDS SUMMARY | 2024-11-03 17:25 | XMS_ITS | Encounter Summary ---
Author Organization [facility] Address [address] [place] [address] Care Team Providers Care Gear Coding Machine Operator Name Role Phone Olena Price DO Primary Care Pro vider Unavailable Mani Rose MD Primary Care Provider + Mani Rose MD Primary Care Provider + Encounter Details Date Type Department Care Team Description 10/05/2020 Old Medical Records Medical Records [address] [place] [address]103 Abstract, Provider Social History Tobacco Use Types [...] on filedocumented in this encounter Care Teams Gear Coding Machine Operator Relationship Specialty Start Date End Date Olena Price DO PCP - General Internal Medicine 12/05/17 01/23/22 Mani Rose MD [address] [place] [address] [phone] PCP - General Internal Medicine 02/12/22 Mani Rose MD [address] [place] [address] [phone] PCP - General Internal Medicine 01/24/22 02/11/22 documented as of this encounter
--- OUTSIDE RECORDS SUMMARY | 2024-11-03 17:25 | XMS_ITS | Encounter Summary ---
Author Organization [facility] Address [address] [place] [address] Care Team Providers Care Horse Trekking Guide Name Role Phone Olena Price DO Primary Care Pro vider Unavailable Mani Rose MD Primary Care Provider + Mani Rose MD Primary Care Provider + Encounter Details Date Type Department Care Team Description 08/04/2018 Luggage Liner Report Medical Records [address] [place] [address] 24067 Abstract, Provider Social History Tobacco Use Types [...] on filedocumented in this encounter Care Teams Horse Trekking Guide Relationship Specialty Start Date End Date Olena Price DO PCP - General Internal Medicine 12/05/17 01/23/22 Mani Rose MD [address] [place] [address] 27128 PCP - General Internal Medicine 02/12/22 Mani Rose MD [address] [place] [address] 18625 PCP - General Internal Medicine 01/24/22 02/11/22 documented as of this encounter
--- OUTSIDE RECORDS SUMMARY | 2024-11-03 17:25 | XMS_ITS | Encounter Summary ---
Author Organization [facility] Address [address] [place] [address] Care Team Providers Care Bottle Washer Name Role Phone Olena Price DO Primary Care Pro vider Unavailable Cristiane Jackson MD Primary Care Provider Unav ailable Olena Price DO Primary Care Pro vider Unavailable Mani Rose MD Primary Care Provider + Mani Rose MD Primary Care Provider + Encounter Details Date Type Department Care Team Description 08/07/2016 Hospital Medical Records [address] [place] [address] 25150 Ramesh Aguillon Social History Tobacco Use Types [...] on filedocumented in this encounter Care Teams Bottle Washer Relationship Specialty Start Date End Date Olena Price DO PCP - General Internal Medicine 09/15/13 10/29/17 Cristiane Jackson MD PCP - General Pediatrics 10/30/17 12/04/17 Olena Price DO PCP - General Internal Medicine 12/05/17 01/23/22 Mani Rose MD [address] [place] [address] [phone] PCP - General Internal Medicine 02/12/22 Mani Rose MD [address] [place] [address] [phone] PCP - General Internal Medicine 01/24/22 02/11/22 documented as of this encounter
--- OUTSIDE RECORDS SUMMARY | 2024-11-03 17:25 | XMS_ITS | Encounter Summary ---
Author Organization [facility] Address [address] [place] [address] Care Team Providers Care Motor Express Clerk Name Role Phone Mani Rose MD Primary Care Provider + Encounter Details Date Type Department Care Team Description 08/31/2022 Telephone Adult Medicine [facility] [address] [place] [address] [phone] Mani Rose MD [address] [place] [address] [phone] Social History Tobacco Use Types Packs/Day Years [...] Assigned at Date Recorded Not on file COVID-19 Exposure Response Date Recorded In the last 10 days, have yo u been in contact with someone who was confirmed or suspected to have Coronavirus/COVID-19? No / Unsure 08/31/2022 3:39 PM EST documented as of this encounter Plan of Treatment Not on file documented as of this encounter Visit Diagnoses Not on filedocumented in this encounter Care Teams Motor Express Clerk Relationship Specialty Start Date End Date Mani Rose MD [address] [place] [address] 42130 PCP - General Internal Medicine 02/12/22 documented as of this encounter
--- OUTSIDE RECORDS SUMMARY | 2024-11-03 17:25 | XMS_ITS | Encounter Summary ---
Author Organization [facility] Address [address] [place] [address] Care Team Providers Care Grounds Maintenance Manager Name Role Phone Eveline Parker MD Primary Care Provider Unavailab jocelyn Community, Pcp Primary Care Provider Eveline Klein MD Primary Care Provider Unavailab le Krystal Colgracielao, Olena DO Primary Care Pro vider Unavailable Cristiane Jackson MD Primary Care Provider Unav ailable Olena Price DO Primary Care Pro vider Unavailable Mani Rose MD Primary Care Provider + Mani Rose MD Primary Care Provider + Reason for Visit * Reason Onset Date Comments DCF 04/15/2012 Encounter Details Date Type Department Care Team Description 04/15/2012 Telephone Pediatrics - [address] [address] Eveline Parker MD DCF Social History Tobacco Use Types Packs/Day Years [...] encounter Miscellaneous Notes * Telephone Encounter - Montserrat Waldrop R.N. - 04/15/2012 11:27 AM EDT Information given -fyi * Telephone Encounter - Genevieve Bustillo - 04/15/2012 10:31 AM EDT Name and title of caller: preston from [facility] calling ? Up to date any concerns : 1995 Age: 17 yr. Is this an active 51A case: Yes. Case is currently active. Message forwarded to nurse to provide information. Message forwarded to nurse for follow up documented in this encounter Plan of Treatment Not on file documented as of this encounter Visit Diagnoses Not on filedocumented in this encounter Care Teams Grounds Maintenance Manager Relationship Specialty Start Date End Date Eveline Parker MD PCP - General 06/11/07 04/06/13 [facility] PCP - General Internal Medicine 04/07/13 06/21/13 Eveline Parker MD PCP - General Pediatrics 06/22/13 09/14/13 Olena Price DO PCP - General Internal Medicine 09/15/13 10/29/17 Cristiane Jackson MD PCP - General Pediatrics 10/30/17 12/04/17 Olena Price DO PCP - General Internal Medicine 12/05/17 01/23/22 Mani Rose MD [address] [place] [address]8537 PCP - General Internal Medicine 02/12/22 Mani Rose MD [address] [place] [address] [phone] PCP - General Internal Medicine 01/24/22 02/11/22 documented as of this encounter
--- OUTSIDE RECORDS SUMMARY | 2024-11-03 17:25 | XMS_ITS | Encounter Summary ---
Author Organization [facility] Address [address] [place] [address] Care Team Providers Care Catch Basin Cleaner Name Role Phone Olena Price DO Primary Care Pro vider Unavailable Mani Rose MD Primary Care Provider + Mani Rose MD Primary Care Provider + Encounter Details Date Type Department Care Team Description 06/05/2019 Old Medical Records Medical Records [address] [place] [address]370 Abstract, Provider Social History Tobacco Use Types [...] on filedocumented in this encounter Care Teams Catch Basin Cleaner Relationship Specialty Start Date End Date Olena Price DO PCP - General Internal Medicine 12/05/17 01/23/22 Mani Rose MD [address] [place] [address] 48677 PCP - General Internal Medicine 02/12/22 Mani Rose MD [address] [place] [address] 78251 PCP - General Internal Medicine 01/24/22 02/11/22 documented as of this encounter
--- OUTSIDE RECORDS SUMMARY | 2024-11-03 17:25 | XMS_ITS | Encounter Summary ---
Author Organization [facility] Address [address] [place] [address] Care Team Providers Care Mica Layer Name Role Phone Olena Price DO Primary Care Pro vider Unavailable Cristiane Jackson MD Primary Care Provider Unav ailable Olena Price DO Primary Care Pro vider Unavailable Mani Rose MD Primary Care Provider + Mani Rose MD Primary Care Provider + Encounter Details Date Type Department Care Team Description 10/18/2016 Evaluator Transfer Students Report Medical Records [address] [place] [address] 15708 Ramesh Aguillon Social History Tobacco Use Types [...] on filedocumented in this encounter Care Teams Mica Layer Relationship Specialty Start Date End Date Olena Price DO PCP - General Internal Medicine 09/15/13 10/29/17 Cristiane Jackson MD PCP - General Pediatrics 10/30/17 12/04/17 KraOlena Yañez DO PCP - General Internal Medicine 12/05/17 01/23/22 Mani Rose MD [address] [place] [address] [phone] PCP - General Internal Medicine 02/12/22 Mani Rose MD [address] [place] [address] [phone] PCP - General Internal Medicine 01/24/22 02/11/22 documented as of this encounter
--- OUTSIDE RECORDS SUMMARY | 2024-11-03 17:25 | XMS_ITS | Encounter Summary ---
Author Organization [facility] Address [address] [place] [address] Care Team Providers Care Flavorings Compounder Name Role Phone Olena Price DO Primary Care Pro vider Unavailable Cristiane Jackson MD Primary Care Provider Unav ailable Olena Price DO Primary Care Pro vider Unavailable Mani Rose MD Primary Care Provider + Mani Rose MD Primary Care Provider + Encounter Details Date Type Department Care Team Description 08/03/2016 Cutter Finisher Report Medical Records [address] [place] [address] Sarah Melton Social History Tobacco Use Types Packs/Day Years [...] on filedocumented in this encounter Care Teams Flavorings Compounder Relationship Specialty Start Date End Date Olena Price DO PCP - General Internal Medicine 09/15/13 10/29/17 Cristiane Jackson MD PCP - General Pediatrics 10/30/17 12/04/17 Olena Price DO PCP - General Internal Medicine 12/05/17 01/23/22 Mani Rose MD [address] [place] [address] [phone] PCP - General Internal Medicine 02/12/22 Mani Rose MD [address] [place] [address] [phone] PCP - General Internal Medicine 01/24/22 02/11/22 documented as of this encounter
--- OUTSIDE RECORDS SUMMARY | 2024-11-03 17:25 | XMS_ITS | Encounter Summary ---
Author Organization [facility] Address [address] [place] [address] Care Team Providers Care Body Coverer Name Role Phone Olena Price DO Primary Care Pro vider Unavailable Cristiane Jackson MD Primary Care Provider Unav ailable Olena Price DO Primary Care Pro vider Unavailable Mani Rose MD Primary Care Provider + Mani Rose MD Primary Care Provider + Encounter Details Date Type Department Care Team Description 10/15/2016 Hospital Medical Records [address] [place] [address] Abstract, Provider Social History Tobacco Use Types [...] on filedocumented in this encounter Care Teams Body Coverer Relationship Specialty Start Date End Date Olena Price DO PCP - General Internal Medicine 09/15/13 10/29/17 Cristiane Jackson MD PCP - General Pediatrics 10/30/17 12/04/17 Olena Price DO PCP - General Internal Medicine 12/05/17 01/23/22 Mani Rose MD [address] [place] [address] [phone] PCP - General Internal Medicine 02/12/22 Mani Rose MD [address] [place] [address] [phone] PCP - General Internal Medicine 01/24/22 02/11/22 documented as of this encounter
--- OUTSIDE RECORDS SUMMARY | 2024-11-03 17:25 | XMS_ITS | Encounter Summary ---
Author Organization [facility] Address [address] [place] [address] Care Team Providers Care Burlap Spreader Name Role Phone Olena Price DO Primary Care Pro vider Unavailable Cristiane Jackson MD Primary Care Provider Unav ailable Olena Price DO Primary Care Pro vider Unavailable Mani Rose MD Primary Care Provider + Mani Rose MD Primary Care Provider + Encounter Details Date Type Department Care Team Description 06/11/2016 Hot Metal Crane Operator Report Medical Records [address] [place] [address] 60098 Ramesh Aguillon Social History Tobacco Use Types [...] on filedocumented in this encounter Care Teams Burlap Spreader Relationship Specialty Start Date End Date Olena Price DO PCP - General Internal Medicine 09/15/13 10/29/17 Cristiane Jackson MD PCP - General Pediatrics 10/30/17 12/04/17 KraOlena Yañez DO PCP - General Internal Medicine 12/05/17 01/23/22 Mani Rose MD [address] [place] [address] [phone] PCP - General Internal Medicine 02/12/22 Mani Rose MD [address] [place] [address] [phone] PCP - General Internal Medicine 01/24/22 02/11/22 documented as of this encounter
--- OUTSIDE RECORDS SUMMARY | 2024-11-03 17:25 | XMS_ITS | Encounter Summary ---
Author Organization [facility] Address [address] [place] [address] Care Team Providers Care Palliative Medicine Physician Name Role Phone Olena Price DO Primary Care Pro vider Unavailable Cristiane Jackson MD Primary Care Provider Unav ailable Olena Price DO Primary Care Pro vider Unavailable Mani Rose MD Primary Care Provider + Mani Rose MD Primary Care Provider + Encounter Details Date Type Department Care Team Description 06/26/2016 Hospital Medical Records [address] [place] [address] Social History Tobacco Use Types Packs/Day Years [...] on filedocumented in this encounter Care Teams Palliative Medicine Physician Relationship Specialty Start Date End Date Olena Price DO PCP - General Internal Medicine 09/15/13 10/29/17 Cristiane Jackson MD PCP - General Pediatrics 10/30/17 12/04/17 Olena Price, DO PCP - General Internal Medicine 12/05/17 01/23/22 Mani Rose MD [address] [place] [address] [phone] PCP - General Internal Medicine 02/12/22 Mani Rose MD [address] [place] [address] [phone] PCP - General Internal Medicine 01/24/22 02/11/22 documented as of this encounter
--- OUTSIDE RECORDS SUMMARY | 2024-11-03 17:25 | XMS_ITS | Encounter Summary ---
Author Organization [facility] Address [address] [place] [address] Care Team Providers Care Stitcher Feeder Name Role Phone Eveline Parker MD Primary Care Provider Unavailab Medel, Pcp Primary Care Provider Eveline Klein MD Primary Care Provider Unavailab le Krystal FraireoOlena DO Primary Care Pro vider Unavailable Cristiane Jackson MD Primary Care Provider Unav ailable Olena Price DO Primary Care Pro vider Unavailable Mani Rose MD Primary Care Provider + Mani Rose MD Primary Care Provider + Encounter Details Date Type Department Care Team Description 09/15/2011 [facility] Medical Records [address] [place] [id number] Benjie Lafleur Social History Tobacco Use Types Packs/Day Years [...] on filedocumented in this encounter Care Teams Stitcher Feeder Relationship Specialty Start Date End Date Eveline Parker MD PCP - General 06/11/07 04/06/13 [facility], Pcp PCP - General Internal Medicine 04/07/13 06/21/13 Eveline Parker MD PCP - General Pediatrics 06/22/13 09/14/13 Olena Price DO PCP - General Internal Medicine 09/15/13 10/29/17 Cristiane Jackson MD PCP - General Pediatrics 10/30/17 12/04/17 Olena Price DO PCP - General Internal Medicine 12/05/17 01/23/22 Mani Rose MD [address] [place] [id number] PCP - General Internal Medicine 02/12/22 Mani Rose MD [address] [place] [id number] PCP - General Internal Medicine 01/24/22 02/11/22 documented as of this encounter
--- OUTSIDE RECORDS SUMMARY | 2024-11-03 17:25 | XMS_ITS | Encounter Summary ---
Author Organization [facility] Address [address] [place] [address] Care Team Providers Care Import Coordination And Production Head Name Role Phone Eveline Parker MD Primary [...] for Visit * Reason Onset Date Comments Provider Call Back 05/01/2012 Encounter Details Date Type Department Care Team Description 05/01/2012 Telephone Ophthalmology-[address] [address] Derick Trammell OD Provider Call Back Social History Tobacco Use Types Packs/Day Years [...] encounter Miscellaneous Notes * Telephone Encounter - Martita Wallace M.A. - 05/01/2012 3:57 PM EDT Glasses rx signed placed in ppu. * Telephone Encounter - Marlene Saydaharpreetyudi - 05/01/2012 3:45 PM EDT Patient's mother calling to request a copy of the patient's prescription. She would like it place in PPU documented in this encounter Plan of Treatment Not on file documented as of this encounter Visit Diagnoses Not on filedocumented in this encounter Care Teams Import Coordination And Production Head Relationship Specialty Start Date End Date Eveline Parker MD PCP - General 06/11/07 04/06/13 [facility], Pcp PCP - General Internal Medicine 04/07/13 06/21/13 Eveline Parker MD PCP - General Pediatrics 06/22/13 09/14/13 Olena Price DO PCP - General Internal Medicine 09/15/13 10/29/17 Cristiane Jackson MD PCP - General Pediatrics 10/30/17 12/04/17 Olena Price DO PCP - General Internal Medicine 12/05/17 01/23/22 Mani Rose MD [address] [place] [id number] PCP - General Internal Medicine 02/12/22 Mani Rose MD [address] [place] [id number] PCP - General Internal Medicine 01/24/22 02/11/22 documented as of this encounter
--- OUTSIDE RECORDS SUMMARY | 2024-11-03 17:25 | XMS_ITS | Encounter Summary ---
Author Organization [facility] Address [address] [place] [address] Care Team Providers Care Production Recovery Operator Name Role Phone Olena Price DO Primary Care Pro vider Unavailable Mani Rose MD Primary Care Provider + Mani Rose MD Primary Care Provider + Encounter Details Date Type Department Care Team Description 08/04/2018 Elevator Tender Report Medical Records [address] [place] [id number] Social History Tobacco Use Types Packs/Day Years [...] on filedocumented in this encounter Care Teams Production Recovery Operator Relationship Specialty Start Date End Date Olena Price DO PCP - General Internal Medicine 12/05/17 01/23/22 Mani Rose MD [address] [place] [id number] PCP - General Internal Medicine 02/12/22 Mani Rose MD [address] [place] [id number] PCP - General Internal Medicine 01/24/22 02/11/22 documented as of this encounter
--- OUTSIDE RECORDS SUMMARY | 2024-11-03 17:25 | XMS_ITS | Encounter Summary ---
Author Organization [facility] Address [address] [place] [address] Care Team Providers Care Drop Machine Operator Name Role Phone Olena Price DO Primary Care Pro vider Unavailable Cristiane Jackson MD Primary Care Provider Unav ailable Olena Price DO Primary Care Pro vider Unavailable Mani Rose MD Primary Care Provider + Mani Rose MD Primary Care Provider + Encounter Details Date Type Department Care Team Description 08/19/2017 Warp Clamper Report Medical Records [address] [place] [id number] Ramesh Aguillon Social History Tobacco Use Types Packs/Day Years Used Date Smoking Tobacco: Never Cigarettes Qu it: 08/12/2007 Smokeless Tobacco: Never Comments:mom quit smoking Alcohol Use Standard Drinks/Week Comments No 0 (1 standard drink = 0.6 oz pur e alcohol) occ Alcohol Habits Answer Date Recorded How often [...] on filedocumented in this encounter Care Teams Drop Machine Operator Relationship Specialty Start Date End Date Olena Price DO PCP - General Internal Medicine 09/15/13 10/29/17 Cristiane Jackson MD PCP - General Pediatrics 10/30/17 12/04/17 Olena Price DO PCP - General Internal Medicine 12/05/17 01/23/22 Mani Rose MD [address] [place] [phone] PCP - General Internal Medicine 02/12/22 Mani Rose MD [address] [place] [phone] PCP - General Internal Medicine 01/24/22 02/11/22 documented as of this encounter
--- OUTSIDE RECORDS SUMMARY | 2024-11-03 17:26 | XMS_ITS | Encounter Summary ---
Author Organization [facility] Address [address] [place] [address] Care Team Providers Care Airline Reservation Agent Name Role Phone Eveline Parker MD Primary Care Provider Unavailab le Olena Price DO Primary Care Pro vider Unavailable Cristiane Jackson MD Primary Care Provider Unav ailable Olena Price DO Primary Care Pro vider Unavailable Mani Rose MD Primary Care Provider + Mani Rose MD Primary Care Provider + Encounter Details Date Type Department Care Team Description 07/01/2013 Orders Only Adult Medicine [address] [address] Olena Price DO Vitamin d deficiency; Dyslipidemia Social History Tobacco Use Types Packs/Day Years [...] documented as of this encounter Visit Diagnoses Diagnosis Vitamin D deficiency Unspecified vitamin D deficiency Dyslipidemia Other and unspecified hyperlipidemia documented in this encounter Care Teams Airline Reservation Agent Relationship Specialty Start Date End Date Eveline Parker MD PCP - General Pediatrics 06/22/13 09/14/13 Olena Price DO PCP - General Internal Medicine 09/15/13 10/29/17 Cristiane Jackson MD PCP - General Pediatrics 10/30/17 12/04/17 Olena Price DO PCP - General Internal Medicine 12/05/17 01/23/22 Mani Rose MD [address] [place] [phone] PCP - General Internal Medicine 02/12/22 Mani Rose MD [address] [place] [phone] PCP - General Internal Medicine 01/24/22 02/11/22 documented as of this encounter
[2024-12-08 10:32] VITALS: BMI 50.2
--- NOTE | 2024-12-08 14:53 | HO.ANESPROP2 ---
Documented by User: Joslyn Jason NP 12/08/24 14:55 HPI - Anesthesia Eval Consult details Narrative: 29yo F for Upper Endoscopy BMI 50.2 PMFSH Active Problems Active Problems: All Active Problems Vitamin B12 deficiency (Acute) Vitamin D deficiency (Acute) Facial swelling (Acute) Irritable bowel syndrome with diarrhea (Acute) Abdominal pain (Acute) Tendinitis of both hips (Acute) SI (sacroiliac) joint dysfunction (Acute) Mild obstructive sleep apnea (Acute) Parasomnia (Acute) Periodic limb movement sleep disorder (Acute) Daytime sleepiness (Acute) Heart murmur (Acute) Mitral valve prolapse (Acute) Abnormal ECG (Acute) Pre-op evaluation (Acute) Morbid obesity (Acute) Sleep apnea (Acute) Shortness of breath (Acute) Night sweats (Acute) E coli infection (Acute) Lumbar discogenic pain syndrome (Acute) Morbid obesity with BMI of 50.0-59.9, adult (Acute) GERD (gastroesophageal reflux disease) (Acute) Screening for cervical cancer (Acute) Adult general medical exam (Acute) Chronic diarrhea (Acute) Low HDL (under 40) (Acute) Contusion of left knee (Acute) Mild carpal tunnel syndrome of left wrist (Acute) Medial epicondylitis of left elbow (Acute) History of lymphoma (Acute) Depression with anxiety (Acute) Laboratory exam ordered as part of routine general medical examination (Acute) Past Medical History Medical History Sleep apnea Anemia GERD (gastroesophageal reflux disease) delivery delivered Mitral valve prolapse Heart murmur Cancer Family History Family History Maternal Grandfather Diabetes Maternal Grandmother Diabetes Mother No problems noted. Father No problems noted. Daughter No problems noted. Daughter No problems noted. Daughter Hip dysplasia Surgical History Surgical History Hx of section History of appendectomy History of biopsy Social History Social History Household Members Other:: single 2 kids Housing: Apartment Alcohol intake: never Patient Tobacco Use Status: Never used Tobacco e-Cigarette/Vaping Use: Never Used Second Hand Smoke Exposure: No Use of substances other than those prescribed or required for medical reasons: No Are you DNR?: No Advance Directives: No Advance Directives Information Provided: Yes service: No 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al status: employed 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: [employer]- OA/ rt hand Cognitive needs: No Hearing needs: No Vision needs: No Meds Allergies Allergy/AdvReac Type Severity Reaction Status Date / Time No Known Allergies Allergy Verified 10/20/24 11:27 [No Known Allergies*] Home Medications ?Medication ?Instructions ?Recorded ?Confirmed ?Last Taken ?Type etonogestrel 0.12 mg-ethinyl 1 vag ring vaginal Q4W 10/14/24 10/20/24 Unknown History estradiol 0.015 mg/24 hr vaginal ring (NuvaRing) Exam Height,Weight and Vital Signs: Height 4 ft 9.5 in Weight 107.048 kg Narrative Narrative: EKG 10/2024 Vent. Rate : 84 BPM Atrial Rate : 84 BPM P-R Int : 172 ms QRS Dur : 82 ms QT Int : 378 ms P-R-T Axes : 64 70 13 degrees QTcB Int : 446 ms Normal sinus rhythm Normal ECG When compared with ECG of 26-Apr-2023 11:55, No significant change was found ECHO 2022 Conclusions: - Technically limited study but overall appears to be within normal limits Mitral Valve Likely normal mitral valve structure and function. There is no mitral valve regurgitation. There is no mitral valve stenosis. Assessment and Plan Assessment Anesthesia Assessment: Chart Reviewed Documented by User: Eve Davis MD 12/10/24 10:38 [facility]LY [facility] Past Medical History Medical History Sleep apnea Anemia GERD (gastroesophageal reflux disease) delivery delivered Mitral valve prolapse Heart murmur Cancer Family History Family History Maternal Grandfather Diabetes Maternal Grandmother Diabetes Mother No problems noted. Father No problems noted. Daughter No problems noted. Daughter No problems noted. Daughter Hip dysplasia Surgical History Surgical History Hx of section History of appendectomy History of biopsy History of Problems with Anesthesia: No Social History Social History Household Members Other:: single 2 kids Housing: Apartment Alcohol intake: never Patient Tobacco Use Status: Never used Tobacco e-Cigarette/Vaping Use: Never Used Second Hand Smoke Exposure: No Use of substances other than those prescribed or required for medical reasons: No Are you DNR?: No Advance Directives: No Advance Directives Information Provided: Yes service: No 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al status: employed 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: [employer]- OA/ rt hand Cognitive needs: No Hearing needs: No Vision needs: No Meds Allergies Allergy/AdvReac Type Severity Reaction Status Date / Time No Known Allergies Allergy Verified 10/20/24 11:27 [No Known Allergies*] Home Medications ?Medication ?Instructions ?Recorded ?Confirmed ?Last Taken ?Type etonogestrel 0.12 mg-ethinyl 1 vag ring vaginal Q4W 10/14/24 10/20/24 Unknown History estradiol 0.015 mg/24 hr vaginal ring (NuvaRing) Exam Airway Mallampati Class: III TM Dist: >3cm Neck ROM: Full Loose/Missing/Broken Teeth: No Heart: RRR Lungs: CTA Assessment and Plan Assessment Anesthesia Assessment: Anesthesia Plan Discussed and Chart Reviewed Final Anesthetic Review History of Problems with Anesthesia: No NPO: Yes ASA Class: III Final Preanesthetic Review: Meds/Allgs Chart Reviewed, Consent Obtained/Reviewed and Anes Risks/Benef Reviewed Patient Risk: Intermediate Procedure Risk: Intermediate Anesthetic Plan Anesthetic Plan: MAC: Disposition: Standard PACU
[2024-12-10 09:49] VITALS: BMI 48.3
[2024-12-10 09:54] VITALS: BP 114/53; PULSE 85; RESP 15; TEMP 36.8; O2SAT 96
[2024-12-10 09:58] LABS: UPreg QC Valid YES; Urine Pregnancy NEGATIVE (NEGATIVE)
[2024-12-10] MEDS: Lactated Ringers 1,000 ML 80 ML IVCONT (10:11)
--- NOTE | 2024-12-10 10:28 | MHC.SHP ---
Pre-Procedural Eval Section A - 24 Hr Update-Section A only Date of Service: 12/10/24 The patient is an INPATIENT: No The patient has been examined within 24 hours of the surgical procedure. The History & Physical has been completed within 30 days and I have reviewed it.: Yes Section B - Complete if H&P > 30 days Chief Complaint: Morbid (severe) obesity due to excess calories Details of Present Illness: GERD Relevant Family History (Specify if Yes): No Relevant Social History: None Present Medications: None Medical History: No relevant PMH History of Previous Operations: No relevant previous surgery Allergies: Allergies Allergy/AdvReac Type Severity Reaction Status Date / Time No Known Allergies Allergy Verified 10/20/24 11:27 [No Known Allergies*] Review of Systems Sugical H&P ROS: Negative: Constitution, Cardiovascular, Respiratory, Neurological, Psychiatric, Hem-Onc, Allergic/Immunologic, Gastrointestinal, Genitourinary, Musculoskeletal, Integumentary, Endocrine and Eyes/Ears/Nose/Throat Exam Surgical H&P Exam: Normal: HEENT, Normal: Heart, Normal: Lungs, Normal: Extremities, Normal: Abdomen, Normal: Skin and Normal: Neurological Plan Diagnosis/Plan: Unchanged (EGD to assess etiology of GERD. Risks of bleeding and perforation were discussed with the patient and she is in agreement with the plan.) I have reviewed the history and physical and performed a pertinent physical examination on my patient. No changes have occurred unless specified. Time Spent With Patient Time: Total time managing care of this patient today ____ minutes.
[2024-12-10 11:00] VITALS: BP 143/86; PULSE 98; RESP 18; TEMP 36.2; O2SAT 97
--- NOTE | 2024-12-10 11:12 | PM.OP ---
Brief Operative Note Date of Service: 12/10/24 Pre-op diagnosis: GERD Post-op diagnosis: same (& moderate size fixed diaphragmatic hernia) Procedure: PROCEDURE DATE: 12/10/2024 PREOPERATIVE DIAGNOSIS: GERD POSTOPERATIVE DIAGNOSIS: ?Same as above. 1) moderate size diaphragmatic hernia PROCEDURE: Tyakbgve-[id number] with biopsies Surgeon: ?Luis Antonio Olivo M.D.. Ph.D. Sports Management Internship: None ? Anesthesia: IV sedation Estimated blood loss: ?Minimal FINDINGS AND PROCEDURE: ? OPERATIVE INDICATIONS: ?The patient is a 29 year old female known to me who is interested in bariatric surgery. The patient has GERD. Based on this information I recommended an upper endoscopy to evaluate the patient's symptoms. Risks and complications of the surgery were discussed with the patient in advance particularly the possibility of perforation or bleeding that may require surgical intervention. The patient understood the risks and was in agreement with the plan. ? PROCEDURE: After informed consent was obtained by the patient, the patient was ?transferred to the Operating Room and was placed in the supine position.? After successful induction of IV sedation, a mouth block was inserted and the patient was placed in the left lateral decubitus position. An upper endoscopy was performed next, the oropharynx and esophagus appeared within the normal limits. There was a moderate size fixed diaphragmatic hernia. The z-line was smooth. Two biopsies were obtained from the distal esophagus 2-3 cm proximal to the GE junction and two additional biopsies from the GE junction. The stomach was entered and it appeared to be of normal size. There was no gastritis. There was no stricture or ulcer. A biopsy was obtained from the gastric fundus and the antrum. No significant bleeding was noted from any of the biopsy sites. Retroflexion of the scope confirmed the presence of a moderate size diaphragmatic hernia. The scope was then advanced into the duodenum which appeared to be normal as well. At that point the duodenum ?and the stomach were decompressed and the scope was withdrawn from the patient's mouth. The patient extubated and was transferred in stable condition to the Recovery Room for further care. I was present and performed all steps of the procedure. There were no residents to assist with this case. Luis Antonio Olivo M.D., Ph.D. Surgeon: Mark Olivo MD Anesthesia: MAC Was an Sports Management Internship used for this Procedure?: No Estimated blood loss (mL): 0 IV fluids (mL): 400 Urine output (mL): 0 (No Sweeney to record output) Pathology: other (1) antrum x1, 2) fundus x1, 3) GE junction x2, 4) distal esophagus x2) Condition: stable Disposition: PACU
[2024-12-10 11:15] VITALS: BP 112/73; PULSE 83; RESP 18; TEMP 36.2; O2SAT 100
== END 2024-12-10 11:42 | disposition home or self-care (01) ==
PROVIDERS: Nurse Practitioner; PCP Family Medicine; Visit Provider Surgery
PROC: 0DJ08ZZ Inspection of Upper Intestinal Tract, Via Natural or Artificial Opening Endoscopic (ICD-10-PCS; CPT 43235; principal; 2024-12-10 11:30)
DX: K21.9 Gastro-esophageal reflux disease without esophagitis (principal); E66.01 Morbid (severe) obesity due to excess calories; Z68.43 Body mass index [BMI] 50.0-59.9, adult; K44.9 Diaphragmatic hernia without obstruction or gangrene; D64.9 Anemia, unspecified; C85.8A Other specified types of non-Hodgkin lymphoma, in remission; Z92.21 Personal history of antineoplastic chemotherapy; I34.1 Nonrheumatic mitral (valve) prolapse; R01.1 Cardiac murmur, unspecified; G47.33 Obstructive sleep apnea (adult) (pediatric); Z79.899 Other long term (current) drug therapy; Z98.890 Other specified postprocedural states
CPT/HCPCS: 43239; 81025; 88305; 88313; 88342; J2003; J2704

== ENCOUNTER → 2024-12-10 09:38 | Outpatient (BNV) | payer OTHER, SELFPAY | PROVIDERS: PCP Family Medicine; Visit Provider Surgery | DX: K44.0 Diaphragmatic hernia with obstruction, without gangrene (principal) | CPT/HCPCS: 43239 ==

== ENCOUNTER 2024-12-23 10:30 | Outpatient (AMB) | payer OTHER, SELFPAY ==
--- NOTE | 2024-12-23 10:14 | MHC.PC.OV ---
Intake Visit Reasons: f/u labs via telemedicine Intake Note: patient is scheduled for lab review Security Assurance Specialist Required: No Allergies No Known Allergies [No Known Allergies*] Allergy (Verified 12/23/24 10:15) Tobacco use date assessed: 03/12/24 Dental Screening Dental Screen Date: 03/12/24 HPI f/u labs via telemedicine HPI Details 29 y/o female presents to f/u labs via telemed. Labs drawn 10/27/24. Hgb mildly low at 11.9. A1c 5.4%. Triglycerides 108. TC 178. LDL 112. HDL 45. Vitamin D low at 23.8. FORMERLY [facility] Medical History Sleep apnea Anemia GERD (gastroesophageal reflux disease) delivery delivered Mitral valve prolapse Heart murmur Cancer Surgical History Hx of section History of appendectomy History of biopsy Family History Maternal Grandfather Diabetes Maternal Grandmother Diabetes Mother No problems noted. Father No problems noted. Daughter No problems noted. Daughter No problems noted. Daughter Hip dysplasia Social History (Updated 12/21/24 @ 15:10 by Georgina Peterson CNA) Household Members Other:: single 3 kids Housing: Apartment Alcohol intake: never Patient Tobacco Use Status: Never used Tobacco e-Cigarette/Vaping Use: Never Used Second Hand Smoke Exposure: No service: No 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al status: employed 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: [employer] [place] Cognitive needs: No Hearing needs: No Vision needs: No Questionnaire Thrive Questionnaire Date Thrive assessed: 03/12/24 ANGEL-7 AMB Questionnaire ANGEL-7 Date ANGEL - 7 assessed: 03/12/24 Source: Developed by Drs. Aston Carlos, Danica Carreno, Remigio Edwards and colleagues, with an educational neli from [employer]. Review of Systems Const Denies chills, Denies fatigue, Denies fever(s), Denies headache(s) and Denies weakness ENT Denies dizziness and Denies headache(s) Card Denies dyspnea Resp Denies cough, Denies dyspnea, Denies wheezing and Denies other (shortness of breath) Musc Denies numbness and Denies tingling Neuro Denies dizziness, Denies headache(s), Denies numbness, Denies tingling and Denies weakness Psych Denies anxiety and Denies depression Endo Denies fatigue Aller/Immun Denies wheezing Physical exam (Primary Care) Tobacco/Smoking Status: Tobacco use Status Tobacco use date assessed 03/12/24 12/23/24 10:16 Patient Tobacco Use Status Never used Tobacco 12/23/24 10:16 e-Cigarette/Vaping Use Never Used 12/23/24 10:16 Thrive Assessment: Date of Thrive Assessment Date Thrive assessed 03/12/24 12/23/24 10:16 Telehealth Telehealth Telehealth Platform: Telephone Location of provider rendering services: practice address Location of patient: address on file Patient Identification confirmed using: Name, : Yes Telehealth method: voice only Patient verbally consented to treatment: Yes Patient verbally consented to billing insurance company: Yes Patient informed of any privacy concerns related to visit: Yes Minutes spent on Phone/Video with Pt.: 4 Coding Level of Care Code Tele Est Pt Level 2 (68760) Diagnoses Elevated LDL cholesterol level E78.00 Vitamin D deficiency E55.9 Assessment & Plan Assessment & Plan (1) Elevated LDL cholesterol level: Code(s): E78.00 - Pure hypercholesterolemia, unspecified Category: Medical Plan: Mildly?elevated?LDL?cholesterol Work?on?a?diet?lower?in?saturated?fats?and?cholesterol She?is?working?with??Sidney?top?of?less?and?will?have?bariatric?surgery?soon?which?will?also?improve?lipid?levels (2) Vitamin D deficiency: Code(s): E55.9 - Vitamin D deficiency, unspecified Category: Medical Plan: She?has?started?vitamin-D?supplementation Will?monitor
--- OUTSIDE RECORDS SUMMARY | 2024-12-23 11:31 | XMS_ITS | Clinical Summary ---
Author Organization [employer] Address [address] [facility] 7t [place] [address] Care Team Providers Care Health Screener Name Role Phone Unavailable Primary Care Provider Unavailabl e Allergies No known active allergies Medications No known medications Active Problems Problem Noted Date Diagnosed Date Known health problems: none Encounters Date Type Department Care Team Description 12/03/2024 1:30 PM EDT Office Visit [facility] [address] [place] [address] Palak Martinez DMD Known health problems: none (Primary Dx) 11/24/2024 Telephone [facility] [address] [place] [address] Anabela Arredondo from Last 3 Months Social [...] 1995 Lipid Panel 1995 SDOH Screening 1995 Disability Screening 1995 Alcohol/Substance Use Screening 2007 Tobacco [...] on patient's age to complete this topic Meningococcal B Vaccine Aged Out No l onger eligible based on patient's age to complete [...] PM EDT from Last 3 Months Insurance [facility] STAND ADULT [address] [place] [address] # [address] [place] [address] # [address] [place] [address] # [address] [place] [address]
== END 2024-12-23 17:05 | disposition home or self-care (01) ==
LOC: HO.HMCFM 10:30
PROVIDERS: PCP Family Medicine; Visit Provider Family Medicine
DX: E78.00 Pure hypercholesterolemia, unspecified (principal); E55.9 Vitamin D deficiency, unspecified

== ENCOUNTER → 2024-12-23 10:30 | Outpatient (BNVA) | payer OTHER, SELFPAY | PROVIDERS: PCP Family Medicine; Visit Provider Family Medicine ==

== ENCOUNTER → 2025-01-01 08:06 | Outpatient (BNVA) | payer OTHER, SELFPAY | PROVIDERS: PCP Family Medicine; Visit Provider Surgery ==

== ENCOUNTER 2025-04-30 10:05 | Outpatient (REF) | payer OTHER, SELFPAY ==
--- NOTE | ~2025-04-30 | US_ITS ---
EXAMINATION: US ABDOMEN COMPLETE WITH LIVER ELASTOGRAPHY HISTORY: E66.01 - Morbid (severe) obesity due to excess calories TECHNIQUE: Real-time grayscale ultrasound imaging of the abdomen was performed and images were reviewed. COMPARISON: Comparison is made with the prior examination dated 05/14/2023. FINDINGS: Liver: The right lobe of the liver measures 18.2 cm in size. The left lobe of the liver measures 7.2 cm in size. The liver demonstrates increased echotexture, consistent with steatosis. No focal mass or intrahepatic biliary ductal dilatation is identified. There is normal hepatopedal flow in the portal vein. Ultrasound elastography of the liver was performed with 10 separate measurements of the liver parenchyma with the patient in the supine position. Measurements were obtained approximately 2 cm below Royce's capsule and perpendicular to the capsule. The median shear wave velocity is 1.71 m/s (previously 1.91 m/s). The interquartile range/median (IQR/median) is 0.1. Gallbladder and biliary tree: There are tiny polyps along the gallbladder wall. The gallbladder is otherwise unremarkable, without evidence of calculi, wall thickening, or pericholecystic fluid. There is no sonographic Silva sign. The common bile duct is normal in caliber measuring 2 mm. Kidneys: The right kidney measures 10.2 cm in length. The left kidney measures 9.8 cm in length. The kidneys are unremarkable, without evidence of masses, hydronephrosis, or calculi. Pancreas: The pancreatic head, neck, and body are unremarkable. The pancreatic tail is obscured by bowel gas. Spleen: The spleen is normal in size and contour, measuring 10.2 cm in length. Abdominal aorta and inferior vena cava: The visualized portions of the abdominal aorta and inferior vena cava are normal in caliber. There is no free fluid in the abdomen. US/US abdomen comp w elastography IMPRESSION: Hepatic steatosis. The median shear wave velocity in the liver is 1.71 m/s, corresponding to a median liver stiffness of 8.87 kPa. The IQR/median value is 0.12. This is indicative of a quality data set. Findings are indicative of a high elastography value suggestive of compensated advanced chronic liver disease. REFERENCE: Society of [employer] in Ultrasound Liver Stiffness Thresholds (2020): LIVER STIFFNESS THRESHOLDS: *Shear wave velocity less than 1.3 m/s (Liver Stiffness equal or less than 5 kPa): High probability of being normal. *Shear wave velocity less than 1.7 m/s (Liver Stiffness less than 9 kPa): In the absence of other known clinical signs, rules out compensated advanced chronic liver disease. *Shear wave velocity between 1.7-2.1 m/s (Liver Stiffness 9-13 kPa): Suggestive of compensated advanced chronic liver disease but need further test for confirmation. *Shear wave velocity between 2.1-2.4 m/s (Liver Stiffness 13-17 kPa): Rules in compensated advanced chronic liver disease. *Shear wave velocity greater than 2.4 m/s (Liver Stiffness over 17 kPa): Suggestive of clinically significant portal hypertension. QUALITY OF DATA SET: *IQR/Median value equal or less than 0.15 implies a quality data set. *IQR/Median value over 0.15 implies a poor quality data set. SIGNIFICANT CHANGE FROM PRIOR EXAM: Significant change if liver stiffness measurement is 10% or greater from prior exam. OTHER CONSIDERATIONS: The stage of liver fibrosis may be overestimated in the setting of acute hepatitis, liver inflammation, elevated liver function tests, hepatic vascular congestion, obstructive cholestasis, non-fasting state, and infiltrative diseases such as amyloidosis and lymphoma. In some patients with NAFLD, the liver stiffness thresholds for compensated advanced chronic liver disease may be lower. In causes other than viral hepatitis and NAFLD, liver stiffness thresholds are not well established. Electronically signed by: Aston Nicholas MD 04/30/2025 11:04 AM EDT
--- OUTSIDE RECORDS SUMMARY | 2025-04-30 10:54 | XMS_ITS | Clinical Summary ---
Author Organization [employer] Address [address] [facility] 7[address] [place] [address] Care Team Providers Care Upholsterer [employer] Name Role Phone Unavailable Primary Care Provider Unavailabl e Allergies No known active allergies Medications No known medications Active Problems Problem Noted Date Diagnosed Date Known health problems: none Social History Tobacco Use Types Packs/Day Years [...] Years) and At-Risk Patients (6 to 49) Years (2 of 2 - PCV) 05/26/2014 05/26/2013 Pap Smear 02/02/2016 COVID-19 Vaccine (2 - Moderna risk series) 07/19/2021 06/21/2021 Cervical Cancer Screening 2025 HPV/Cotest 2025 Influenza Vaccine (#1) 2025 4, 08/26/2023, 05/11/2020, Additional history exists DTaP/Tdap/Td Vaccines [...] on patient's age to complete this topic Insurance [facility]AL-[facility] MEDICAID STAND ADULT # [address] [place] [address] # [address] [place] [address] [address] [place] [address] [address] [place] [address]
== END 2025-04-30 10:06 | disposition home or self-care (01) ==
LOC: HO.US 10:05
PROVIDERS: PCP Family Medicine; Visit Provider Surgery
DX: E66.01 Morbid (severe) obesity due to excess calories (principal); Z68.43 Body mass index [BMI] 50.0-59.9, adult; K21.9 Gastro-esophageal reflux disease without esophagitis; G47.33 Obstructive sleep apnea (adult) (pediatric)
CPT/HCPCS: 76700; 76981

== ENCOUNTER → 2025-04-30 10:08 | Outpatient (BNV) | payer OTHER, SELFPAY | PROVIDERS: PCP Family Medicine; Visit Provider Radiology Diagnostic Radiology | DX: K76.0 Fatty (change of) liver, not elsewhere classified (principal) | CPT/HCPCS: 76700 ==